=== PATIENT | female | born 1940 | race Caucasian/White ===

== ENCOUNTER → 2016-12-02 | Outpatient (CLI) | payer OTHER ==
[~2016-12-02] MED LIST: ASPI81TA21 PO; ATOR10TA82 PO; NXM/40 PO
[2016-12-02 09:51] LABS: ALT/SGPT 22 U/L (12-78); BLOOD UREA NITROGEN 20 mg/dl (7-18); BUN/CREATININE RATIO 25.3 (10-20); CARBON DIOXIDE 26 mmol/L (21-32); CHLORIDE 110 mmol/L (98-107); CHOLESTEROL 264 mg/dl (0-200); CREATININE 0.78 mg/dl (0.60-1.20); GLUCOSE 92 mg/dl (70-99); SODIUM 142 mmol/L (136-145); TRIGLYCERIDES 250 mg/dl (0-150); VERY LOW DENSITY LIPOPROT CALC 50 mg/dl
[2016-12-02 09:54] LABS: ALB/GLOB RATIO 1.1 (0.9-2); ALKALINE PHOSPHATASE 72 U/L (45-117); AST/SGOT 15 U/L (15-37); CHOLESTEROL/HDL RATIO 4.6; HDL CHOLESTEROL 57 mg/dl; LDL CHOLESTEROL CALCULATED 157 mg/dl
[2016-12-02 10:14] LABS: CALCIUM 9.5 mg/dl (8.5-10.1)
== END | disposition home or self-care (01) ==
LOC: C.LAB1850 07:16
PROVIDERS: ATTEND Internal Medicine
DX: E78.00 Pure hypercholesterolemia, unspecified (principal); R03.0 Elevated blood-pressure reading, without diagnosis of hypertension

== ENCOUNTER → 2017-06-12 | Outpatient (CLI) | payer OTHER ==
[2017-06-12 10:15] LABS: BASO % 0.2 %; BASO ABS # 0.01 K/uL (0-0.2); COMPLETE YES; EOS % 2.8 %; HEMATOCRIT 40.7 % (37-47); LYMPH % 45.8 %; LYMPH ABS # 2.64 K/uL (1.2-3.4); MEAN CELL VOLUME 98.3 fL (80-100); MEAN CORPUSCULAR HEMOGLOBIN 33.3 pg (25-34); MEAN CORPUSCULAR HGB CONC 33.9 g/dl (32-36); MEAN PLATELET VOLUME 11.1 fL (7.4-10.4); MONO % 7.3 %; NEUT % 43.9 %; PLATELET COUNT 192 K/uL (130-400); RED BLOOD COUNT 4.14 M/uL (4.2-5.4); WHITE BLOOD COUNT 5.77 K/uL (4.8-10.8)
[2017-06-12 10:45] LABS: ALKALINE PHOSPHATASE 66 U/L (45-117); ALT/SGPT 22 U/L (12-78); AST/SGOT 17 U/L (15-37); BLOOD UREA NITROGEN 18 mg/dl (7-18); BUN/CREATININE RATIO 22.3 (10-20); CALCIUM 8.9 mg/dl (8.5-10.1); CARBON DIOXIDE 24 mmol/L (21-32); CHLORIDE 107 mmol/L (98-107); CHOLESTEROL 259 mg/dl (0-200); CHOLESTEROL/HDL RATIO 4.4; CREATININE 0.79 mg/dl (0.60-1.20); GLUCOSE 98 mg/dl (70-99); HDL CHOLESTEROL 59 mg/dl; POTASSIUM 3.9 mmol/L (3.5-5.1); SODIUM 141 mmol/L (136-145)
[2017-06-12 10:59] LABS: ALB/GLOB RATIO 1.1 (0.9-2); LDL CHOLESTEROL CALCULATED 149 mg/dl; TRIGLYCERIDES 254 mg/dl (0-150); VERY LOW DENSITY LIPOPROT CALC 51 mg/dl
== END | disposition home or self-care (01) ==
LOC: C.LAB1850 07:53
PROVIDERS: ATTEND Internal Medicine
DX: R03.0 Elevated blood-pressure reading, without diagnosis of hypertension (principal); E78.00 Pure hypercholesterolemia, unspecified

== ENCOUNTER 2017-10-04 09:17 | Emergency (ER) | payer OTHER ==
[~2017-10-04] VITALS: Ht 157.5 cm; Wt 89.0 kg
[2017-10-04 09:29] VITALS: Ht 157.5 cm; Wt 89.0 kg
--- NOTE | 2017-10-04 09:53 | DIAGNOSTIC IMAGING REPORT ---
L HUMERUS MIN 2 VIEWS ROUTINE CLINICAL HISTORY: Left humeral pain status post trauma COMPARISON: None DISCUSSION: No acute fractures are visualized. Degenerative changes are present within the shoulder. Degenerative changes are present within the elbow. IMPRESSION: Arthritic change. No acute fractures or dislocations identified Electronically signed by: Renzo Blunt M.D. 10/04/2017 9:52 AM Dictated Date/Time: 10/04/2017 9:51 AM
[2017-10-04] MEDS ORDERED: LOVA10TA3 PO (10:08)
--- NOTE | 2017-10-04 10:46 | EMERGENCY ROOM VISIT NOTE ---
ED Visit Note First contact with patient: 09:34 CHIEF COMPLAINT: Left shoulder injury 2 days ago HISTORY OF PRESENT ILLNESS: Patient is a [id number] 77-year-old white female who presents emergency department accompanied by family for evaluation of left upper arm pain after a fall 2 days ago. Patient speaks primarily Indonesian, does understand some Ethiopian and her son is acting as a sybase developer for her. Patient was walking on a sidewalk 2 days ago, and fell, landing directly on the left shoulder with immediate onset of pain in the left upper arm. She denies hearing any cracking or popping at the time of the injury. She notes that the pain is between her shoulder and her left upper arm. There is limitation of motion of the shoulder because of the pain. She has not taken any medication for pain, but has been applied a topical Aspercreme. She denies any elbow or wrist pain. REVIEW OF SYSTEMS: Review of systems as per HPI. All other systems reviewed were negative. At least 6 systems reviewed. PMH: Electronic medical records are reviewed and summarized as above/below. See Problem List. SOCIAL HISTORY: Patient lives at home with her family. Non-smoker.. PHYSICAL EXAM: Vital Signs: Reviewed nurse's notes. CONSTITUTIONAL: Patient is a pleasant, well-appearing 77-year-old white female who is awake and alert and seated on the gurney in no acute distress. MUSCULOSKELETAL: Examination of the left upper extremity does not note any obvious deformity, no ecchymosis, abrasions or outward signs of trauma. Clavicle and acromioclavicular joint are nontender to palpation. She has some discomfort over the proximal to mid upper humerus, no fracture crepitus appreciated. Elbow is without joint effusion and wrist is nontender. Elbow and wrist range of motion are full. The patient can be passively internally and externally rotated at the shoulder, but has pain. She has discomfort with any attempts at forward flexion or abduction. The left upper extremity is neurovascularly intact. EMERGENCY DEPARTMENT COURSE: Left humerus x-rays were obtained and noted arthritic changes, but no evidence for acute fracture. No dislocation. X-ray findings were discussed with the patient's family. She was agreeable to an arm sling, however gentle range of motion exercises were discussed with her to minimize development of a frozen shoulder. She was encouraged to use Tylenol for discomfort, and follow-up with her PCP or for orthopedics for further care if her symptoms are not improving. Differential diagnoses entertained included clavicle fracture, acromioclavicular separation, shoulder dislocation/ subluxation, proximal humerus fracture, among others. Medication reconciliation: I attest that I have personally reviewed the patient' s current medication list. Blood pressure screening: Patient was found to have a slightly elevated blood pressure due to circumstances. I do not believe that the patient requires hypertension monitoring. L HUMERUS MIN 2 VIEWS ROUTINE CLINICAL HISTORY: Left humeral pain status post trauma COMPARISON: None DISCUSSION: No acute fractures are visualized. Degenerative changes are present within the shoulder. Degenerative changes are present within the elbow. IMPRESSION: Arthritic change. No acute fractures or dislocations identified Left shoulder injury 2 days ago Problem List Medical Problems: (1) Dyslipidemia Status: Chronic (2) GERD (gastroesophageal reflux disease) Status: Chronic Current/Historical Medications Scheduled Aspirin Enteric Coated (Ecotrin Or Generic), 81 MG PO DAILY Lovastatin (Mevacor), 10 MG PO HS Allergies Coded Allergies: Penicillins (Verified Allergy, Mild, 10/04/17) TACHYCARDIA Vital Signs Date Time Temp Pulse Resp B/P (MAP) Pulse Ox O2 Delivery O2 Flow Rate FiO2 10/04/17 11:20 37.2 66 18 155/99 94 10/04/17 11:10 66 18 155/99 94 Room Air 10/04/17 09:29 37.2 66 18 161/105 94 Room Air Departure Information Impression Primary Impression: Shoulder contusion Referrals RV. King MD (PCP) Patient Instructions My [facility] Additional Instructions Acetaminophen(Tylenol) may be used for fever or pain. Use 1000mg every six hours as needed. Avoid using more than 3000mg in a 24 hour period. This medication can be taken if you need to drive, work, or perform activities which may be dangerous when taking narcotic pain medication. Ice compresses for 20 minutes at a time four times daily for 2-3 days. Use the sling as instructed. Remove your arm from the sling 4-6 times a day and move all the joints around to keep them loose. Rest and elevate your injury. Continue current medications. Return to the ER immediately for any numbness, tingling, severe pain, extreme swelling in the extremity or as needed. Follow-up with your primary care physician or with orthopedic surgery if your symptoms are not improving in the next 5-7 days. Problem Qualifiers Primary Impression: Shoulder contusion Encounter type: initial encounter Laterality: left Qualified Codes: S40.012A - Contusion of left shoulder, initial encounter
[2017-10-04 11:20] VITALS: BP 155/99; PULSE 66; TEMP 37.2; O2SAT 94
== END 2017-10-04 11:21 | disposition home or self-care (01) ==
LOC: C.EDB 09:18 → C.EDA 11:21
DX: S40.012A Contusion of left shoulder, initial encounter (principal); W19.XXXA Unspecified fall, initial encounter; Y92.480 Sidewalk as the place of occurrence of the external cause; E78.5 Hyperlipidemia, unspecified; K21.9 Gastro-esophageal reflux disease without esophagitis; Z79.82 Long term (current) use of aspirin; Z79.899 Other long term (current) drug therapy; Z88.0 Allergy status to penicillin

== ENCOUNTER → 2017-12-11 | Outpatient (CLI) | payer OTHER ==
[~2017-12-11] MED LIST changes: +ASPI-319 PO; -ASPI81TA21 PO; -ATOR10TA82 PO; +LOVA10TA3 PO; -NXM/40 PO
[2017-12-11 09:50] LABS: HEMOGLOBIN A1C 5.5 % (4.5-5.6)
[2017-12-11 10:12] LABS: ALBUMIN 3.7 gm/dl (3.4-5.0); AST/SGOT 26 U/L (15-37); BLOOD UREA NITROGEN 15 mg/dl (7-18); CALCIUM 8.8 mg/dl (8.5-10.1); CARBON DIOXIDE 26 mmol/L (21-32); CREATININE 0.85 mg/dl (0.60-1.20); GLUCOSE 109 mg/dl (70-99); POTASSIUM 4.1 mmol/L (3.5-5.1); SODIUM 142 mmol/L (136-145)
[2017-12-11 10:22] LABS: ALKALINE PHOSPHATASE 71 U/L (45-117); ALT/SGPT 26 U/L (12-78); CHOLESTEROL 262 mg/dl (0-200); LDL CHOLESTEROL CALCULATED 171 mg/dl; TOTAL PROTEIN 7.4 gm/dl (6.4-8.2)
== END | disposition home or self-care (01) ==
LOC: C.LAB1850 07:08
PROVIDERS: ATTEND Internal Medicine
DX: E78.00 Pure hypercholesterolemia, unspecified (principal); R73.03 Prediabetes

== ENCOUNTER 2019-06-08 11:57 | Inpatient (IN) ==
[2019-06-08] MEDS ORDERED: ONDANSETRON INJ 2 MG/ML 2 ML VIAL IV STA (12:12)
[2019-06-08] MEDS ORDERED: SODIUM CHLORIDE 0.9% 1000ML 1,000 ML IV SCH (12:15)
[2019-06-08 12:32] LABS: Basophils # (auto) 0.03 K/uL (0-0.2); Basophils % (auto) 0.3 %; Hematocrit (blood only) 43.6 % (37-47); Hemoglobin 14.6 g/dL (12.0-16.0); Immature Granulocytes # (auto) 0.02 K/uL (0.00-0.02); Immature Granulocytes % (auto) 0.2 %; Lymphocytes # (auto) 3.35 K/uL (1.2-3.4); Lymphocytes % (auto) 34.3 %; Mean Corpuscular Hemoglobin 33.3 pg (25-34); Mean Corpuscular Hgb Conc 33.5 g/dL (32-36); Mean Corpuscular Volume 99.3 fL (80-100); Mean Platelet Volume 10.6 fL (7.4-10.4); Monocytes # (auto) 0.78 K/uL (0.11-0.59); Neutrophils % (auto) 56.2 %; Platelet Count 193 K/uL (130-400); RDW Coefficient of Variation 12.6 % (11.5-14.5); Red Blood Count 4.39 M/uL (4.2-5.4); White Blood Count 9.78 K/uL (4.8-10.8)
[2019-06-08 12:44] LABS: Partial Thromboplastin Ratio 0.9; Partial Thromboplastin Time 24.8 Seconds (21.0-31.0)
[2019-06-08] MEDS: MoRPHine SULFATE 4 MG/ML 1 ML CARP\\VIAL IV PRN ×2 (12:44→13:19)
[2019-06-08 12:47] LABS: Alanine Aminotransferase 21 U/L (12-78); Aspartate Aminotransferase 16 U/L (15-37); Blood Urea Nitrogen 29 mg/dl (7-18); Calcium 9.5 mg/dl (8.5-10.1); Carbon Dioxide 25 mmol/L (21-32); Chloride 108 mmol/L (98-107); Creatinine Clr Calc Pharmacy 43.7 ml/min; Est GFR (African American) 53.9; Est GFR (Non-African American) 46.5; Glucose 86 mg/dl (70-99); Lipase 176 U/L (73-393); Potassium 4.4 mmol/L (3.5-5.1); Sodium 139 mmol/L (136-145)
[2019-06-08 12:50] LABS: Appearance Urine Clear (Clear); Bacteria Urine Automated Negative (Negative); Bilirubin Urine Negative (Negative); Blood Urine Negative (Negative); Color Urine Yellow; Epithelial Cell Urine Auto 20-30 /lpf (0-5); Glucose Urine UA Negative (Negative); Ketones Urine Negative (Negative); Leukocyte Esterase Urine Trace (Negative); Nitrite Urine Negative (Negative); Protein Urine Negative (Negative); RBC Urine Automated 0-4 /hpf (0-4); Specific Gravity Urine 1.022 (1.000-1.030); Urobilinogen Urine Negative (Negative)
[2019-06-08 12:52] LABS: Albumin Globulin Ratio 1.1 (0.9-2); Alkaline Phosphatase 76 U/L (45-117); Bilirubin,Total 0.5 mg/dl (0.2-1); Globulin 3.6 gm/dl (2.5-4.0); Total Protein 7.6 gm/dl (6.4-8.2); Troponin I < 0.015 ng/ml (0-0.045)
--- NOTE | 2019-06-08 13:24 | CT Scan Report ---
CT SCAN OF THE ABDOMEN AND PELVIS WITHOUT CONTRAST CLINICAL HISTORY: Left flank pain COMPARISON STUDY: March 13, 2013 TECHNIQUE: CT scan of the abdomen and pelvis was performed from the lung bases to the proximal femurs . Images are reviewed in the axial, sagittal, and coronal planes. IV contrast was not administered fo r this examination. A dose lowering technique was utilized adhering to the principles of ALARA. CT DOSE: 1014.87 mGy.cm FINDINGS: The examination is compromised due to patient motion artifact. Lower chest: There is respiratory motion artifact. There are lower lobe atelectatic changes. There is cardiac enlargement. Liver: The unenhanced liver is normal in size, contour, and attenuation. There is no intrahepatic shannan iary ductal dilatation. Gallbladder: Unremarkable. Spleen: Normal in size and attenuation. Pancreas: Unremarkable. Adrenal glands: Unremarkable. Kidneys: There are multiple bilateral parapelvic renal cysts. There are bilateral prominent extrarena l pelvises. No renal calculi are visualized. No ureteral or bladder calculi are evident. There is equ ivocal infiltration of the left renal sinus fat. Evaluation is difficult due to motion artifact this level. Clinical and correlation in regards to a urinary tract infection is recommended. Bowel: There are no transition zones to indicate bowel obstruction. By history the appendix is surgic ally absent. There is no acute diverticulitis. Peritoneum: There is no intraperitoneal free air or abdominal ascites. Vasculature: The abdominal aorta is normal in course and caliber. Adenopathy: None. Pelvic viscera: The bladder, and pelvic viscera are unremarkable. Skeletal structures: No destructive osseous lesions are seen. IMPRESSION: 1. Examination limited due to patient motion artifact. 2. No evidence of bowel obstruction. No evidence of free air 3. Surgically absent appendix. No evidence of acute diverticulitis 4. No renal, ureteral, or bladder calculi identified 5. Prominent extrarenal pelvises. Possible mild infiltration of the left renal peripelvic fat. Clinic al correlation in regards to urinary tract infection is recommended Electronically signed by: Renzo Blunt M.D. 06/08/2019 1:23 PM
[2019-06-08] MEDS ORDERED: cefTRIAXone SODIUM 1,000 MG/50 ML BAG IV STA (14:06)
[2019-06-08] MEDS ORDERED: OPTIRAY 320 125ml IV PRN (16:04)
--- NOTE | 2019-06-08 16:20 | CT Scan Report ---
CT ANGIOGRAM OF THE CHEST CLINICAL HISTORY: Atypical chest pain. Possible pulmonary embolism. COMPARISON STUDY: No previous studies for comparison. TECHNIQUE: Following the IV administration of 119 mL of Optiray-320, CT angiogram of the thorax was p erformed from the thoracic inlet to the lung bases utilizing the pulmonary embolus protocol. Images a re reviewed in the axial, sagittal, and coronal planes. IV contrast was administered without complica tion. MIP imaging was performed. A dose lowering technique was utilized adhering to the principles o f ALARA. CT DOSE: 659.87 mGy.cm FINDINGS: No pathologically enlarged axillary mediastinal or hilar lymph nodes were visualized. There was no evidence of thoracic aortic dilatation. No central emboli are visualized. Evaluation of lower lobe pulmonary artery branches is limited due t o respiratory motion artifact No pleural effusions are visualized. Parenchymal evaluation is limited due to respiratory motion artifact. There are dependent atelectatic changes. There are no areas of parenchymal consolidation to indicate a pneumonia. There are no signi ficant pleural effusions. There is a solid 3 mm right upper lobe pulmonary nodule, and solid 3 mm rig ht lower lobe pulmonary nodule. In a low risk patient, no further follow-up is indicated. There are p ostsurgical changes within the right upper lobe. IMPRESSION: 1. Study compromised due to respiratory motion artifact. 2. No evidence of acute pulmonary embolism. There is limited evaluation of the lower lobe subsegment al branches. If there is a persistent strong clinical concern over the presence of pulmonary embolism , then correlation with leg ultrasonography should be obtained 3. No evidence of pneumonia 4. Subcentimeter pulmonary nodules. In a low risk patient, no further follow-up is indicated. Electronically signed by: Renzo Blunt M.D. 06/08/2019 4:19 PM
--- NOTE | 2019-06-08 16:42 | Emergency Department Note ---
Entered by Lydia Valladares acting as a scribe for Sergey Park DO History of Present Illness General Chief complaint: Flank Pain Stated complaint: LEFT SIDE FLANK PAIN Source: patient and family History of Present Illness Onset (ago): hour(s) 4 Location: left (flank) Radiation: abdomen Pain Consistency: + other (sudden) Maximum Pain Intensity: 10 Quality: + other (flank pain) Associated symptoms: + other (Left flank pain, dark colored urine); no chest pain and no nausea/vomiting Treatments prior to arrival: none The patient is a 78 year old female presenting to the Emergency Department complaining of persistent flank pain starting 4 hours ago. The patients son reports that the patient has severe left sided flank pain. He states that the patients pain radiates to her abdomen. He explains that the patients urine has been dark. He notes that the patient has never experienced these symptoms before. He adds that the patient has taken no medications for her symptoms. The patients son denies that the patient has nausea, vomiting, chest pain, history of kidney stones, use of alcohol and history of smoking. Home Medications Home Medications Medication Instructions Recorded Confirmed Type ibuprofen [Advil] 200 mg PO Q6H PRN 06/08/19 06/08/19 History lovastatin 20 mg PO QAM 06/08/19 06/08/19 History Allergies Allergy/AdvReac Type Severity Reaction Status Date / Time Penicillins Allergy Mild Verified 10/04/17 10:06 Past Med/Surg History Medical History High cholesterol Surgical History History of colonoscopy Social History Preferred Language: Yemeni Feels Safe at Home: Yes Smoking Status: Never smoker Review of Systems See HPI for pertinent positives & negatives. and A total of 10 systems reviewed and were otherwise negative Physical Exam Vital Signs Vital Signs - 24 hr 06/08/19 12:01 06/08/19 12:39 06/08/19 12:42 Temperature 37 C Temperature Source Oral Sepsis Recent Fever Within 48 Hours No Sepsis Action Taken by Nursing No Action Required Oxygen Flow Rate - Titration Pulse Oximetry Post Tiitration Pulse Rate 83 Pulse Rate [Left Finger] 70 Pulse Rhythm Regular Pulse Strength Normal Respiratory Rate 20 20 Respiratory Effort / Characteristics Non-Labored Spontaneous Non-Labored Respiratory Depth Normal Normal Respiratory Pattern Regular Regular Blood Pressure 152/83 H Blood Pressure [Right Arm] 158/75 H Blood Pressure Mean 106 Blood Pressure Mean [Right Arm] 102 Blood Pressure Position Sitting Pulse Oximetry 97 93 95 Oxygen Delivery Method Room Air Room Air Room Air 06/08/19 14:08 06/08/19 14:16 06/08/19 16:08 Temperature Temperature Source Sepsis Recent Fever Within 48 Hours Sepsis Action Taken by Nursing Oxygen Flow Rate - Titration 2 Pulse Oximetry Post Tiitration 94 Pulse Rate Pulse Rate [Left Finger] 64 71 Pulse Rhythm Pulse Strength Respiratory Rate 20 20 Respiratory Effort / Characteristics Respiratory Depth Respiratory Pattern Blood Pressure Blood Pressure [Right Arm] 131/60 167/92 H Blood Pressure Mean Blood Pressure Mean [Right Arm] 83 117 Blood Pressure Position Pulse Oximetry 91 87 L 91 Oxygen Delivery Method Room Air Room Air Room Air 06/08/19 16:24 Temperature Temperature Source Sepsis Recent Fever Within 48 Hours Sepsis Action Taken by Nursing Oxygen Flow Rate - Titration 2 Pulse Oximetry Post Tiitration 94 Pulse Rate Pulse Rate [Left Finger] Pulse Rhythm Pulse Strength Respiratory Rate Respiratory Effort / Characteristics Respiratory Depth Respiratory Pattern Blood Pressure Blood Pressure [Right Arm] Blood Pressure Mean Blood Pressure Mean [Right Arm] Blood Pressure Position Pulse Oximetry 87 L Oxygen Delivery Method Room Air GENERAL: Patient is awake, alert, and in no acute distress. Patient is very anxious appearing and uncomfortable. EYES: The conjunctivae are clear. The pupils are round and reactive. EARS, NOSE, MOUTH AND THROAT: The nose is without any evidence of any deformity. Mucous membranes are moist.Tongue is midline NECK: The neck is nontender and supple. RESPIRATORY: Normal respiratory effort is noted. There is no evidence of whee zing rhonchi or rales to auscultation. CARDIOVASCULAR: Regular rate and rhythm noted. There no murmurs rubs or gallops normal S1 normal S2 GASTROINTESTINAL: The abdomen is soft. Bowel sounds are present in all quadrants. Abdomen is nontender. BACK: Left CVA tenderness to percussion. No midline tenderness or or step-off noted range of motion in flexion extension as well as rotation no signs of mus jett spasm noted. MUSCULOSKELETAL/EXTREMITIES: There is no evidence of gross deformity. Full range of motion is noted in the hips and shoulders. SKIN: There is no obvious evidence of any rash. There are no petechiae, pallor or cyanosis noted. NEUROLOGIC: Patient is awake alert and oriented x3. Course 1209: The patient was evaluated in room B2, and a complete history and physical examination were performed. 1449: I reevaluated the patient at this time. 1637: I discussed the patient's case with Dr. Person - [facility] hospitalist. He will evaluate the patient for further management. Administered Medications Ioversol (Optiray 320 125ml) 119 ml IV ONCE PRN PRN Reason: Interaction Checking Stop: 06/12/19 16:03 Last Admin: 06/08/19 16:04 Dose: 119 ml Documented by: [id number] Morphine Sulfate (Morphine Sulfate) 4 mg IV Q15M PRN PRN Reason: Pain Stop: 06/22/19 12:11 Last Admin: 06/08/19 13:19 Dose: 4 mg Documented by: [id number] Admin: 06/08/19 12:44 Dose: 4 mg Documented by: [id number] Discontinued Medications Sodium Chloride (Nss 1000ml) 1,000 mls @ 999 mls/hr IV .Q1H1M DYLON Stop: 06/08/19 13:15 Last Infusion: 06/08/19 14:09 Dose: 0 mls/hr Documented by: [id number] Admin: 06/08/19 12:44 Dose: 999 mls/hr Documented by: [id number] Ceftriaxone Sodium (Rocephin) 1,000 mg in 50 mls @ 100 mls/hr IV NOW STA Stop: 06/08/19 14:35 Last Infusion: 06/08/19 14:47 Dose: 0 mls/hr Documented by: [id number] Admin: 06/08/19 14:14 Dose: 100 mls/hr Documented by: [id number] Ondansetron HCl (Zofran) 4 mg IV NOW STA Stop: 06/08/19 12:13 Last Admin: 06/08/19 12:44 Dose: 4 mg Documented by: [id number] Medical Decision Making Differential Diagnosis Differential diagnosis: Etiologies such as shingles, pyelonephritis/UTI, renal colic, appendicitis, diverticulitis, mesenteric ischemia, torsion, aortic pathology, infections, inf lammatory bowel disease, bowel obstruction, PUD, biliary pathology, as well as others were entertained. Medical Records Attestation: I reviewed the patient's medical records. Home Medications Current Medication List: was personally reviewed by me Laboratory Data Attestation: I reviewed the patient's lab results. Result diagrams: 06/08/19 12:20 06/08/19 12:20 Lab Results 06/08/19 06/08/19 06/08/19 Range/Units 12:20 12:20 12:20 WBC 9.78 (4.8-10.8) K/uL RBC 4.39 (4.2-5.4) M/uL Hgb 14.6 (12.0-16.0) g/dL Hct 43.6 (37-47) % MCV 99.3 (80-100) fL MCH 33.3 (25-34) pg MCHC 33.5 (32-36) g/dL RDW Std Deviation 46.0 (36.4-46.3) fL RDW Coeff of Maria De Jesus 12.6 (11.5-14.5) % Plt Count 193 (130-400) K/uL MPV 10.6 H (7.4-10.4) fL Immature Gran % (Auto) 0.2 % Neut % (Auto) 56.2 % Lymph % (Auto) 34.3 % [place] % (Auto) 8.0 % Eos % (Auto) 1.0 % Baso % (Auto) 0.3 % Immature Gran # (Auto) 0.02 (0.00-0.02) K/uL Neut # (Auto) 5.50 (1.4-6.5) K/uL Lymph # (Auto) 3.35 (1.2-3.4) K/uL [place] # (Auto) 0.78 H (0.11-0.59) K/uL Eos # (Auto) 0.10 (0-0.5) K/uL Baso # (Auto) 0.03 (0-0.2) K/uL PT 10.0 (9.0-12.0) Seconds INR 1.0 (0.9-1.1) APTT 24.8 (21.0-31.0) Seconds PTT Ratio 0.9 Sodium 139 (136-145) mmol/L Potassium 4.4 (3.5-5.1) mmol/L Chloride 108 H (98-107) mmol/L Carbon Dioxide 25 (21-32) mmol/L Anion Gap 6.0 (3-11) BUN 29 H (7-18) mg/dl Creatinine 1.13 (0.6-1.2) mg/dl Est Cr Clr Drug Dosing 43.7 ml/min Est GFR ( Amer) 53.9 Est GFR (Non-Af Amer) 46.5 BUN/Creatinine Ratio 26.0 H (10-20) Glucose 86 (70-99) mg/dl Calcium 9.5 (8.5-10.1) mg/dl Total Bilirubin 0.5 (0.2-1) mg/dl AST 16 (15-37) U/L ALT 21 (12-78) U/L Alkaline Phosphatase 76 (45-117) U/L Troponin I < 0.015 (0-0.045) ng/ml Total Protein 7.6 (6.4-8.2) gm/dl Albumin 4.0 (3.4-5.0) gm/dl Globulin 3.6 (2.5-4.0) gm/dl Albumin/Globulin Ratio 1.1 (0.9-2) Lipase 176 (73-393) U/L Urine Color Urine Appearance (Clear) Urine pH (4.5-7.5) Ur Specific [place] (1.000-1.030) Urine Protein (Negative) Urine Glucose (UA) (Negative) Urine Ketones (Negative) Urine Blood (Negative) Urine Nitrite (Negative) Urine Bilirubin (Negative) Urine Urobilinogen (Negative) Ur Leukocyte Esterase (Negative) Urine WBC (Auto) (0-5) /hpf Urine RBC (Auto) (0-4) /hpf U Hyaline Cast (Auto) (0-5) /lpf U Epithel Cells (Auto) (0-5) /lpf Urine Bacteria (Auto) (Negative) 06/08/19 Range/Units 12:35 WBC (4.8-10.8) K/uL RBC (4.2-5.4) M/uL Hgb (12.0-16.0) g/dL Hct (37-47) % MCV (80-100) fL MCH (25-34) pg MCHC (32-36) g/dL RDW Std Deviation (36.4-46.3) fL RDW Coeff of Maria De Jesus (11.5-14.5) % Plt Count (130-400) K/uL MPV (7.4-10.4) fL Immature Gran % (Auto) % Neut % (Auto) % Lymph % (Auto) % [place] % (Auto) % Eos % (Auto) % Baso % (Auto) % Immature Gran # (Auto) (0.00-0.02) K/uL Neut # (Auto) (1.4-6.5) K/uL Lymph # (Auto) (1.2-3.4) K/uL [place] # (Auto) (0.11-0.59) K/uL Eos # (Auto) (0-0.5) K/uL Baso # (Auto) (0-0.2) K/uL PT (9.0-12.0) Seconds INR (0.9-1.1) APTT (21.0-31.0) Seconds PTT Ratio Sodium (136-145) mmol/L Potassium (3.5-5.1) mmol/L Chloride (98-107) mmol/L Carbon Dioxide (21-32) mmol/L Anion Gap (3-11) BUN (7-18) mg/dl Creatinine (0.6-1.2) mg/dl Est Cr Clr Drug Dosing ml/min Est GFR ( Amer) Est GFR (Non-Af Amer) BUN/Creatinine Ratio (10-20) Glucose (70-99) mg/dl Calcium (8.5-10.1) mg/dl Total Bilirubin (0.2-1) mg/dl AST (15-37) U/L ALT (12-78) U/L Alkaline Phosphatase (45-117) U/L Troponin I (0-0.045) ng/ml Total Protein (6.4-8.2) gm/dl Albumin (3.4-5.0) gm/dl Globulin (2.5-4.0) gm/dl Albumin/Globulin Ratio (0.9-2) Lipase (73-393) U/L Urine Color Yellow Urine Appearance Clear (Clear) Urine pH 5.0 (4.5-7.5) Ur Specific [place] 1.022 (1.000-1.030) Urine Protein Negative (Negative) Urine Glucose (UA) Negative (Negative) Urine Ketones Negative (Negative) Urine Blood Negative (Negative) Urine Nitrite Negative (Negative) Urine Bilirubin Negative (Negative) Urine Urobilinogen Negative (Negative) Ur Leukocyte Esterase Trace H (Negative) Urine WBC (Auto) 1-5 (0-5) /hpf Urine RBC (Auto) 0-4 (0-4) /hpf U Hyaline Cast (Auto) 1-5 (0-5) /lpf U Epithel Cells (Auto) 20-30 H (0-5) /lpf Urine Bacteria (Auto) Negative (Negative) Imaging Data Radiologist's Impression: Radiology results as stated below per my review and the radiologist's interpretation: CT SCAN OF THE ABDOMEN AND PELVIS WITHOUT CONTRAST CLINICAL HISTORY: Left flank pain COMPARISON STUDY: March 13, 2013 TECHNIQUE: CT scan of the abdomen and pelvis was performed from the lung bases to the proximal femurs. Images are reviewed in the axial, sagittal, and coronal planes. IV contrast was not administered for this examination. A dose lowering technique was utilized adhering to the principles of ALARA. CT DOSE: 1014.87 mGy.cm FINDINGS: The examination is compromised due to patient motion artifact. Lower chest: There is respiratory motion artifact. There are lower lobe atelectatic changes. There is cardiac enlargement. Liver: The unenhanced liver is normal in size, contour, and attenuation. There is no intrahepatic biliary ductal dilatation. Gallbladder: Unremarkable. Spleen: Normal in size and attenuation. Pancreas: Unremarkable. Adrenal glands: Unremarkable. Kidneys: There are multiple bilateral parapelvic renal cysts. There are bilate ral prominent extrarenal pelvises. No renal calculi are visualized. No ureteral or bladder calculi are evident. There is equivocal infiltration of the left renal sinus fat. Evaluation is difficult due to motion artifact this level. Clinical and correlation in regards to a urinary tract infection is recommended. Bowel: There are no transition zones to indicate bowel obstruction. By history the appendix is surgically absent. There is no acute diverticulitis. Peritoneum: There is no intraperitoneal free air or abdominal ascites. Vasculature: The abdominal aorta is normal in course and caliber. Adenopathy: None. Pelvic viscera: The bladder, and pelvic viscera are unremarkable. Skeletal structures: No destructive osseous lesions are seen. IMPRESSION: 1. Examination limited due to patient motion artifact. 2. No evidence of bowel obstruction. No evidence of free air 3. Surgically absent appendix. No evidence of acute diverticulitis 4. No renal, ureteral, or bladder calculi identified 5. Prominent extrarenal pelvises. Possible mild infiltration of the left renal peripelvic fat. Clinical correlation in regards to urinary tract infection is recommended Electronically signed by: Renzo Blunt M.D. 06/08/2019 1:[address] ANGIOGRAM OF THE CHEST CLINICAL HISTORY: Atypical chest pain. Possible pulmonary embolism. COMPARISON STUDY: No previous studies for comparison. TECHNIQUE: Following the IV administration of 119 mL of Optiray-320, CT angiogram of the thorax was performed from the thoracic inlet to the lung bases utilizing the pulmonary embolus protocol. Images are reviewed in the axial, sagittal, and coronal planes. IV contrast was administered without complication. MIP imaging was performed. A dose lowering technique was utilized adhering to the principles of ALARA. CT DOSE: 659.87 mGy.cm FINDINGS: No pathologically enlarged axillary mediastinal or hilar lymph nodes were visualized. There was no evidence of thoracic aortic dilatation. No central emboli are visualized. Evaluation of lower lobe pulmonary artery branches is limited due to respiratory motion artifact No pleural effusions are visualized. Parenchymal evaluation is limited due to respiratory motion artifact. There are dependent atelectatic changes. There are no areas of parenchymal consolidation to indicate a pneumonia. There are no significant pleural effusions. There is a solid 3 mm right upper lobe pulmonary nodule, and solid 3 mm right lower lobe pulmonary nodule. In a low risk patient, no further follow-up is indicated. There are postsurgical changes within the right upper lobe. IMPRESSION: 1. Study compromised due to respiratory motion artifact. 2. No evidence of acute pulmonary embolism. There is limited evaluation of the lower lobe subsegmental branches. If there is a persistent strong clinical concern over the presence of pulmonary embolism, then correlation with leg ultrasonography should be obtained 3. No evidence of pneumonia 4. Subcentimeter pulmonary nodules. In a low risk patient, no further follow-up is indicated. Electronically signed by: Renzo Blunt M.D. 06/08/2019 4:19 PM ECG Data Attestation: I personally reviewed and interpreted this ECG as follows: Indication: + abdominal pain and + other (flank pain) Rate (beats per minute): 74 Rhythm: + normal sinus ECG ST segments: no ST depression and no ST elevation ECG Findings: no PACs and no PVCs Comparison ECG Date: from (03/13/13) Change: no significant change Blood Pressure Blood Pressure Findings: Elevated blood pressure Blood Pressure Disposition: further management by hospitalist MDM Narrative The patient is a 78-year-old female who presented to the emergency department for an evaluation of left flank pain. The patient appears to have left flank pain which goes into the lower chest. She has no specific chest pain and initially did not complain of any shortness of breath. The patient's presentation appeared to be consistent with a kidney stone. She was treated with IV fluids and IV pain medication. The patient's CAT scan did not show a definite kidney stone however she did have some abnormalities in the collecting system raising the possibility of infection. She was treated with IV antibiotics. She was reevaluated multiple times. She continued to have pain and started to have decreased oxygen saturation. I am unsure if this was from the morphine that she was given so morphine was held and she was reevaluated multiple times. She continued to have low oxygen saturation. For this reason CT the chest was obtained but no definite sign of pulmonary embolism was noted. I discussed patient's laboratory and radiographic studies with her and her son. Because of her ongoing symptoms as well as her hypoxia I discussed her case with the on-call [facility] hospitalist. They have agreed to evaluate the patient in the emergency department for further management disposition. Impression & Plan Left flank pain, UTI (urinary tract infection), Hypoxia Discharge Plan Visit Data Chief Complaint: Flank Pain Stated Complaint: LEFT SIDE FLANK PAIN ED Provider: Sergey Park Discharge Problem: Left flank pain, UTI (urinary tract infection), Hypoxia Patient Disposition: Being Evaluated by Hospitalist Forms Stand Alone Forms: My [facility] [employer] Prescriptions Prescriptions: No Action ibuprofen [Advil] 200 mg Tablet 200 mg PO Q6H PRN (Reason: Pain) RF: 0 lovastatin 20 mg tablet 20 mg PO QAM RF: 0 Referrals Referrals: Dodie Mares MD [Primary Care Provider] - Discharge Problem: UTI (urinary tract infection) Qualifiers: Urinary tract infection type: site unspecified Hematuria presence: without hematuria Qualified Code(s): N39.0 - Urinary tract infection, site not specified The scribe's documentation has been prepared under my direction and personally reviewed by me in its entirety. I confirm that the note above accurately reflects all work, treatment, procedures, and medical decision making performed by me.
[2019-06-08] MEDS ORDERED: KETOROLAC TROMETHAMINE 15 MG/ML VIAL IV ONE (17:17)
--- NOTE | 2019-06-08 17:23 | History & Physical Report ---
Date of Service June 08, 2019 Assessment & Plan (1) Left flank pain: Uncertain etiology CTAP neg for stones, infiltration of L renal peripelvic fat noted UA with trace leuk est, neg nitrites, cx pending Started on ceftriaxone in the ED, will continue until cx is resulted LFTs WNL Cr WNL Toradol, heating pad urology c/s pending (2) Hypoxia: Uncertain etiology, possibly related to pain medication Trop neg x1 CTA unable to rule out PE fully in smaller segments LE US pending, exam neg EKG NSR (3) Abnormal urine: As noted above (4) High cholesterol: Holding statin (5) DVT prophylaxis: SCDs Code status will need revisited with pt and family once managed security sales consultant pad is available History of Present Illness Primary Care Provider: Dodie Mares MD 78 y/o F c/o L flank pain. 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 Son is present to translate. Pt had sudden onset of L sided flank pain around 8-9a today when she was getting out of bed. It continued to worsen. She tried to lie back down, but this did not help. She has never had pain like this prior. She felt fine yesterday. Pt denies fever, SOB, chest pain, abd pain, n/v/c/d, LE pain or swelling, urinary sx. Pt was given pain medication in the ED and her O2 sats dropped. O2 was applied. Prior to this she was not SOB. 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 Allergies Allergy/AdvReac Type Severity Reaction Status Date / Time Penicillins Allergy Mild Verified 10/04/17 10:06 Home Medications Home Medications Medication Instructions Recorded Confirmed Type ibuprofen [Advil] 200 mg PO Q6H PRN 06/08/19 06/08/19 History lovastatin 20 mg PO QAM 06/08/19 06/08/19 History Past Med/Surg History Medical History High cholesterol Surgical History History of colonoscopy Social History Preferred Language: Macedonian Feels Safe at Home: Yes Smoking Status: Never smoker Hx Alcohol Use: No Hx Substance Use: No Review of Systems Review of Systems: Pertinent positives and negatives reviewed in HPI--all others negative Physical Exam Constitutional: WD/WN, vitals as above Eyes: normal visual [place] by confrontation and + anicteric sclerae Neck: normal visual inspection and trachea midline Respiratory: normal respiratory effort, lungs clear to auscultation Cardiovascular: Rate/Rhythm: regular rate and regular rhythm Gastrointestinal (Abdomen): Inspection/Auscultation: abdomen not distended Percussion/Palpation: abdomen soft; abdomen nontender Musculoskeletal: Head/Neck/Chest: normocephalic and head atraumatic negative for edema, peripheral pulses intact + L CVA tenderness to palpation, did not percuss Skin: no rashes, warm and dry Neurologic: awake; not confused Speech / Cognition: normal speech Psychiatric: A+Ox3, euthymic affect Results & Data Vital Signs (Past 12 Hours) Vital Signs Temp Pulse Pulse Resp BP BP Pulse Ox 06/08/19 16:24 87 L 06/08/19 16:08 71 20 167/92 H 91 06/08/19 14:16 87 L 06/08/19 14:08 64 20 131/60 91 06/08/19 12:42 70 20 158/75 H 95 06/08/19 12:39 93 06/08/19 12:01 37 C 83 20 152/83 H 97 Diagnostic Findings CTAP: 1. Examination limited due to patient motion artifact. 2. No evidence of bowel obstruction. No evidence of free air 3. Surgically absent appendix. No evidence of acute diverticulitis 4. No renal, ureteral, or bladder calculi identified 5. Prominent extrarenal pelvises. Possible mild infiltration of the left renal peripelvic fat. Clinical correlation in regards to urinary tract infection is recommended CTA: 1. Study compromised due to respiratory motion artifact. 2. No evidence of acute pulmonary embolism. There is limited evaluation of the lower lobe subsegmental branches. If there is a persistent strong clinical concern over the presence of pulmonary embolism, then correlation with leg ultrasonography should be obtained 3. No evidence of pneumonia 4. Subcentimeter pulmonary nodules. In a low risk patient, no further follow-up is indicated. ECG Rhythm: normal sinus Code Status & VTE Plan Code Status Full code for now, however pt did not understand the question. Son decided that she would be full code and this could be discussed via the ipad managed security sales consultant once able to use VTE Prophylaxis Plan VTE Prophylaxis will be ordered: Yes PG Care Time/CCT Total # of Minutes Spent Total Time Spent with Patient: Total time spent is greater than 50% in coordination of care (as documented) at patient's floor/unit and/or counseling patient:
[2019-06-08] MEDS ORDERED: ACETAMINOPHEN 325 MG TAB PO PRN (18:57)
[2019-06-08] MEDS ORDERED: ONDANSETRON INJ 2 MG/ML 2 ML VIAL IV PRN (18:57)
[2019-06-08] MEDS ORDERED: IBUPROFEN 200 MG TAB PO PRN (18:57)
[2019-06-08] MEDS ORDERED: MAGNESIUM HYDROXIDE SUSP 30 ML UDC PO PRN (18:57)
[2019-06-08] MEDS ORDERED: PNEUMOCOCCAL POLYSACCHARIDES 25 MCG/0.5 ML VIAL/SYR IM ONE (22:00)
[2019-06-08] MEDS ORDERED: PNEUMOCOCCAL ADMINISTRATION CHARGE ONE (22:00)
--- NOTE | 2019-06-08 22:58 | Ultrasound Report ---
US venous doppler LE BI CLINICAL HISTORY: Atypical chest pain. Possible pulmonary embolus. Suboptimal CT angiography of the c hest with recommendation for venous Doppler ultrasound. COMPARISON STUDY: No previous studies for comparison. FINDINGS: Real-time and color flow Doppler imaging were performed. Flow was seen within the femoral, popliteal and calf veins with no intraluminal thrombus demonstrated. The saphenous vein is patent. IMPRESSION: No evidence of lower extremity DVT. Electronically signed by: Renzo Blunt M.D. 06/08/2019 10:56 PM
[2019-06-09 07:32] LABS: BUN Creatinine Ratio 28.3 (10-20); Calcium 8.8 mg/dl (8.5-10.1); Creatinine Clr Calc Pharmacy 50.8 ml/min; Est GFR (African American) 64.8; Est GFR (Non-African American) 55.9
--- NOTE | 2019-06-09 09:26 | Urology Consultation ---
Date of Consultation June 09, 2019 Assessment & Plan (1) Left flank pain: Currently being treated for UTI - cont abx until culture results overall, the imaging findings do not really present any structural issues that would warrant further interrogation or intervention from urology seems to be asymptomatic this AM please call us if further issues History of Present Illness Attending Physician: Raheel Ramirez Admitted yesterday with left flank pain denies any current pain Urology consulted secondary to CT findings? Appears to have an extrarenal pelvis on the left (this is a normal variant) and possibly a peripelvic cyst vs some sinus fat inflammation UA essentially clear culture pending no leukocytosis no urinary symptoms no fevers Allergies Allergy/AdvReac Type Severity Reaction Status Date / Time Penicillins Allergy Mild Verified 10/04/17 10:06 Home Medications Home Medications Medication Instructions Recorded Confirmed Type ibuprofen [Advil] 200 mg PO Q6H PRN 06/08/19 06/08/19 History lovastatin 20 mg PO QAM 06/08/19 06/08/19 History Patient History Medical History High cholesterol Surgical History History of colonoscopy Social History Preferred Language: Eritrean Communication Ability: [place] Dent Remover Required: Yes Beliefs That Will Affect Care: Evangelical Evangelical Beliefs: [place] HINDU Current Living Situation: Spouse Feels Safe at Home: Yes Smoking Status: Never smoker Hx Alcohol Use: No Hx Substance Use: No Review of Systems Review of Systems: All systems reviewed & are unremarkable except as noted in HPI & below challenging to fully assess secondary to language barrier Physical Exam Constitutional: well developed and well nourished Neck: neck nontender Respiratory: normal respiratory effort; no respiratory distress and does not use accessory muscles Cardiovascular: Rate/Rhythm: regular rate Vessels: radial pulses present Extremities: no edema Gastrointestinal (Abdomen): Inspection/Auscultation: abdomen normal to inspection Percussion/Palpation: abdomen soft; abdomen nontender and no guarding Musculoskeletal: Head/Neck/Chest: normocephalic and head atraumatic Extremities: extremities normal to inspection Skin: no rashes and no lesions Trauma: no evidence of skin trauma Neurologic: awake; not obtunded Speech / Cognition: normal speech Motor/Sensory: no tremor Psychiatric: Orientation: alert and oriented x 3 Lymphatic: no lymphadenopathy Results & Data Vital Signs (Past 12 Hours) Vital Signs Temp Pulse Pulse Resp BP Pulse Ox 06/09/19 07:19 36.7 C 61 18 123/67 94 06/09/19 03:02 36.8 C 65 18 117/74 92 06/08/19 23:00 36.4 C L 65 18 136/76 93 06/08/19 22:20 68 PG Care Time/CCT Total # of Minutes Spent Total Time Spent with Patient: Total time spent is greater than 50% in coordination of care (as documented) at patient's floor/unit and/or counseling patient:
--- NOTE | 2019-06-09 10:46 | Hospitalist Progress Note ---
Date of Service June 09, 2019 Assessment & Plan (1) Left flank pain: Uncertain etiology CTAP neg for stones, infiltration of L renal peripelvic fat noted UA with trace leuk est, neg nitrites, cx pending Started on ceftriaxone in the ED, will continue until cx is resulted LFTs WNL Cr WNL Toradol, heating pad urology consulted, no intervention required at this time.once cultures are finalized, patient can then be discharged. (2) Hypoxia: Uncertain etiology, possibly related to pain medication Trop neg x1 CTA unable to rule out PE fully in smaller segments LE US negative. EKG NSR (3) Abnormal urine: As noted above (4) High cholesterol: Holding statin (5) DVT prophylaxis: SCDs fullcode Subjective 78 yo female reports no new symptoms. Patient is currently denying any left flank pain. Patient denies any fever, chills, nausea, vomiting. Review of Systems Review of Systems: All systems reviewed & are unremarkable except as noted in HPI & below Physical Exam Physical Exam: Constitutional: WD/WN, vitals as above Eyes: normal visual [place] by confrontation and + anicteric sclerae Neck: normal visual inspection and trachea midline Respiratory: normal respiratory effort, lungs clear to auscultation Cardiovascular: Rate/Rhythm: regular rate and regular rhythm Gastrointestinal (Abdomen): Inspection/Auscultation: abdomen not distended Percussion/Palpation: abdomen soft; abdomen nontender Musculoskeletal: Head/Neck/Chest: normocephalic and head atraumatic negative for edema, peripheral pulses intact + L CVA tenderness to palpation, did not percuss Skin: no rashes, warm and dry Neurologic: awake; not confused Speech / Cognition: normal speech Psychiatric: A+Ox3, euthymic affect Results & Data Vital Signs (Past 12 Hours) Vital Signs Temp Pulse Pulse Resp BP Pulse Ox 06/09/19 08:00 60 06/09/19 07:19 36.7 C 61 18 123/67 94 06/09/19 03:02 36.8 C 65 18 117/74 92 06/08/19 23:00 36.4 C L 65 18 136/76 93 PG Care Time/CCT Total # of Minutes Spent Total Time Spent with Patient: Total time spent is greater than 50% in coordination of care (as documented) at patient's floor/unit and/or counseling patient:
[2019-06-09] MEDS ORDERED: cefTRIAXone SODIUM 2,000 MG in DEXTROSE 5% 50 ML IV SCH (14:00)
--- NOTE | 2019-06-10 09:50 | Discharge Summary ---
Date of Service June 10, 2019 Admission HPI Per Admitting Provider 78 y/o F c/o L flank pain. 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 Son is present to translate. Pt had sudden onset of L sided flank pain around 8-9a today when she was getting out of bed. It continued to worsen. She tried to lie back down, but this did not help. She has never had pain like this prior. She felt fine yesterday. Pt denies fever, SOB, chest pain, abd pain, n/v/c/d, LE pain or swelling, urinary sx. Pt was given pain medication in the ED and her O2 sats dropped. O2 was applied. Prior to this she was not SOB. 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 Principal Diagnosis UTI, possible pyelonephritis Discharge Exam Constitutional WD/WN, vitals as above Eyes PERRL, conjunctivae normal, anicteric sclerae ENMT external ear and nose normal, oropharynx normal Neck trachea midline, no thyromegaly Respiratory normal respiratory effort, lungs clear to auscultation Cardiovascular RRR, no murmur, no edema Gastrointestinal (Abdomen) normal bowel sounds, soft, nontender, no hepatosplenomegaly Musculoskeletal no cyanosis or clubbing, extremities motor strength 5/5 Skin no rashes, warm and dry Neurologic patellar DTR's 2+ bilat, sensation intact and PERRL, EOMI, accommodation nl, no face palsy, no dysarthria Psychiatric A+Ox3, euthymic affect Lymphatic no cervical or axillary lymphadenopathy Discharge Data Allergies Allergy/AdvReac Type Severity Reaction Status Date / Time Penicillins Allergy Mild Verified 10/04/17 10:06 Consultations 06/08/19 16:39 ED Decision to Admit Stat 06/08/19 18:57 Consult Urology Routine Ordered Studies 06/08/19 12:12 CT abd pelvis wo con Stat 06/08/19 15:33 CT angio chest PE protocol Stat 06/08/19 18:57 US venous doppler LE BI Stat Hospital Course (1) Left flank pain: Uncertain etiology, in hind sight it could be a mild pyelonephritis CTAP neg for stones, infiltration of L renal peripelvic fat noted UA with trace leuk est, neg nitrites urine culture with three organisms, all moderate counts repeat culture was recommended but at this point she was on Ceftriaxone tolerating cephalosporins well will d/c home on Cefdinir 300mg BID x 10 more days recommend rest and stay well hydrated follow up with PCP in 5-7 days (2) Pyelonephritis: see above (3) Hypoxia: Uncertain etiology, possibly related to pain medication Trop neg x1 CTA unable to rule out PE fully in smaller segments LE US negative. EKG NSR titrated to room air quickly (4) Abnormal urine: As noted above urine culture with three organisms (5) High cholesterol: resume statin on discharge (6) DVT prophylaxis: SCDs fullcode Total Time Total Time Spent Total Time Spent (In Minutes): 31 minutes Total Time Includes: Examination of the Patient, Discharge Planning, Medication Reconciliation and Other (discussion with patient's son in the room) Discharge Plan Discharge Items Patient Disposition: Home - Self-Care Reason For Visit: FLANK PAIN, O2 DESATS Discharge Diagnosis: Urinary tract infection, possible pyelonephritis (kidney infection) Flank pain, resolved Condition on Discharge: Good Goals: complete course of antibiotics, Cefdinir, for urinary tract infection Activity: Resume your previous activity Non-emergency contact: Primary Care Provider Call non-emergency contact if: you have any medication questions, your symptoms worsen and you have a fever Follow-up/Referrals: Dodie Mares MD [Primary Care Provider] - Diet: Regular Addtl Attending Provider Instructions: Medications: - CEFDINIR: 300mg twice a day for 10 days, next dose is this evening Urinary tract infection: you presented with flank pain, some evidence of infection in kidney (mild inflammation), there was NO kidney stone urine culture with three organisms, all small counts will discharge you home on Cefdinir 300mg twice a day for 10 more days due to possible kidney involvement over the next few days I recommend that you get rest and make sure you stay well hydrated I recommend that you call Dr. Newton's office to request hospital follow up appt for 5-7 days from now Pending Studies at Discharge: No Stand-Alone Forms: My PSafe, Smoking Cessation Medications and DC Order Prescriptions: New cefdinir 300 mg capsule 300 mg PO BID 10 Days Qty: 20 RF: 0 Continued ibuprofen [Advil] 200 mg Tablet 200 mg PO Q6H PRN (Reason: Pain) RF: 0 lovastatin 20 mg tablet 20 mg PO QAM RF: 0 Discharge Orders: Discharge Order (Routine); Ordered 06/10/19 Ordered By: Jamin Anderson Admission Data Admit Date/Time: 06/08/19 17:16 Attending Provider: Jamin Anderson Admit Provider: Kamala Person Primary Care Provider: Dodie Mares V. Other Providers: Kamala Person ; Chris Silva
== END 2019-06-10 14:40 | disposition home or self-care (01) | DRG 690 ==
LOC: ED 11:57 → SUATTDRO 17:16 → 2W 17:16

== ENCOUNTER 2024-03-03 19:42 | Observation (INO) ==
[2024-03-03 20:34] LABS: Basophils # (auto) 0.04 K/uL (0.00-0.20); Basophils % (auto) 0.4 %; Eosinophils # (auto) 0.19 K/uL (0.00-0.50); Hematocrit (blood only) 42.1 % (37.0-47.0); Hemoglobin 14.2 g/dl (12.0-16.0); Immature Granulocytes # (auto) 0.02 K/uL (0.01-0.20); Immature Granulocytes % (auto) 0.2 %; Lymphocytes % (auto) 34.4 %; Mean Corpuscular Hemoglobin 33.2 pg (25.0-34.0); Mean Corpuscular Hgb Conc 33.7 g/dL (32.0-36.0); Mean Corpuscular Volume 98.4 fL (80.0-100.0); Mean Platelet Volume 11.1 fL (9.4-12.4); Monocytes # (auto) 0.71 K/uL (0.11-0.59); Monocytes % (auto) 7.6 %; Neutrophils # (auto) 5.15 K/uL (1.40-6.50); Neutrophils % (auto) 55.4 %; Platelet Count 199 K/uL (130-400); RDW Coefficient of Variation 12.8 % (11.5-14.5); RDW Standard Deviation 45.8 fL (36.4-46.3); Red Blood Count 4.28 M/uL (4.20-5.40); White Blood Count 9.31 K/ul (4.8-10.8)
[2024-03-03 20:43] LABS: Partial Thromboplastin Time 27 Seconds (21-31); Prothrombin Time 10.8 Seconds (9.0-12.0)
[2024-03-03 20:57] LABS: Albumin Globulin Ratio 1.5 (0.9-2); Albumin Level 4.4 gm/dl (3.4-5.0); BUN Creatinine Ratio 23.6 (10-20); Bilirubin,Total 0.6 mg/dl (0.2-1.0); Calcium 9.6 mg/dl (8.6-10.3); Creatinine Clr Calc Pharmacy 41.7 ml/min; Est GFR (African American) 56.2 ml/min; Est GFR (Non-African American) 48.5 ml/min; Total Protein 7.4 gm/dl (6.0-8.3); Troponin I High Sensitivity 9.5 pg/ml (0-14)
[2024-03-03] MEDS: SODIUM CHLORIDE 0.9% 500 ML IV ONE (22:10)
[2024-03-03] MEDS: OPTIRAY 320 125ml IV ONE (22:34)
--- NOTE | 2024-03-04 00:34 | CT Scan Report ---
Exam(s): CT HEAD Without Contrast EXAM: CT Head Without Intravenous Contrast CLINICAL HISTORY: Reason for exam: dizziness. TECHNIQUE: Axial computed tomography images of the head/brain without intravenous contrast. CTDI is 35.65 mGy and DLP is 546.36 mGy-cm. Automated exposure control was utilized for the study. A dose lowering technique was utilized adhering to the principles of ALARA. COMPARISON: January 12, 2024 FINDINGS: Brain: Mild diffuse cerebral atrophy and periventricular white matter low density consistent with chronic small vessel disease and/or senescent changes, unchanged. No acute large vessel infarct or intracranial hemorrhage is seen. Ventricles: Mildly dilated. No mass or hemorrhage. Bones/joints: Unremarkable. No acute fracture. Soft tissues: Unremarkable. Sinuses: Unremarkable as visualized. No acute sinusitis. Mastoid air cells: Unremarkable as visualized. No mastoid effusion. IMPRESSION: Mild diffuse cerebral atrophy and periventricular white matter low density consistent with chronic small vessel disease and/or senescent changes, unchanged. No acute large vessel infarct or intracranial hemorrhage is seen. Electronically signed by: Santana Rayo MD 03/04/24 00:33 AM
--- NOTE | 2024-03-04 00:38 | CT Scan Report ---
Exam(s): CTA CHEST IV Amt: 116 ml optiray 320 EXAM: CT Angiography Chest With Intravenous Contrast CLINICAL HISTORY: Reason for exam: PE. TECHNIQUE: Axial computed tomographic angiography images of the chest with intravenous contrast. CTDI is 49.51 mGy and DLP is 813.96 mGy-cm. Automated exposure control was utilized for the study. A dose lowering technique was utilized adhering to the principles of ALARA. MIP reconstructed images were created and reviewed. COMPARISON: No relevant prior studies available. FINDINGS: Pulmonary arteries: The pulmonary arterial tree is well opacified with contrast. No pulmonary embolism is identified. Aorta: The aorta is mildly calcified but nondilated. There is no aneurysm or dissection. Lungs: Lungs are well-inflated. There are scattered linear scarring and/or subsegmental atelectasis in both lung bases. No acute appearing infiltrate, pneumothorax, or pleural effusion is seen. No mass. Pleural space: See above. Heart: The heart is borderline enlarged. Severe coronary calcification is present involving the left main, LAD, circumflex, and right coronary arteries. No significant pericardial effusion. Bones/joints: Mild multilevel degenerative change are seen throughout the spine. No acute fracture or destructive bone lesion is seen. There are several old healed right rib fractures. No dislocation. Soft tissues: Unremarkable. Lymph nodes: Unremarkable. No enlarged lymph nodes. IMPRESSION: 1. Lungs are well-inflated. There are scattered linear scarring and/or subsegmental atelectasis in both lung bases. No acute appearing infiltrate, pneumothorax, or pleural effusion is seen. 2. The pulmonary arterial tree is well opacified with contrast. No pulmonary embolism is identified. 3. The aorta is mildly calcified but nondilated. There is no aneurysm or dissection. 4. The heart is borderline enlarged. Severe coronary calcification is present involving the left main, LAD, circumflex, and right coronary arteries. Electronically signed by: Santana Rayo MD 03/04/24 00:37 AM
--- NOTE | 2024-03-04 01:12 | History & Physical Report ---
Date of Service March 04, 2024 Assessment & Plan (1) Chest pain: Plan: 83 F with PMH CAD, LV mural thrombus, HTN, HLD, osteopenia, who presented to ER with persistent L chest pain and dizziness now admitted for monitoring, diagnostic evaluation of aforementioned chest pain for ACS rule out. Chest pain/dizziness/elevated troponin -11/07 left-sided chest pain on initial presentation. Now pain-free no analgesia given. No dizziness. Bradycardic to the high 40s-50s (appears to be her baseline). Otherwise, VSS. -Mildly elevated hs-troponin 14.2 (initial troponin normal-9.5). Nonspecific (subtle) T wave changes on EKG. -[place] with [facility] ([facility]). Appears to be doing well, per last visit note. Most recent echo 11/02/2023: EF = 65-70%, normal LV, normal LV systolic function, mod. LVH. -HEART score = 6 (EKG, age, 3+ risk factors, mildly elevated troponin). Admission recommended. * Admit to [facility] telemetry * Repeat hs-troponin pending trend * Continue home aspirin 81 mg * Continue home Crestor, Toprol, Eliquis * Review a.m. CBC, BMP, Mg * TTE, lipid profile, TSH, HgbA1c pending. CAD -Follows with [facility] ([facility]). -Current regimen: Aspirin 81 mg daily, Toprol 100 mg daily, rosuvastatin 10 mg daily * Continue home regimen HTN -Current regimen HCTZ 12.5 mg daily. * Continue home HCTZ HLD -Current regimen rosuvastatin 10 mg daily. * Continue home Crestor * Lipid profile pending LV Mural Thrombus -Follows with [facility] ([facility]). Thrombus visible, unchanged on the last echocardiogram. -Current regimen: Eliquis 5 mg twice daily, Toprol 100 mg daily. * Continue home Eliquis, Toprol Osteopenia * Continue home vitamin D Vitamin B12 Deficiency * Continue home cyanocobalamin 2500 mcg SL daily Code: Full code Dispo: Med-Surg telemetry FEN/GI: Heart healthy DVT Prophylaxis: Home Eliquis 5 mg twice daily PT/OT: No Consults: None Case Management: No (2) Dizziness: (3) Elevated troponin: (4) CAD (coronary artery disease): (5) Hypertension: (6) Hypercholesterolemia: (7) LV (left ventricular) mural thrombus: (8) Osteopenia: (9) Vitamin B12 deficiency: History of Present Illness Primary Care Provider: Dodie Mares MD Michelle is a 83-year-old woman with a past medical history of coronary artery disease, hypertension, hypercholesterolemia, osteoarthritis, osteopenia, and left ventricular mural thrombus who presented to the emergency room with a complaint of chest pain and dizziness since approximately 5 PM. She reports the pain, which she localizes to her left, started innocuously but gradually worsened over the next hour. She contacted her daughter, who advised her to drink some water and sit outside. Daughter soon arrived to take her mother to her own home. However, her pain continued to worsen at her daughter's, and so daughter decided to bring her in. ROS + radiation to left shoulder blades. Otherwise, she denies shortness of breath, dyspnea on exertion, nausea, abdominal pain, headache, or fatigue. Chest pain did not occur postprandially she was not hungry so she'd eaten nothing all day. In the ED, vitals were notable for bradycardia in the 50s, which appears to be her baseline. Lab workup was notable for a mild elevation in troponin on 2-hour recheck (14.2, up from 9.5). Otherwise, electrolytes, WBC, platelets, LFTs were all mostly normal/within normal range. EKG noted some nonspecific T wave changes, but was NSR. CTA chest was negative for pulmonary embolism, pneumothorax, or pleural effusion, though did note severe coronary calcification involving left main, LAD, circumflex, and RCA. Head CT was negative for acute changes. She received an NS bolus x 500 mL hospitalist service was then consulted for admission. On admission, patient reports feeling much better, and would like to go home. Otherwise she has no acute complaints. Allergies Allergy/AdvReac Type Severity Reaction Status Date / Time Penicillins Allergy Severe SHORT OF Verified 03/04/24 02:57 BREATH atorvastatin AdvReac Unknown DAUGHTER Verified 03/04/24 02:57 DID NOT KNOW REACTION pravastatin AdvReac Unknown DAUGHTER Verified 03/04/24 02:57 DID NOT KNOW REACTION simvastatin AdvReac Unknown DAUGHTER Verified 03/04/24 02:57 DID NOT KNOW REACTION Home Medications Medication Instructions Recorded Confirmed Type cyanocobalamin (vitamin B-12) 2,500 mcg sublingual DAILY 11/01/19 03/04/24 History 2,500 mcg sublingual tablet aspirin 81 mg tablet,delayed 81 mg PO DAILY 11/17/20 03/04/24 History release (Adult Low Dose Aspirin) cholecalciferol (vitamin D3) 50 50 mcg PO DAILY #90 caps 03/23/21 03/04/24 Rx mcg (2,000 unit) capsule apixaban 5 mg tablet (Eliquis) 5 mg PO Q12H #180 tabs 09/07/23 03/04/24 Rx hydrochlorothiazide 12.5 mg tablet 12.5 mg PO DAILY #90 tabs 09/07/23 03/04/24 Rx metoprolol succinate 100 mg 100 mg PO DAILY #90 tabs 09/07/23 03/04/24 Rx tablet,extended release 24 hr rosuvastatin 10 mg tablet 10 mg PO DAILY #90 tabs 09/07/23 03/04/24 Rx Past Med/Surg History Problem List (Updated 03/04/24 @ 02:27 by Yanet Greene MD) SOB (shortness of breath) (Acute) Acute electrocardiogram changes (Acute) Elevated troponin (Acute) Dizziness (Acute) H/O: CVA (cerebrovascular accident) Urinary incontinence TSH elevation Nodule of upper lobe of right lung Palpitations Vitamin D deficiency disease Cognitive and behavioral changes CAD (coronary artery disease) LV (left ventricular) mural thrombus EKG abnormalities Gait disturbance Polyarthritis of multiple sites Health care maintenance Constipation (Acute) Esophageal reflux (Acute) Fatty liver (Acute) Hearing loss (Acute) Hypercholesterolemia (Acute) Low back pain (Acute) Osteopenia (Acute) Hemorrhoids (Acute) Prediabetes (Acute) Vitamin B12 deficiency (Acute) Hypertension (Acute) Medical History SOBOE (shortness of breath on exertion) Chest pain Arthritis of shoulder region, right Polyarthropathy, inflammatory Pre-hypertension Hypertension Pyelonephritis UTI (urinary tract infection) High cholesterol Shoulder contusion Surgical History S/P thoracotomy History of colonoscopy Family History Mother Hypercholesteremia Denies family history of Ovarian cancer Prostate cancer Myocardial infarction Breast cancer Colorectal cancer Social History Smoking Status: Never smoker Second Hand Exposure: Yes; Do You Dip or Chew Tobacco: No; Hx Alcohol Use: No Hx Substance Use: No Preferred Language: New Zealander Communication Ability: Effective Account Processor Required: Yes Beliefs That Will Affect Care: None marital status: / Current Living Situation: Family current occupational status: retired Feels Safe at Home: Yes Safety Concerns: Feels Safe At This Time Childhood Exposure to Second-Hand Smoke: No Dental Care, Regularly: No Physical Activity Frequency: 3-4 Times per Week Seatbelt Use: always Sunscreen Use: No Assistive Devices: None Review of Systems Review of Systems: All systems reviewed & are unremarkable except as noted in HPI & below Physical Exam Physical Exam: General: No acute distress HEENT: PERRLA. Normal conjunctiva, anicteric sclera. Oropharynx normal. Respiratory: Normal respiratory effort, CTABL. Cardiovascular: Bradycardic. No murmurs, gallops, or rubs. No pedal edema. GI: Soft abdomen with normal bowel sounds heard on auscultation. Nontender x4 quadrants Neuro: Alert and oriented x3. Results & Data Results & Data Vital Signs (Past 12 Hours) Vital Signs Temp Pulse Pulse Resp BP BP Pulse Ox 03/04/24 01:01 49 L 18 140/69 97 03/03/24 23:00 135/77 03/03/24 23:00 54 L 21 96 03/03/24 22:51 57 L 19 96 03/03/24 22:21 55 L 22 94 03/03/24 22:12 54 L 19 94 03/03/24 22:10 56 L 23 126/71 94 03/03/24 22:10 03/03/24 21:51 57 L 22 94 03/03/24 21:00 55 L 26 H 94 03/03/24 21:00 123/70 03/03/24 21:00 123/70 03/03/24 21:00 123/70 03/03/24 20:51 56 L 22 94 03/03/24 20:42 56 L 24 94 03/03/24 20:37 56 L 03/03/24 19:51 03/03/24 19:51 03/03/24 19:46 36.3 C L 61 16 134/73 93 O2 Del Method 03/04/24 01:01 Room Air 03/03/24 23:00 03/03/24 23:00 03/03/24 22:51 03/03/24 22:21 03/03/24 22:12 03/03/24 22:10 Room Air 03/03/24 22:10 Room Air 03/03/24 21:51 03/03/24 21:00 03/03/24 21:00 03/03/24 21:00 03/03/24 21:00 03/03/24 20:51 03/03/24 20:42 03/03/24 20:37 03/03/24 19:51 Room Air 03/03/24 19:51 Room Air 03/03/24 19:46 Room Air Supervising Physician Co-Signing Physician Notes Patient seen and examined, chart reviewed, case discussed with Dr. Greene and I agree with the assessment and plan as above Patient with history of HTN, HLP presenting with acute onset of chest pain with radiation into the shoulder Exam unremarkable Chest pain free at present New Ze[place]ander speaking Labs and images reviewed - troponin has increased from 9.5 --> 14.2 Assessment/Plan Chest pain, rule out acute PR. Patient's risk factors include age, HTN, HLP. Troponin has increased on serial repeat. Mild changes to EKG - no STEMI Presently chest pain free -Telemetry monitoring -Trend troponin -Check 2D echo -Initiate ASA for now -Remainder as above Resident Activity Tracking Resident Involvement: Resident Care Provided Care Provided: Adult Hospital Medicine (1) Chest pain Chest pain type: unspecified Qualified Code(s): R07.9 - Chest pain, unspecified (4) CAD (coronary artery disease) Associated angina: without angina Coronary Disease-Associated Artery/Lesion type: [place] artery [place] vs. transplanted heart: [place] heart Qualified Code(s): I25.10 - Atherosclerotic heart disease of [place] coronary artery without angina pectoris (5) Hypertension Hypertension type: unspecified Qualified Code(s): I10 - Essential (primary) hypertension (8) Osteopenia Osteopenia location: unspecified Qualified Code(s): M85.80 - Other specified disorders of bone density and structure, unspecified site
--- NOTE | 2024-03-04 01:40 | Emergency Department Note ---
History of Present Illness General Chief complaint: Tachycardia Stated complaint: DIZZY, TACHYCARDIA Time Seen by Provider: 03/03/24 21:17 Source: patient, family, RN notes reviewed and old records reviewed (10/09/23- outpatient cardiology note) Mode of arrival: ambulatory Limitations: language barrier (Her daughter acted as welding machine operator as per her request) History of Present Illness This patient is an 83-year-old female who had an episode where she felt dizzy and her heart was going too fast she felt. This happened about 4 hours ago there is no chest pain or syncope. No fever or cough no focal numbness or weakness she now has a mild headache she did feel somewhat short of breath with that. She also had a similar episode 2 or 3 weeks ago. She does have a history of an LV thrombus and palpitations she is followed by cardiology. She is on a blood thinner with apixaban Home Medications Medication Instructions Recorded Confirmed Type cyanocobalamin (vitamin B-12) 2,500 mcg sublingual DAILY 11/01/19 01/18/24 History 2,500 mcg sublingual tablet aspirin 81 mg tablet,delayed 81 mg PO DAILY 11/17/20 01/18/24 History release (Adult Low Dose Aspirin) cholecalciferol (vitamin D3) 50 50 mcg PO DAILY #90 caps 03/23/21 01/18/24 Rx mcg (2,000 unit) capsule apixaban 5 mg tablet (Eliquis) 5 mg PO Q12H #180 tabs 09/07/23 01/18/24 Rx hydrochlorothiazide 12.5 mg tablet 12.5 mg PO DAILY #90 tabs 09/07/23 01/18/24 Rx metoprolol succinate 100 mg 100 mg PO DAILY #90 tabs 09/07/23 01/18/24 Rx tablet,extended release 24 hr rosuvastatin 10 mg tablet 10 mg PO DAILY #90 tabs 09/07/23 01/18/24 Rx Allergies Allergy/AdvReac Type Severity Reaction Status Date / Time Penicillins Allergy Severe SHORT OF Verified 01/18/24 13:12 BREATH atorvastatin AdvReac Unknown DAUGHTER Verified 01/12/24 17:27 DID NOT KNOW REACTION pravastatin AdvReac Unknown DAUGHTER Verified 01/12/24 17:27 DID NOT KNOW REACTION simvastatin AdvReac Unknown DAUGHTER Verified 01/12/24 17:27 DID NOT KNOW REACTION Past Med/Surg History Problem List (Updated 03/04/24 @ 01:47 by Josue Lawrence MD) SOB (shortness of breath) (Acute) Acute electrocardiogram changes (Acute) Elevated troponin (Acute) Dizziness (Acute) H/O: CVA (cerebrovascular accident) Urinary incontinence TSH elevation Nodule of upper lobe of right lung Palpitations Vitamin D deficiency disease Cognitive and behavioral changes CAD (coronary artery disease) LV (left ventricular) mural thrombus EKG abnormalities Gait disturbance Polyarthritis of multiple sites Health care maintenance Constipation (Acute) Esophageal reflux (Acute) Fatty liver (Acute) Hearing loss (Acute) Hypercholesterolemia (Acute) Low back pain (Acute) Osteopenia (Acute) Hemorrhoids (Acute) Prediabetes (Acute) Vitamin B12 deficiency (Acute) Hypertension (Acute) Medical History SOBOE (shortness of breath on exertion) Chest pain Arthritis of shoulder region, right Polyarthropathy, inflammatory Pre-hypertension Hypertension Pyelonephritis UTI (urinary tract infection) High cholesterol Shoulder contusion Surgical History S/P thoracotomy History of colonoscopy Family History Mother Hypercholesteremia Denies family history of Ovarian cancer Prostate cancer Myocardial infarction Breast cancer Colorectal cancer Social History Smoking Status: Never smoker Second Hand Exposure: Yes; Do You Dip or Chew Tobacco: No; Hx Alcohol Use: No Hx Substance Use: No Preferred Language: Italian Communication Ability: THAI Turkey Pinner Required: Yes Beliefs That Will Affect Care: Orthodox Orthodox Beliefs: THAI YAZDANISM marital status: / Current Living Situation: Family current occupational status: retired Feels Safe at Home: Yes Childhood Exposure to Second-Hand Smoke: No Dental Care, Regularly: No Physical Activity Frequency: 3-4 Times per Week Seatbelt Use: always Sunscreen Use: No Assistive Devices: None Review of Systems A total of 10 systems reviewed and were otherwise negative Physical Exam Vital Signs Vital Signs - 24 hr 03/03/24 19:46 03/03/24 19:51 03/03/24 19:51 Temperature 36.3 C L Temperature Source Temporal Artery Scan Pulse Rate 61 Pulse Rate [Apical] Pulse Rate from SpO2 Sensor Respiratory Rate 16 Respiratory Effort / Characteristics Respiratory Depth Blood Pressure 134/73 Blood Pressure [Right Arm] Blood Pressure Mean 93 Blood Pressure Mean [Right Arm] Pulse Oximetry 93 Oxygen Delivery Method Room Air Room Air Room Air Sepsis Recent Fever Within 48 Hours No Sepsis New/Unexplained Change in Mental Status No Sepsis Action Taken by Nursing No Action Required 03/03/24 20:37 03/03/24 20:42 03/03/24 20:51 Temperature Temperature Source Pulse Rate 56 L 56 L 56 L Pulse Rate [Apical] Pulse Rate from SpO2 Sensor 56 L 56 L Respiratory Rate 24 22 Respiratory Effort / Characteristics Respiratory Depth Blood Pressure Blood Pressure [Right Arm] Blood Pressure Mean Blood Pressure Mean [Right Arm] Pulse Oximetry 94 94 Oxygen Delivery Method Sepsis Recent Fever Within 48 Hours Sepsis New/Unexplained Change in Mental Status Sepsis Action Taken by Nursing 03/03/24 21:00 03/03/24 21:00 03/03/24 21:00 Temperature Temperature Source Pulse Rate Pulse Rate [Apical] Pulse Rate from SpO2 Sensor Respiratory Rate Respiratory Effort / Characteristics Respiratory Depth Blood Pressure 123/70 123/70 123/70 Blood Pressure [Right Arm] Blood Pressure Mean 99 99 99 Blood Pressure Mean [Right Arm] Pulse Oximetry Oxygen Delivery Method Sepsis Recent Fever Within 48 Hours Sepsis New/Unexplained Change in Mental Status Sepsis Action Taken by Nursing 03/03/24 21:00 03/03/24 21:51 03/03/24 22:10 Temperature Temperature Source Pulse Rate 55 L 57 L Pulse Rate [Apical] Pulse Rate from SpO2 Sensor 54 L 57 L Respiratory Rate 26 H 22 Respiratory Effort / Characteristics Respiratory Depth Blood Pressure Blood Pressure [Right Arm] Blood Pressure Mean Blood Pressure Mean [Right Arm] Pulse Oximetry 94 94 Oxygen Delivery Method Room Air Sepsis Recent Fever Within 48 Hours Sepsis New/Unexplained Change in Mental Status Sepsis Action Taken by Nursing 03/03/24 22:10 03/03/24 22:12 03/03/24 22:21 Temperature Temperature Source Pulse Rate 54 L 55 L Pulse Rate [Apical] 56 L Pulse Rate from SpO2 Sensor 54 L 56 L Respiratory Rate 23 19 22 Respiratory Effort / Characteristics Respiratory Depth Blood Pressure Blood Pressure [Right Arm] 126/71 Blood Pressure Mean Blood Pressure Mean [Right Arm] 89 Pulse Oximetry 94 94 94 Oxygen Delivery Method Room Air Sepsis Recent Fever Within 48 Hours Sepsis New/Unexplained Change in Mental Status Sepsis Action Taken by Nursing 03/03/24 22:51 03/03/24 23:00 03/03/24 23:00 Temperature Temperature Source Pulse Rate 57 L 54 L Pulse Rate [Apical] Pulse Rate from SpO2 Sensor 54 L 54 L Respiratory Rate 19 21 Respiratory Effort / Characteristics Respiratory Depth Blood Pressure 135/77 Blood Pressure [Right Arm] Blood Pressure Mean 109 Blood Pressure Mean [Right Arm] Pulse Oximetry 96 96 Oxygen Delivery Method Sepsis Recent Fever Within 48 Hours Sepsis New/Unexplained Change in Mental Status Sepsis Action Taken by Nursing 03/04/24 01:01 Temperature Temperature Source Pulse Rate Pulse Rate [Apical] 49 L Pulse Rate from SpO2 Sensor Respiratory Rate 18 Respiratory Effort / Characteristics Non-Labored Spontaneous Respiratory Depth Normal Blood Pressure Blood Pressure [Right Arm] 140/69 Blood Pressure Mean Blood Pressure Mean [Right Arm] 92 Pulse Oximetry 97 Oxygen Delivery Method Room Air Sepsis Recent Fever Within 48 Hours Sepsis New/Unexplained Change in Mental Status Sepsis Action Taken by Nursing General: Well developed well nourished [id number] older female who appears in no acute distress, breathing comfortably on room air. Normal speech HEENT: Normal cephalic atraumatic. Pupils are equal round and reactive to light. Extraocular movements are intact. Oropharynx is pink with moist mucous membranes. No swelling of the mouth lips or tongue. Neck: Supple with a midline trachea. No meningeal signs or stiffness, no JVD or bruits. No Stridor. Chest: Clear to auscultation bilaterally. No wheezes or rhonchi. No increased work of breathing. Heart: Regular rate and rhythm without murmurs or gallops. Abdomen: Soft nontender, nondistended without rebound guarding or rigidity. Extremities: No cyanosis clubbing or edema. No calf tenderness or assymetry Spine/Back. Non tender to palpation. No CVA tenderness Skin: Good turgor without rashes. Neurologic exam: Cranial nerves two through 12 are intact. Motor and sensation are intact and symmetrical throughout. No tremor. Finger-nose intact. Course Administered Medications Discontinued Medications Sodium Chloride (Nss) 500 mls @ 999 mls/hr IV .Q31M ONE Stop: 03/03/24 22:13 Last Infusion: 03/03/24 23:05 Dose: Infused Documented By: Admin: 03/03/24 22:10 Dose: 999 mls/hr Documented By: PATY Ioversol (Optiray 320 125ml) 116 ml IV ONCE ONE Stop: 03/03/24 22:35 Last Admin: 03/03/24 22:34 Dose: 116 ml Documented By: CORINNA Medical Decision Making Differential Diagnosis Arrhythmia, acute coronary syndrome, PE, electrolyte or metabolic abnormality, anemia, infection, neurologic disease Medical Records Attestation: I reviewed the patient's medical records. Home Medications Current Medication List: was personally reviewed by me Laboratory Data Attestation: I reviewed the patient's lab results. 03/03/24 20:00 03/03/24 20:00 Lab Results 03/03/24 03/03/24 Range/Units 20:00 22:58 WBC 9.31 (4.8-10.8) K/ul RBC 4.28 (4.20-5.40) M/uL Hgb 14.2 (12.0-16.0) g/dl Hct 42.1 (37.0-47.0) % MCV 98.4 (80.0-100.0) fL MCH 33.2 (25.0-34.0) pg MCHC 33.7 (32.0-36.0) g/dL RDW Std Deviation 45.8 (36.4-46.3) fL RDW Coeff of Maria De Jesus 12.8 (11.5-14.5) % Plt Count 199 (130-400) K/uL MPV 11.1 (9.4-12.4) fL Immature Gran % (Auto) 0.2 % Neut % (Auto) 55.4 % Lymph % (Auto) 34.4 % Hawkins % (Auto) 7.6 % Eos % (Auto) 2.0 % Baso % (Auto) 0.4 % Neut # (Auto) 5.15 (1.40-6.50) K/uL Lymph # (Auto) 3.20 (1.20-3.40) K/uL Hawkins # (Auto) 0.71 H (0.11-0.59) K/uL Eos # (Auto) 0.19 (0.00-0.50) K/uL Baso # (Auto) 0.04 (0.00-0.20) K/uL Immature Gran # (Auto) 0.02 (0.01-0.20) K/uL PT 10.8 (9.0-12.0) Seconds INR 1.0 (0.9-1.1) APTT 27 (21-31) Seconds PTT Ratio 1.0 Sodium 137 (136-145) mmol/L Potassium 4.0 (3.5-5.1) mmol/L Chloride 104 (98-107) mmol/L Carbon Dioxide 23 (21-32) mmol/L Anion Gap 10 (3-11) BUN 25 H (6-23) mg/dl Creatinine 1.06 (0.6-1.2) mg/dl Est Cr Clr Drug Dosing 41.7 ml/min Est GFR ( Amer) 56.2 ml/min Est GFR (Non-Af Amer) 48.5 ml/min BUN/Creatinine Ratio 23.6 H (10-20) Glucose 104 H (70-99(Fasting)) mg/dl Calcium 9.6 (8.6-10.3) mg/dl Total Bilirubin 0.6 (0.2-1.0) mg/dl AST 16 (13-39) U/L ALT 12 (7-52) U/L Alkaline Phosphatase 54 (34-104) U/L Troponin I High Sens 9.5 14.2 H D (0-14) pg/ml Total Protein 7.4 (6.0-8.3) gm/dl Albumin 4.4 (3.4-5.0) gm/dl Globulin 3.0 (2.5-4.0) gm/dl Albumin/Globulin Ratio 1.5 (0.9-2) Imaging Data Attestation: I personally reviewed and interpreted this imaging study as follows: My Impression: Head CTI do not see any hemorrhage or mass effect Radiologist's Impression: Chest CTA 03/03/24 21:42 Exam(s): CTA CHEST IV Amt: 116 ml optiray 320 EXAM: CT Angiography Chest With Intravenous Contrast CLINICAL HISTORY: Reason for exam: PE. TECHNIQUE: Axial computed tomographic angiography images of the chest with intravenous contrast. CTDI is 49.51 mGy and DLP is 813.96 mGy-cm. Automated exposure control was utilized for the study. A dose lowering technique was utilized adhering to the principles of ALARA. MIP reconstructed images were created and reviewed. COMPARISON: No relevant prior studies available. FINDINGS: Pulmonary arteries: The pulmonary arterial tree is well opacified with contrast. No pulmonary embolism is identified. Aorta: The aorta is mildly calcified but nondilated. There is no aneurysm or dissection. Lungs: Lungs are well-inflated. There are scattered linear scarring and/or subsegmental atelectasis in both lung bases. No acute appearing infiltrate, pneumothorax, or pleural effusion is seen. No mass. Pleural space: See above. Heart: The heart is borderline enlarged. Severe coronary calcification is present involving the left main, LAD, circumflex, and right coronary arteries. No significant pericardial effusion. Bones/joints: Mild multilevel degenerative change are seen throughout the spine. No acute fracture or destructive bone lesion is seen. There are several old healed right rib fractures. No dislocation. Soft tissues: Unremarkable. Lymph nodes: Unremarkable. No enlarged lymph nodes. IMPRESSION: 1. Lungs are well-inflated. There are scattered linear scarring and/or subsegmental atelectasis in both lung bases. No acute appearing infiltrate, pneumothorax, or pleural effusion is seen. 2. The pulmonary arterial tree is well opacified with contrast. No pulmonary embolism is identified. 3. The aorta is mildly calcified but nondilated. There is no aneurysm or dissection. 4. The heart is borderline enlarged. Severe coronary calcification is present involving the left main, LAD, circumflex, and right coronary arteries. Electronically signed by: Santana Rayo MD 03/04/24 00:[address] 03/03/24 21:42 Exam(s): CT HEAD Without Contrast EXAM: CT Head Without Intravenous Contrast CLINICAL HISTORY: Reason for exam: dizziness. TECHNIQUE: Axial computed tomography images of the head/brain without intravenous contrast. CTDI is 35.65 mGy and DLP is 546.36 mGy-cm. Automated exposure control was utilized for the study. A dose lowering technique was utilized adhering to the principles of ALARA. COMPARISON: January 12, 2024 FINDINGS: Brain: Mild diffuse cerebral atrophy and periventricular white matter low density consistent with chronic small vessel disease and/or senescent changes, unchanged. No acute large vessel infarct or intracranial hemorrhage is seen. Ventricles: Mildly dilated. No mass or hemorrhage. Bones/joints: Unremarkable. No acute fracture. Soft tissues: Unremarkable. Sinuses: Unremarkable as visualized. No acute sinusitis. Mastoid air cells: Unremarkable as visualized. No mastoid effusion. IMPRESSION: Mild diffuse cerebral atrophy and periventricular white matter low density consistent with chronic small vessel disease and/or senescent changes, unchanged. No acute large vessel infarct or intracranial hemorrhage is seen. Electronically signed by: Santana Rayo MD 03/04/24 00:33 AM ECG Data Attestation: I personally reviewed and interpreted this ECG as follows: Indication: + palpitations and + SOB/dyspnea Rate (beats per minute): 61 Rhythm: + normal sinus ECG Intervals/blocks: + Incomplete right bundle branch block ECG [place]: + Left axis deviation ECG ST segments: + Normal ST segments ECG Findings: + Other (Nonspecific T wave abnormalities/biphasic T waves laterally); no PACs or no PVCs Comparison ECG Date: from (01/12/24) Change: no significant change Additional Comments: EKG #2: Sinus bradycardia with a rate of 50. First-degree AV block. The T wave inversions seem more pronounced laterally and also now inferiorly MDM Narrative This patient comes in described above she had episode where he felt like she had a fast heart rate and felt dizzy and short of breath. She has stable vital signs right now and is nontachycardic. She is asymptomatic at present a significant workup was obtained. Looking back through her chart she had a recent CT angiography of the head and neck for dizziness. I did a CAT scan of her head given the fact that she is on anticoagulation it was negative. EKG shows no definite change compared to old on the first 1 however on her second EKG it looks different than the first there is more pronounced T wave inversions her troponin is mildly trending upward as well based on these I do think she needs to be admitted/observed for CAT scan shows no evidence of PE. The patient did not want to stay and says she felt fine and wanted to go home but I talked to the patient and her daughter at length and convinced her that she needs a significant cardiac workup before she can go home. She acknowledges this and did ultimately agree to be admitted. I have consulted the [facility] hospitalist to see the patient in the ER for these measures Continuous cardiac monitoring: Orders placed in EMR for continuous cardiac monitoring: Pulm evaluation patient noted to be in sinus bradycardia rate of 60 Impression & Plan Dizziness, Elevated troponin, Acute electrocardiogram changes, SOB (shortness of breath) Discharge Plan Visit Data Chief Complaint: Tachycardia Stated Complaint: DIZZY, TACHYCARDIA ED Provider: Josue Lawrence Discharge Problem: Dizziness, Elevated troponin, Acute electrocardiogram changes, SOB (shortness of breath) Forms Stand Alone Forms: My [facility] Prescriptions Prescriptions: No Action cholecalciferol (vitamin D3) 50 mcg (2,000 unit) capsule 50 mcg PO DAILY Qty: 90 3RF Rx Instructions: with heaviest meal of the day Eliquis 5 mg tablet 5 mg PO Q12H Qty: 180 3RF hydrochlorothiazide 12.5 mg tablet 12.5 mg PO DAILY Qty: 90 3RF metoprolol succinate 100 mg tablet extended release 24 hr 100 mg PO DAILY Qty: 90 3RF rosuvastatin 10 mg tablet 10 mg PO DAILY Qty: 90 3RF aspirin [Adult Low Dose Aspirin] 81 mg tablet,delayed release (DR/EC) 81 mg PO DAILY cyanocobalamin (vitamin B-12) 2,500 mcg tablet, sublingual 2,500 mcg SL DAILY Referrals Referrals: Dodie Mares MD [Primary Care Provider] -
[2024-03-04] MEDS ORDERED: MELATONIN 3 MG TAB PO PRN (01:42)
--- NOTE | 2024-03-04 05:22 | Billing Data ---
Date of Service March 04, 2024 Coding Level of Care Code 82847 INT INP/OBS CARE
--- NOTE | 2024-03-04 07:29 | Electrocardiogram Report ---
Test Reason : Blood Pressure : / mmHG Vent. Rate : 061 BPM Atrial Rate : 061 BPM P-R Int : 196 ms QRS Dur : 096 ms QT Int : 438 ms P-R-T Axes : 043 -20 042 degrees QTc Int : 440 ms Normal sinus rhythm Incomplete right bundle branch block Moderate voltage criteria for LVH, may be normal variant Nonspecific T wave abnormality Abnormal ECG When compared with ECG of 12-JAN-2024 11:57, Nonspecific T wave abnormality now evident in Anterior leads Confirmed by Dragan Love ([id number]) on 03/04/2024 7:29:16 AM Referred By: REFERRED SELF Confirmed By:Toni Love
--- NOTE | 2024-03-04 07:30 | Electrocardiogram Report ---
Test Reason : Blood Pressure : / mmHG Vent. Rate : 050 BPM Atrial Rate : 050 BPM P-R Int : 234 ms QRS Dur : 108 ms QT Int : 532 ms P-R-T Axes : 056 -11 -52 degrees QTc Int : 485 ms Sinus bradycardia with 1st degree A-V block Moderate voltage criteria for LVH, may be normal variant T wave abnormality, consider inferior ischemia T wave abnormality, consider anterolateral ischemia Prolonged QT Abnormal ECG When compared with ECG of 03-MAR-2024 19:53, (unconfirmed) RI interval has increased T wave inversion now evident in Inferior leads Inverted T waves have replaced nonspecific T wave abnormality in Lateral leads Confirmed by Dragan Love ([id number]) on 03/04/2024 7:30:17 AM Referred By: REFERRED SELF Confirmed By:Toni Love
--- NOTE | 2024-03-04 08:03 | XRay Report ---
SINGLE VIEW CHEST CLINICAL HISTORY: Atypical chest pain FINDINGS: 2 AP, portable, upright chest radiographs are compared to study dated 01/12/2024 and correla [place] with chest CT dated 10/26/2023. Suture material projects over the right apex. The heart is enlarge d noting atherosclerotic calcification of the thoracic aorta. The pulmonary vasculature is noncongest ed. Chronic interstitial thickening is similar to previous. There is bibasilar scarring/atelectasis. No airspace consolidation or large pleural effusion is identified. No pneumothorax is seen. The skele julianne structures are osteopenic. The there is chronic deformity of the right-sided ribs. IMPRESSION: Cardiomegaly with no active disease in the chest. ACT 112: Negative or not required by law. Electronically signed by: Kirit Pablo M.D. 03/04/2024 8:02 AM
[2024-03-04] MEDS: METOPROLOL SUCC 50MG EXT REL TAB PO SCH (08:38)
[2024-03-04] MEDS: ROSUVASTATIN CALCIUM 10 MG TAB PO SCH (09:19)
[2024-03-04] MEDS: CHOLECALCIFEROL 25 MCG (1000 UNITS) TAB PO SCH (09:20)
[2024-03-04] MEDS: CYANOCOBALAMIN (B-12) 2,500 MCG TABLET SL SCH (09:20)
[2024-03-04] MEDS: APIXABAN 5 MG TABLET PO SCH (09:20)
[2024-03-04] MEDS: ASPIRIN 81 MG ECTAB PO SCH (09:20)
[2024-03-04] MEDS: hydroCHLOROthiazide 25 MG TAB PO SCH (09:20)
--- NOTE | 2024-03-04 10:01 | XCELERA ---
[id number]
[2024-03-04 10:13] LABS: Calcium 9.5 mg/dl (8.6-10.3); Potassium 4.3 mmol/L (3.5-5.1)
[2024-03-04 10:17] LABS: Estimated Average Glucose 134 mg/dl; Hemoglobin A1C 6.3 % (4.5-5.6)
[2024-03-04 10:20] LABS: BUN Creatinine Ratio 19.6 (10-20); Chol HDL Ratio 4.1 (0-5); Creatinine Clr Calc Pharmacy 45.6 ml/min; Est GFR (African American) 62.6 ml/min
[2024-03-04 10:24] LABS: Troponin I High Sensitivity 11.8 pg/ml (0-14)
[2024-03-04 10:33] LABS: Thyroid Stimulating Hormone 3.34 uIu/ml (0.300-4.500)
--- NOTE | 2024-03-04 11:13 | Hospitalist Progress Note ---
Date of Service March 04, 2024 Assessment & Plan (1) Chest pain: Plan: 83 F with PMH CAD, LV mural thrombus, HTN, HLD, osteopenia, who presented to ER with persistent L chest pain and dizziness now admitted for monitoring, diagnostic evaluation of aforementioned chest pain for ACS rule out. Chest pain/dizziness/elevated troponin -11/07 left-sided chest pain on initial presentation. Now pain-free no analgesia given. No dizziness. Bradycardic to the high 40s-50s (appears to be her baseline). Otherwise, VSS. -Mildly elevated hs-troponin 14.2 (initial troponin normal-9.5). Nonspecific (subtle) T wave changes on EKG. -[place] [facility] ([facility] Appears to be doing well, per last visit note. Most recent echo 11/02/2023: EF = 65-70%, normal LV, normal LV systolic function, mod. LVH. -HEART score = 6 (EKG, age, 3+ risk factors, mildly elevated troponin). Admission recommended. * Admit to [facility] telemetry * Repeat hs-troponin pending trend * Continue home aspirin 81 mg * Continue home Crestor, Toprol, Eliquis * Review a.m. CBC, BMP, Mg * TTE, lipid profile, TSH, HgbA1c pending. CAD -Follows with [facility]iology ([facility]). -Current regimen: Aspirin 81 mg daily, Toprol 100 mg daily, rosuvastatin 10 mg daily * Continue home regimen HTN -Current regimen HCTZ 12.5 mg daily. * Continue home HCTZ HLD -Current regimen rosuvastatin 10 mg daily. * Continue home Crestor * Lipid profile pending LV Mural Thrombus -Follows with [facility] ([facility]). Thrombus visible, unchanged on the last echocardiogram. -Current regimen: Eliquis 5 mg twice daily, Toprol 100 mg daily. * Continue home Eliquis, Toprol Osteopenia * Continue home vitamin D Vitamin B12 Deficiency * Continue home cyanocobalamin 2500 mcg SL daily Code: Full code Dispo: Med-Surg telemetry FEN/GI: Heart healthy DVT Prophylaxis: Home Eliquis 5 mg twice daily PT/OT: No Consults: None Case Management: No (2) Dizziness: (3) Elevated troponin: (4) CAD (coronary artery disease): (5) Hypertension: (6) Hypercholesterolemia: (7) LV (left ventricular) mural thrombus: (8) Osteopenia: (9) Vitamin B12 deficiency: Admission and Anticipated Discharge Date Admission Date: March 04, 2024 Results & Data Results & Data Vital Signs (Past 12 Hours) Vital Signs Temp Pulse Pulse Resp BP BP Pulse Ox 03/04/24 09:17 49 L 24 92 03/04/24 08:15 91 03/04/24 08:00 111/54 L 03/04/24 07:57 90 03/04/24 07:24 93 03/04/24 07:00 118/63 03/04/24 06:00 55 L 16 110/60 95 03/04/24 04:28 50 L 03/04/24 03:15 03/04/24 03:00 48 L 25 H 140/68 96 03/04/24 02:43 36.4 C L 54 L 16 137/65 98 03/04/24 02:42 57 L 18 95 03/04/24 02:33 50 L 21 97 03/04/24 01:54 46 L 23 96 03/04/24 01:42 49 L 15 97 03/04/24 01:30 49 L 22 96 03/04/24 01:21 46 L 21 95 03/04/24 01:12 47 L 25 H 96 03/04/24 01:04 140/69 03/04/24 01:04 140/69 03/04/24 01:01 49 L 18 140/69 97 Pulse Ox O2 Del Method O2 Del Method 03/04/24 09:17 03/04/24 08:15 03/04/24 08:00 03/04/24 07:57 03/04/24 07:24 03/04/24 07:00 03/04/24 06:00 Room Air 03/04/24 04:28 03/04/24 03:15 98 Room Air 03/04/24 03:00 Room Air 03/04/24 02:43 Room Air 03/04/24 02:42 03/04/24 02:33 03/04/24 01:54 03/04/24 01:42 03/04/24 01:30 03/04/24 01:21 03/04/24 01:12 03/04/24 01:04 03/04/24 01:04 03/04/24 01:01 Room Air (1) Chest pain Chest pain type: unspecified Qualified Code(s): R07.9 - Chest pain, unspecified (4) CAD (coronary artery disease) Coronary Disease-Associated Artery/Lesion type: [place] artery [place] vs. transplanted heart: [place] heart Associated angina: without angina Qualified Code(s): I25.10 - Atherosclerotic heart disease of [place] coronary artery without angina pectoris (5) Hypertension Hypertension type: unspecified Qualified Code(s): I10 - Essential (primary) hypertension (8) Osteopenia Osteopenia location: unspecified Qualified Code(s): M85.80 - Other specified disorders of bone density and structure, unspecified site
[2024-03-04 15:36] VITALS: RESP 20; TEMP 98.1; O2SAT 95
--- NOTE | 2024-03-04 16:09 | Discharge Summary ---
Date of Service March 04, 2024 Admission HPI Per Admitting Provider Michelle is a 83-year-old woman with a past medical history of coronary artery disease, hypertension, hypercholesterolemia, osteoarthritis, osteopenia, and left ventricular mural thrombus who presented to the emergency room with a complaint of chest pain and dizziness since approximately 5 PM. She reports the pain, which she localizes to her left, started innocuously but gradually worsened over the next hour. She contacted her daughter, who advised her to drink some water and sit outside. Daughter soon arrived to take her mother to her own home. However, her pain continued to worsen at her daughter's, and so vesta laboy decided to bring her in. ROS + radiation to left shoulder blades. Otherwise, she denies shortness of breath, dyspnea on exertion, nausea, abdominal pain, headache, or fatigue. Chest pain did not occur postprandially she was not hungry so she'd eaten nothing all day. In the ED, vitals were notable for bradycardia in the 50s, which appears to be her baseline. Lab workup was notable for a mild elevation in troponin on 2-hour recheck (14.2, up from 9.5). Otherwise, electrolytes, WBC, platelets, LFTs were all mostly normal/within normal range. EKG noted some nonspecific T wave goodman ges, but was NSR. CTA chest was negative for pulmonary embolism, pneumothorax, or pleural effusion, though did note severe coronary calcification involving left main, LAD, circumflex, and RCA. Head CT was negative for acute changes. She received an NS bolus x 500 mL hospitalist service was then consulted for admission. On admission, patient reports feeling much better, and would like to go home. Otherwise she has no acute complaints. Principal Diagnosis Chest Pain Discharge Exam Constitutional: well-appearing, no acute distress HEENT: NCAT, no conjunctival injection CV: regular rhythm, no murmur appreciated, extremities well-perfused, no LE edema Resp: CTABL, no wheezes/rales/rhonchi appreciated, no increased work of breathing MSK: no gross deformities appreciated Skin: warm, dry, no rash appreciated Neuro: alert, oriented, no focal neurologic deficit appreciated Discharge Data Allergies Allergy/AdvReac Type Severity Reaction Status Date / Time Penicillins Allergy Severe SHORT OF Verified 03/04/24 02:57 BREATH atorvastatin AdvReac Unknown DAUGHTER Verified 08/05/24 02:57 DID NOT KNOW REACTION pravastatin AdvReac Unknown DAUGHTER Verified 03/04/24 02:57 DID NOT KNOW REACTION simvastatin AdvReac Unknown DAUGHTER Verified 03/04/24 02:57 DID NOT KNOW REACTION Consultations 03/04/24 00:46 ED Decision to Admit Stat 03/04/24 11:19 Consult Cardiology Routine Ordered Studies 03/03/24 21:42 CT angio chest PE protocol Stat CT head/brain wo con Stat Hospital Course (1) Chest pain: 83 F with PMH CAD, LV mural thrombus, HTN, HLD, osteopenia, who presented to ER with persistent L chest pain and dizziness now admitted for monitoring, diagnostic evaluation of aforementioned chest pain for ACS rule out. Chest pain/dizziness/elevated troponin -11/07 left-sided chest pain on initial presentation. Now pain-free no analgesia given. No dizziness. Bradycardic to the high 40s-50s (appears to be her baseline). Otherwise, VSS. -Mildly elevated hs-troponin peaked at 14.2 Nonspecific (subtle) T wave changes on EKG. -[place] [facility] [place] [place] Cardiology was consulted and felt chest pain without cardiac etiology - Most recent echo 11/02/2023: EF = 65-70%, normal LV, normal LV systolic function, mod. LVH.- repeat 03/04 largely unchanged * Continue home aspirin 81 mg * Continue home Crestor, Toprol, Eliquis * Pain is reproducible, left breast. Consider breast US/mammogram as an OP CAD -Follows with [facility] ([facility] [place]). -Current regimen: Aspirin 81 mg daily, Toprol 100 mg daily, rosuvastatin 10 mg daily * Continue home regimen HTN -Current regimen HCTZ 12.5 mg daily. * Continue home HCTZ HLD -Current regimen rosuvastatin 10 mg daily. * Continue home Crestor * Lipid profile pending LV Mural Thrombus -Follows with [facility] ([facility] [place]). Thrombus visible, unchan ged on the last echocardiogram. -Current regimen: Eliquis 5 mg twice daily, Toprol 100 mg daily. * Continue home Eliquis, Toprol Osteopenia * Continue home vitamin D Vitamin B12 Deficiency * Continue home cyanocobalamin 2500 mcg SL daily (2) Dizziness: (3) Elevated troponin: (4) CAD (coronary artery disease): (5) Hypertension: (6) Hypercholesterolemia: (7) LV (left ventricular) mural thrombus: (8) Osteopenia: (9) Vitamin B12 deficiency: Total Time Total Time Spent Total Time Spent (In Minutes): 65 min Total Time Includes: Examination of the Patient, Discharge Planning, Communication With Other Providers and Other Discharge Plan Discharge Items Patient Disposition: Home - Self-Care Reason For Visit: CHEST PAIN Discharge Diagnosis: Chest Pain Activity: Per Instructions section Non-emergency contact: Primary Care Provider and Android Developer Call non-emergency contact if: you have any medication questions, your pain is worsening and your pain is unusual for you Follow-up/Referrals: Dodie Mares MD [Primary Care Provider] - 03/20/24 10:00 am (Will see SHALINI Martínez in Dr Mares's office) Diet: Regular Addtl Attending Provider Instructions: You were admitted with concern for chest pain. All of your testing points to a none cardiac cause for your pain and cardiology saw you and felt that your pain was not cardiogenic. 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 You should consider getting a mammogram/breast ultrasound for your left sided pain. If you symptoms return or worsen you should come back to the ED for re-evaluation. We did not make any changes to your medications. Pending Studies at Discharge: No Stand-Alone Forms: My [facility], Smoking Cessation Medications and DC Order Prescriptions: Continued cholecalciferol (vitamin D3) 50 mcg (2,000 unit) capsule 50 mcg PO DAILY Qty: 90 3RF Rx Instructions: with heaviest meal of the day Eliquis 5 mg tablet 5 mg PO Q12H Qty: 180 3RF Rx Instructions: Filled 12/21/23 for 90 day supply hydrochlorothiazide 12.5 mg tablet 12.5 mg PO DAILY Qty: 90 3RF metoprolol succinate 100 mg tablet extended release 24 hr 100 mg PO DAILY Qty: 90 3RF rosuvastatin 10 mg tablet 10 mg PO DAILY Qty: 90 3RF aspirin [Adult Low Dose Aspirin] 81 mg tablet,delayed release (DR/EC) 81 mg PO DAILY cyanocobalamin (vitamin B-12) 2,500 mcg tablet, sublingual 2,500 mcg SL DAILY Discharge Orders: Discharge Order (Routine); Ordered 03/04/24 Ordered By: Kate Burnette Admission Data Admit Date/Time: 03/04/24 01:07 Attending Provider: Shima Izaguirre Admit Provider: Yanet Greene Primary Care Provider: Dodie Mares V. Other Providers: Yanira Rayo; Dragan Love Other Interventions: Discharge Summary Assessment (RN) Last Done: 03/04/24 16:19 Supervising Physician Co-Signing Physician Notes I personally examined the patient and verified navarro points of history and exam, discussed case, and agree with decision making and plan documented by Dr. Burnette. [place] interpretation by [facility] with Mira in ED today. Also discussed case with patient's daughter Nia when she arrived. Patient is an 83-year-old woman presenting with chest pain and dizziness. Patient evaluated by cardiology inpatient for concerns of chest pain and ECG abnormalities, cardiac workup unremarkable, echo shows stability compared to last study, and patient will follow-up outpatient with [facility] cardiology for next steps. Patient had a CTA that was negative for PE which showed severe coronary calcifications. On exam today, patient appears comfortable, lungs clear b/l to auscultation, regular rate and rhythm, no acute distress. Patient had reproducible left-sided breast and axillary pain, no appreciable masses, however point tenderness on lateral aspect of left breast and medial aspect (at about 3:00 and 9:00). Recommended breast ultrasound follow-up for left breast tenderness. Patient understanding will discuss this with her PCP at follow-up. Resident Activity Tracking Resident Involvement: Resident Care Provided Care Provided: Adult Hospital Medicine
[2024-03-04 16:21] VITALS: BP 110/60; PULSE 55
--- NOTE | 2024-03-04 16:30 | Cardiology Consultation ---
Date of Consultation March 04, 2024 Assessment & Plan (1) CAD (coronary artery disease): (2) LV (left ventricular) mural thrombus: (3) Palpitations: (4) EKG abnormalities: Plan 1. Palpitations: Despite a report of palpitations and a tingling of her heart, no abnormality was seen on telemetry during symptoms. 2. Coronary disease: Presumed. Dense coronary calcifications on CT exam. However prior perfusion imaging did not demonstrate evidence of ischemia or infarct. Continue aggressive secondary prevention with apixaban, aspirin and rosuvastatin 3. Left ventricular thrombus: Longstanding in nature. Unclear etiology. She will continue systemic anticoagulation 4. Abnormal EKG: She while she does have T-wave inversions on occasion, these have been seen previously. The finding itself is fairly nonspecific. Do not think this requires additional evaluation. 5. Chest pressure: She does describe a sense of chest pressure at times. This can be exertional in nature. However, does not appear to be limiting. This could be an anginal equivalent. However, she is very sedentary. I do not think this is interfering with her lifestyle. With progressive symptoms additional medical therapy could be entertained. History of Present Illness Reason for Consultation: Palpitations, chest pain, dizziness Requesting Physician: Evon Attending Physician: Shima Izaguirre DO History of Present Illness The patient is an 83-year-old woman with a history of presumed coronary disease and left ventricular thrombus who presented to the hospital for symptoms of dizziness and palpitations. The patient only speaks Chilean. Today's visit was facilitated through a proprietary interpretation service. Her daughter was also present for the interview and provided some supplemental history. According to the patient and the daughter she is very sedentary. The patient generally spends most of her time in bed. This seems to be by choice. She likes to read and relax. Generally once a day the daughter who visit the patient and they will go on a brief walk. Patient states that on her walk she will occasionally have some chest pressure and need to rest briefly. She did not report limiting dyspnea. She reports an element of unsteadiness which improves with support from her daughter. Generally speaking she does not have dizziness or lightheadedness. Yesterday she did have symptoms of dizziness that she did not describe as presyncopal. This was also associated with a sensation that her heart was tickling. She did not describe this as chest pain. She was brought to the emergency room the symptoms appeared to resolve. She states she has been up around the emergency room today without symptoms of dizziness. She did have some continued sense of palpitation or juggling in her heart subsequent to admission. Allergies Allergy/AdvReac Type Severity Reaction Status Date / Time Penicillins Allergy Severe SHORT OF Verified 03/04/24 02:57 BREATH atorvastatin AdvReac Unknown DAUGHTER Verified 03/04/24 02:57 DID NOT KNOW REACTION pravastatin AdvReac Unknown DAUGHTER Verified 03/04/24 02:57 DID NOT KNOW REACTION simvastatin AdvReac Unknown DAUGHTER Verified 03/04/24 02:57 DID NOT KNOW REACTION Home Medications Medication Instructions Recorded Confirmed Type cyanocobalamin (vitamin B-12) 2,500 mcg sublingual DAILY 11/01/19 03/04/24 History 2,500 mcg sublingual tablet aspirin 81 mg tablet,delayed 81 mg PO DAILY 11/17/20 03/04/24 History release (Adult Low Dose Aspirin) cholecalciferol (vitamin D3) 50 50 mcg PO DAILY #90 caps 03/23/21 03/04/24 Rx mcg (2,000 unit) capsule apixaban 5 mg tablet (Eliquis) 5 mg PO Q12H #180 tabs 09/07/23 03/04/24 Rx hydrochlorothiazide 12.5 mg tablet 12.5 mg PO DAILY #90 tabs 09/07/23 03/04/24 Rx metoprolol succinate 100 mg 100 mg PO DAILY #90 tabs 09/07/23 03/04/24 Rx tablet,extended release 24 hr rosuvastatin 10 mg tablet 10 mg PO DAILY #90 tabs 09/07/23 03/04/24 Rx Patient History Medical History SOBOE (shortness of breath on exertion) Chest pain Arthritis of shoulder region, right Polyarthropathy, inflammatory Pre-hypertension Hypertension Pyelonephritis UTI (urinary tract infection) High cholesterol Shoulder contusion Surgical History S/P thoracotomy History of colonoscopy Family History Mother Hypercholesteremia Denies family history of Ovarian cancer Prostate cancer Myocardial infarction Breast cancer Colorectal cancer Social History Smoking Status: Never smoker Second Hand Exposure: Yes; Do You Dip or Chew Tobacco: No; Hx Alcohol Use: No Hx Substance Use: No Preferred Language: [place]an Communication Ability: Effective Communication Tools: IPad and Physical Gestures Blog Writer Required: Yes Beliefs That Will Affect Care: None marital status: / Current Living Situation: Family current occupational status: retired Feels Safe at Home: Yes Childhood Exposure to Second-Hand Smoke: No Dental Care, Regularly: No Physical Activity Frequency: 3-4 Times per Week Seatbelt Use: always Sunscreen Use: No Assistive Devices: None Review of Systems Review of Systems: Per HPI. Some symptoms of chest pressure which can occur randomly. Generally speaking he is very brief. Occasional symptoms of palpitation which are also brief. No abdominal pain. Physical Exam Physical Exam: She is alert and oriented x3. Mood affect appear normal. She answered all questions appropriately. HEENT: Sclerae are anicteric. Pupils are equal and reactive to light and accommodation. Extraocular movements were intact. Neuro: Cranial nerves intact Lungs: Lungs are clear to auscultation bilaterally. There are no rales wheezes or rhonchi. She has normal respiratory effort without use of accessory muscles. There is normal pulmonary excursion. Cardiac: The rhythm was regular. S1 and S2 were normal. There are no murmurs on examination. The PMI was not markedly displaced on palpation. Abdomen: The abdomen was soft and nontender. Extremities: Patient has bilateral radial pulses that are equal in intensity. There is no evidence cyanosis or clubbing. There was no evidence of significant peripheral edema bilaterally. Skin: There are no rashes noted on examination today. Results & Data Vital Signs (Past 12 Hours) Vital Signs Temp Pulse Pulse Pulse Resp BP BP 03/04/24 15:35 36.7 C 61 20 128/69 03/04/24 13:00 57 L 26 H 95/65 L 03/04/24 12:15 56 L 24 03/04/24 11:02 49 L 22 03/04/24 10:02 47 L 22 03/04/24 09:17 49 L 24 03/04/24 08:15 03/04/24 08:00 03/04/24 08:00 111/54 L 03/04/24 07:57 08/05/24 07:24 03/04/24 07:00 118/63 03/04/24 06:00 55 L 16 03/04/24 04:28 50 L BP Pulse Ox O2 Del Method 03/04/24 15:35 95 Room Air 03/04/24 13:00 97 03/04/24 12:15 03/04/24 11:02 94 03/04/24 10:02 03/04/24 09:17 92 03/04/24 08:15 91 03/04/24 08:00 Room Air 03/04/24 08:00 03/04/24 07:57 90 03/04/24 07:24 93 03/04/24 07:00 03/04/24 06:00 110/60 95 Room Air 03/04/24 04:28 Laboratory Results Abnormal Lab Results 03/03/24 03/03/24 03/04/24 20:00 22:58 09:29 WBC 9.31 RBC 4.28 Hgb 14.2 Hct 42.1 MCV 98.4 MCH 33.2 MCHC 33.7 RDW Std Deviation 45.8 RDW Coeff of Maria De Jesus 12.8 Plt Count 199 MPV 11.1 Immature Gran % (Auto) 0.2 Neut % (Auto) 55.4 Lymph % (Auto) 34.4 [place] % (Auto) 7.6 Eos % (Auto) 2.0 Baso % (Auto) 0.4 Neut # (Auto) 5.15 Lymph # (Auto) 3.20 [place] # (Auto) 0.71 H Eos # (Auto) 0.19 Baso # (Auto) 0.04 Immature Gran # (Auto) 0.02 PT 10.8 INR 1.0 APTT 27 PTT Ratio 1.0 Sodium 137 138 Potassium 4.0 4.3 Chloride 104 107 Carbon Dioxide 23 24 Anion Gap 10 7 BUN 25 H 19 Creatinine 1.06 0.97 Est Cr Clr Drug Dosing 41.7 45.6 Est GFR ( Amer) 56.2 62.6 Est GFR (Non-Af Amer) 48.5 54.0 BUN/Creatinine Ratio 23.6 H 19.6 Glucose 104 H 123 H Estimat Average Glucose 134 Hemoglobin A1c 6.3 H Calcium 9.6 9.5 Total Bilirubin 0.6 AST 16 ALT 12 Alkaline Phosphatase 54 Troponin I High Sens 9.5 14.2 H D 11.8 Total Protein 7.4 Albumin 4.4 Globulin 3.0 Albumin/Globulin Ratio 1.5 Triglycerides 206 H Cholesterol 199 LDL Cholesterol, Calc 110 VLDL Cholesterol, Calc 41 H HDL Cholesterol 48 Cholesterol/HDL Ratio 4.1 TSH 3.340 Diagnostic Findings Chest CTA demonstrated dense cardiac calcification, but no other acute abnormality. No PE. Chest x-ray demonstrated cardiomegaly without acute cardiopulmonary findings. Head CT did not demonstrate any acute findings Echocardiogram dated 03/04/2024: Normal LV systolic function with moderate LVH. Moderate size apical thrombus. Aortic valve sclerosis without stenosis. Unchanged from prior exam ECG Additional Comments: EKG demonstrated normal sinus rhythm with diffuse T-wave inversions in the anterior precordial leads PG Care Time/CCT Total # of Minutes Spent Total Time Spent with Patient: Total time spent is greater than 50% in coordination of care (as documented) at patient's floor/unit and/or counseling patient: Coding Level of Care Code 05909 INT INP/OBS CARE 375MIN Diagnoses Coronary artery disease involving [place] coronary artery of [place] heart without angina pectoris I25.10 Coronary Disease-Associated Artery/Lesion type: [place] artery [place] vs. transplanted heart: [place] heart Associated angina: without angina LV (left ventricular) mural thrombus I51.3 Palpitations R00.2 EKG abnormalities R94.31 (1) CAD (coronary artery disease) Coronary Disease-Associated Artery/Lesion type: [place] artery [place] vs. transplanted heart: [place] heart Associated angina: without angina Qualified Code(s): I25.10 - Atherosclerotic heart disease of [place] coronary artery without angina pectoris
== END 2024-03-04 16:37 | disposition home or self-care (01) | DRG 303 ==
LOC: ED 19:42 → EDINP 03-04 01:07 → INTOOBSV 03-04 01:07 → SUATTDRO 03-04 01:07 → 2N 03-04 02:19

== ENCOUNTER 2025-07-10 11:18 | Inpatient (IN) ==
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
[2025-07-10] MEDS: OPTIRAY 320 100ml IV ONE (11:58)
[2025-07-10] MEDS: ACETAMINOPHEN 1,000 MG/100 ML VIAL IV STA (12:03)
[2025-07-10 12:09] LABS: Hematocrit (blood only) 39.7 % (37.0-47.0); Hemoglobin 13.8 g/dL (12.0-16.0); Immature Granulocytes # (auto) 0.01 K/uL (0.01-0.20); Immature Granulocytes % (auto) 0.2 %; Mean Corpuscular Hemoglobin 33.2 pg (25.0-34.0); Mean Corpuscular Volume 95.4 fL (80.0-100.0); Platelet Count 171 K/uL (130-400); RDW Standard Deviation 44.4 fL (36.4-46.3); Red Blood Count 4.16 M/uL (4.20-5.40); White Blood Count 6.60 K/ul (4.8-10.8)
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
--- NOTE | 2025-07-10 12:22 | Emergency Department Note ---
Impression & Plan Fall, Low back pain, COVID-19, Generalized weakness, Ambulatory dysfunction, Acute UTI (urinary tract infection), Elevated troponin ED Provider Note HISTORY OF PRESENT ILLNESS: Patient is a 85-year-old female presenting as a prehospital trauma activation. Per EMS report, the patient had an unwitnessed ground-level fall. On arrival to the emergency department, a formal [place] csm consultant was utilized as the patient does not speak [place]. Via the [place] csm consultant a different history was obtained. Patient reports that she slipped out of bed. She is complaining of low back pain. She is not sure if she hit her head. She states that she thinks she is on a blood thinner but cannot remember the name. Patient denies any chest pain or shortness of breath. Eyes any numbness or tingling or weakness in her extremities. daughter also reported to bedside and provided further history. Reports the patient was not feeling well over the last 1 to 2 days and developed a cough yesterday. No reported fevers. No recent sick contact exposures. ROS: as above PHYSICAL EXAM: Primary Survey Airway: Intact Breathing: Normal, breath sounds equal bilaterally Circulation: Skin warm, distal pulses 2+, capillary refill less than 2 seconds Disability Pupils: Equal and reactive to light, 3 mm, brisk GCS: 15, E = 4, V=5, M= 6 Motor Function: Moves all extremities. Sensory: No deficits Secondary Survey GEN: Well developed and well-nourished HENT: Head: No external signs of trauma. Mouth/Throat: Midface stable. No malocclusion. Eyes: EOMI. Pupils are 3 mm, round and reactive bilaterally. Nose: No nasal septal hematoma. No gross deformity. Neck: No midline C-spine tenderness. No step-offs. Cardiovascular: RRR. Pulses present in all 4 extremities. Pulmonary/Chest: BS equal bilaterally. No tenderness or ecchymosis. Abdomen: No tenderness or ecchymosis. Musculoskeletal: Pelvis: No instability. Patient is able to straight leg raise bilaterally. Back: No midline tenderness. No step-offs or deformities. Extremities: No gross deformities. No TTP. Skin: No laceration. No abrasion. Neuro: No focal neurological deficits. GCS as above. Psych: Normal mood and affect. MDM: - Vitals signs showed tachypnea - History obtained via patient via [place] csm consultant. History as above. - ABCs intact on arrival. IV access obtained. CT imaging ordered. - Chronic conditions affecting care: HTN; HLD; CAD - Differential diagnoses include, but are not limited to: Intracranial hemorrhage; compression fracture; UTI; viral syndrome; pneumonia pneumothorax; - Order placed for continuous cardiac monitoring. At this time, monitor showed rate of 57 bpm with normal sinus rhythm, per my interpretation. - External medical records reviewed. Primary care visit note dated 04/27/2025 was reviewed. Patient was seen for a regular scheduled follow-up appointment for her chronic medical problems. Basic blood work and a chest x-ray were ordered at that visit. - EKG image interpreted by myself showed normal sinus rhythm. Rate 65 bpm. QT 426. No acute ischemic changes. - Laboratory workup interpreted by myself showed normal WBC; normal PT/INR; normal lactic acid; stable electrolytes; slightly elevated troponin (17.2); normal AST/ALT; normal lipase - CXR image reviewed interpreted by myself is negative for pneumothorax, per my interpretation. - Xray of the pelvis negative for fracture or dislocation. - Patient given 1g IV tylenol in ER for back pain - CT head wo contrast negative for acute intracranial pathology. - CT cervical spine wo contrast negative for acute traumatic injury. - CT chest with IV contrast negative acute traumatic injury. Noted to have extensive coronary artery calcifications. - CT abdomen/pelvis with IV contrast negative for acute traumatic injury. Noted to have bladder wall thickening concerning for potential cystitis. - COVID positive - UA showed evidence of infection. Patient given 2 g IV Rocephin. - Patient attempted to ambulate to the bedside commode with nursing staff, but required significant assistance because she was so unsteady on her feet. Concerned about the patient's safety going home alone at this point. Discussed results with the patient and her daughter at bedside via the [place] csm consultant. Daughter agrees that the patient is not safe to go home as she does live home alone. They were both in agreement to admission to the hospital for PT/OT assessment. Will discuss admission with the hospitalist service for ambulatory dysfunction. Her weakness and ambulatory dysfunction may be secondary to her COVID infection. - Discussion was had with residential case manager about patient's case and need for admission - Hospitalist consulted for admission - Patient admitted to [facility] hospitalist service for further evaluation and management. ASSESSMENT AND PLAN: Diagnosis: Fall; low back pain; COVID-19 infection; generalized weakness; ambulatory dysfunction; acute UTI; elevated troponin Plan: Admit Past Med/Surg History Problem List (Updated 07/10/25 @ 13:44 by Vanita Jewell MD) Elevated troponin (Acute) Acute UTI (urinary tract infection) (Acute) Ambulatory dysfunction (Acute) Generalized weakness (Acute) COVID-19 (Acute) Low back pain (Acute) Fall (Acute) Cough H/O: CVA (cerebrovascular accident) Urinary incontinence Nodule of upper lobe of right lung Palpitations Vitamin D deficiency disease Cognitive and behavioral changes CAD (coronary artery disease) LV (left ventricular) mural thrombus EKG abnormalities Gait disturbance Polyarthritis of multiple sites Health care maintenance Constipation (Acute) Esophageal reflux (Acute) Fatty liver (Acute) Hearing loss (Acute) Hypercholesterolemia (Acute) Low back pain (Acute) Osteopenia (Acute) Hemorrhoids (Acute) Prediabetes (Acute) Vitamin B12 deficiency (Acute) Hypertension (Acute) Medical History (Updated 07/10/25 @ 13:44 by Vanita Jewell MD) Pain of left breast Acute electrocardiogram changes TSH elevation SOB (shortness of breath) Elevated troponin Dizziness SOBOE (shortness of breath on exertion) Arthritis of shoulder region, right Polyarthropathy, inflammatory Pre-hypertension Hypertension Pyelonephritis UTI (urinary tract infection) High cholesterol Shoulder contusion Surgical History S/P thoracotomy History of colonoscopy Family History Mother Hypercholesteremia Denies family history of Ovarian cancer Prostate cancer Myocardial infarction Breast cancer Colorectal cancer Social History Smoking Status: Never smoker Second Hand Exposure: Yes; Do You Dip or Chew Tobacco: No; Hx Alcohol Use: No Hx Substance Use: No Preferred Language: [place] Communication Ability: Effective Communication Tools: IPad [place] Edger Required: Yes Beliefs That Will Affect Care: Cheondoism Cheondoism Beliefs: [place] Spiritism Yarsani marital status: / Current Living Situation: Family current occupational status: retired Feels Safe at Home: Yes Childhood Exposure to Second-Hand Smoke: No Dental Care, Regularly: No Physical Activity Frequency: 3-4 Times per Week Seatbelt Use: always Sunscreen Use: No Assistive Devices: None Allergies Allergies Allergy/AdvReac Type Severity Reaction Status Date / Time Penicillins Allergy Severe SHORT OF Verified 01/21/25 09:02 BREATH atorvastatin AdvReac Unknown DAUGHTER Verified 01/21/25 09:02 DID NOT KNOW REACTION pravastatin AdvReac Unknown DAUGHTER Verified 01/21/25 09:02 DID NOT KNOW REACTION simvastatin AdvReac Unknown DAUGHTER Verified 01/21/25 09:02 DID NOT KNOW REACTION Home Meds Home Medications Medication Instructions Recorded Confirmed cyanocobalamin (vitamin B-12) 2,500 mcg sublingual DAILY 11/01/19 04/28/25 2,500 mcg sublingual tablet aspirin 81 mg tablet,delayed 81 mg PO DAILY 11/17/20 04/28/25 release (Adult Low Dose Aspirin) Previous Rx's Medication Instructions Recorded cholecalciferol (vitamin D3) 50 50 mcg PO DAILY #90 caps 03/23/21 mcg (2,000 unit) capsule apixaban 5 mg tablet (Eliquis) 5 mg PO Q12H #180 tabs 01/21/25 hydrochlorothiazide 25 mg tablet 25 mg PO DAILY #90 tabs 01/21/25 metoprolol succinate 100 mg 150 mg (1.5 x 100 mg) PO DAILY 01/21/25 tablet,extended release 24 hr #135 tabs rosuvastatin 10 mg tablet 10 mg PO DAILY #90 tabs 01/21/25 diaper,brief,adult,disposable #60 ea 02/13/25 miscellaneous medical supply 4 ea miscellaneous .COMPLEX #4 ea 02/13/25 Results & Data (ED) Vital Signs Vital Signs - 24 hr 07/10/25 11:33 07/10/25 11:33 07/10/25 11:33 Temperature 37.3 C 37.3 C 37.3 C Temperature Source Oral Oral Pulse Rate 66 66 Pulse Rate [Apical] 66 Pulse Rhythm [Apical] Pulse Strength [Apical] Respiratory Rate 22 22 22 Respiratory Effort / Characteristics Respiratory Depth Respiratory Pattern Blood Pressure 126/73 126/73 Blood Pressure [Left Arm] 126/73 Blood Pressure Mean 90 Blood Pressure Mean [Left Arm] 90 Blood Pressure Position [Left Arm] Pulse Oximetry 96 96 96 Oxygen Delivery Method Room Air Room Air Room Air Oxygen Flow Rate 0 Sepsis Recent Fever Within 48 Hours No Sepsis New/Unexplained Change in Mental Status N/A Sepsis Action Taken by Nursing No Action Required 07/10/25 11:33 07/10/25 11:33 07/10/25 12:04 Temperature 37.3 C Temperature Source Oral Pulse Rate 60 Pulse Rate [Apical] 66 Pulse Rhythm [Apical] Pulse Strength [Apical] Respiratory Rate 22 26 H Respiratory Effort / Characteristics Respiratory Depth Respiratory Pattern Blood Pressure Blood Pressure [Left Arm] 126/73 Blood Pressure Mean Blood Pressure Mean [Left Arm] 90 Blood Pressure Position [Left Arm] Pulse Oximetry 96 96 92 Oxygen Delivery Method Room Air Room Air Room Air Oxygen Flow Rate Sepsis Recent Fever Within 48 Hours Sepsis New/Unexplained Change in Mental Status Sepsis Action Taken by Nursing 07/10/25 12:36 07/10/25 13:00 Temperature Temperature Source Pulse Rate Pulse Rate [Apical] 60 57 L Pulse Rhythm [Apical] Regular Regular Pulse Strength [Apical] Normal Normal Respiratory Rate 26 H 19 Respiratory Effort / Characteristics Non-Labored Spontaneous Non-Labored Spontaneous Respiratory Depth Normal Normal Respiratory Pattern Regular Regular Blood Pressure Blood Pressure [Left Arm] 115/59 L 114/65 Blood Pressure Mean Blood Pressure Mean [Left Arm] 77 81 Blood Pressure Position [Left Arm] Lying Lying Pulse Oximetry 90 92 Oxygen Delivery Method Room Air Room Air Oxygen Flow Rate Sepsis Recent Fever Within 48 Hours Sepsis New/Unexplained Change in Mental Status Sepsis Action Taken by Nursing Laboratory Data 07/10/25 11:40 07/10/25 11:40 Lab Results 07/10/25 07/10/25 07/10/25 Range/Units 11:30 11:39 11:40 WBC 6.60 (4.8-10.8) K/ul RBC 4.16 L (4.20-5.40) M/uL Hgb 13.8 (12.0-16.0) g/dL POC Hgb 13.3 (12.0-16.0) g/dl Hct 39.7 (37.0-47.0) % POC Hct 39 (37-47) % MCV 95.4 (80.0-100.0) fL MCH 33.2 (25.0-34.0) pg MCHC 34.8 (32.0-36.0) g/dL RDW Std Deviation 44.4 (36.4-46.3) fL RDW Coeff of Maria De Jesus 12.7 (11.5-14.5) % Plt Count 171 (130-400) K/uL MPV 10.7 (9.4-12.4) fL Immature Gran % (Auto) 0.2 % Neut % (Auto) 59.6 % Lymph % (Auto) 26.2 % Starr % (Auto) 13.2 % Eos % (Auto) 0.3 % Baso % (Auto) 0.5 % Neut # (Auto) 3.94 (1.40-6.50) K/uL Lymph # (Auto) 1.73 (1.20-3.40) K/uL Starr # (Auto) 0.87 H (0.11-0.59) K/uL Eos # (Auto) 0.02 (0.00-0.50) K/uL Baso # (Auto) 0.03 (0.00-0.20) K/uL Immature Gran # (Auto) 0.01 (0.01-0.20) K/uL PT 11.5 (9.0-12.0) Seconds INR 1.1 (0.9-1.1) APTT 29 (21-31) Seconds PTT Ratio 1.1 POC Sodium 137 (135-144) mmol/L Sodium 137 (136-145) mmol/L POC Potassium 3.9 (3.3-5.0) mmol/L Potassium 4.0 (3.5-5.1) mmol/L POC Chloride 97 L (101-112) mmol/L Chloride 98 (98-107) mmol/L Carbon Dioxide 31 (21-32) mmol/L POC Total CO2 27 (24-31) mmol/L Anion Gap 8 (3-11) POC Anion Gap 17.0 (16-25) mmol/L POC BUN 25 H (7-18) mg/dl BUN 23 (6-23) mg/dl Creatinine 1.19 (0.6-1.2) mg/dl POC Creatinine 1.4 H (0.6-1.3) mg/dl Est Cr Clr Drug Dosing 37.1 ml/min eGFR 44.81 BUN/Creatinine Ratio 19.3 (10-20) Glucose 132 H (70-99(Fasting)) mg/dl POC Glucose (other) 131 H (70-99) mg/dl Lactate (0.4-2.0) mmol/L Calcium 9.3 (8.6-10.3) mg/dl POC Ioniz Calcium Jaime 1.13 (1.12-1.32) mmol/l Total Bilirubin 0.7 (0.2-1.0) mg/dl AST 22 (13-39) U/L ALT 12 (7-52) U/L Alkaline Phosphatase 53 (34-104) U/L Troponin I High Sens 17.2 H (0-14) pg/ml Total Protein 7.4 (6.0-8.3) gm/dl Albumin 4.1 (3.4-5.0) gm/dl Globulin 3.3 (2.5-4.0) gm/dl Albumin/Globulin Ratio 1.2 (0.9-2) Lipase 26 (11-82) U/L Urine Color Urine Appearance (Clear) Urine pH (4.5-7.5) Ur Specific [place] (1.000-1.030) Urine Protein (Negative) Urine Glucose (UA) (Negative) Urine Ketones (Negative) Urine Blood (Negative) Urine Nitrite (Negative) Urine Bilirubin (Negative) Urine Urobilinogen (Negative) Ur Leukocyte Esterase (Negative) Urine WBC (Auto) (0-5) /hpf Urine RBC (Auto) (0-2) /hpf U Hyaline Cast (Auto) (0-2) /lpf U Epithel Cells (Auto) (0-2) /hpf Urine Bacteria (Auto) (None Seen) Urine Comment SARS-CoV-2 (PCR) POSITIVE A (Negative) Influenza Type A (PCR) Negative (Neg) Influenza Type B (PCR) Negative (Neg) RSV (RT-PCR) Negative (Neg) 07/10/25 07/10/25 Range/Units 12:30 13:07 WBC (4.8-10.8) K/ul RBC (4.20-5.40) M/uL Hgb (12.0-16.0) g/dL POC Hgb (12.0-16.0) g/dl Hct (37.0-47.0) % POC Hct (37-47) % MCV (80.0-100.0) fL MCH (25.0-34.0) pg MCHC (32.0-36.0) g/dL RDW Std Deviation (36.4-46.3) fL RDW Coeff of Maria De Jesus (11.5-14.5) % Plt Count (130-400) K/uL MPV (9.4-12.4) fL Immature Gran % (Auto) % Neut % (Auto) % Lymph % (Auto) % Starr % (Auto) % Eos % (Auto) % Baso % (Auto) % Neut # (Auto) (1.40-6.50) K/uL Lymph # (Auto) (1.20-3.40) K/uL Starr # (Auto) (0.11-0.59) K/uL Eos # (Auto) (0.00-0.50) K/uL Baso # (Auto) (0.00-0.20) K/uL Immature Gran # (Auto) (0.01-0.20) K/uL PT (9.0-12.0) Seconds INR (0.9-1.1) APTT (21-31) Seconds PTT Ratio POC Sodium (135-144) mmol/L Sodium (136-145) mmol/L POC Potassium (3.3-5.0) mmol/L Potassium (3.5-5.1) mmol/L POC Chloride (101-112) mmol/L Chloride (98-107) mmol/L Carbon Dioxide (21-32) mmol/L POC Total CO2 (24-31) mmol/L Anion Gap (3-11) POC Anion Gap (16-25) mmol/L POC BUN (7-18) mg/dl BUN (6-23) mg/dl Creatinine (0.6-1.2) mg/dl POC Creatinine (0.6-1.3) mg/dl Est Cr Clr Drug Dosing ml/min eGFR BUN/Creatinine Ratio (10-20) Glucose (70-99(Fasting)) mg/dl POC Glucose (other) (70-99) mg/dl Lactate 1.7 (0.4-2.0) mmol/L Calcium (8.6-10.3) mg/dl POC Ioniz Calcium Jaime (1.12-1.32) mmol/l Total Bilirubin (0.2-1.0) mg/dl AST (13-39) U/L ALT (7-52) U/L Alkaline Phosphatase (34-104) U/L Troponin I High Sens (0-14) pg/ml Total Protein (6.0-8.3) gm/dl Albumin (3.4-5.0) gm/dl Globulin (2.5-4.0) gm/dl Albumin/Globulin Ratio (0.9-2) Lipase (11-82) U/L Urine Color Yellow Urine Appearance Cloudy A (Clear) Urine pH 5.5 (4.5-7.5) Ur Specific [place] > 1.045 H (1.000-1.030) Urine Protein Trace H (Negative) Urine Glucose (UA) Negative (Negative) Urine Ketones Negative (Negative) Urine Blood 1+ H (Negative) Urine Nitrite Positive A (Negative) Urine Bilirubin Negative (Negative) Urine Urobilinogen Negative (Negative) Ur Leukocyte Esterase 2+ H (Negative) Urine WBC (Auto) >50 H (0-5) /hpf Urine RBC (Auto) 11-20 H (0-2) /hpf U Hyaline Cast (Auto) 6-10 H (0-2) /lpf U Epithel Cells (Auto) 0-2 (0-2) /hpf Urine Bacteria (Auto) 4+ H (None Seen) Urine Comment SARS-CoV-2 (PCR) (Negative) Influenza Type A (PCR) (Neg) Influenza Type B (PCR) (Neg) RSV (RT-PCR) (Neg) Administered Medications Discontinued Medications Acetaminophen (Ofirmev) 1,000 mg in 100 mls @ 400 mls/hr IV NOW STA Stop: 07/10/25 11:43 Last Infusion: 07/10/25 12:29 Dose: Infused Documented By: Admin: 07/10/25 12:03 Dose: 400 mls/hr Documented By: TEZ Ioversol (Optiray 320 100ml) 93 ml IV ONCE ONE Stop: 07/10/25 11:59 Last Admin: 07/10/25 11:58 Dose: 93 ml Documented By: LEXII Imaging Data Radiologist's Impression: Abdomen/Pelvis CT 07/10/25 11:30 CT SCAN OF THE ABDOMEN AND PELVIS WITH IV CONTRAST CLINICAL HISTORY: Fall. COMPARISON STUDY: Pelvis CT April 24, 2024. CT of the abdomen and pelvis June 08, 2019. TECHNIQUE: Following the IV administration of 93 cc of Optiray 320, CT scan of the abdomen and pelvis is performed from the lung bases to the proximal femora. Images are reviewed in the axial, sagittal, and coronal planes. IV contrast was administered without complication. A dose lowering technique was utilized adhering to the principles of ALARA. FINDINGS: Please note that the chest CT will be reported separately. There is no hemoperitoneum or pneumoperitoneum. No evidence for traumatic injury to the liver, spleen, adrenal glands, kidneys or pancreas. A 2.1 cm right renal cyst is present. There are bilateral renal parapelvic cysts. No bowel wall thickening. There is a moderate amount of stool within the rectum. No evidence for a bowel obstruction. No free fluid is present. Bladder wall thickening is noted. This may be chronic. There are no acute fractures within the lumbar spine, pelvis or hips. There is severe right hip osteoarthritis. IMPRESSION: 1. No acute traumatic findings within the abdomen or pelvis. 2. Bladder wall thickening which could be correlated with urinalysis. ACT 112: Negative or not required by law. Electronically signed by: Orion Huynh M.D. 07/10/2025 12:[address] 07/10/25 11:30 CT SCAN OF THE CERVICAL SPINE CLINICAL HISTORY: Fall. COMPARISON STUDY: CTA of the neck January 12, 2024. TECHNIQUE: CT scan of the cervical spine is performed from the skull base to the upper thoracic spine. Images are reviewed in the axial, sagittal, and coronal planes. IV contrast was not administered for this examination. A dose lowering technique was utilized adhering to the principles of ALARA. FINDINGS: Skeletal structures: This exam is mildly compromised by artifact. There is no evidence of fracture or subluxation involving the cervical spine. Vertebral body height and alignment are maintained. The odontoid process and lateral masses are intact. The atlantoaxial articulation is preserved. The spinous processes appear intact. There is moderate multilevel disc space narrowing, endplate osteophytosis and facet arthrosis within the cervical spine. Soft tissues: The prevertebral and paraspinous soft tissues are within normal limits. Calvarium: The visualized calvarium at the skull base appears intact. Brain parenchyma: Partially visualized brain parenchyma at the skull base is within normal limits. Lung apices: Clear as visualized. IMPRESSION: No acute cervical spine fracture or subluxation. Exam mildly compromised by artifact. ACT 112: Negative or not required by law. Electronically signed by: Orion Huynh M.D. 07/10/2025 12:[address] 07/10/25 11:[address] WITH CONTRAST HISTORY: Acute chest trauma Trauma TECHNIQUE: Multiaxial CT images of the chest were performed following the IV administration of 93 cc of Optiray. A dose lowering technique was utilized adhering to the principles of ALARA. COMPARISON: Chest CT 11/20/2024, Chest CT March 03, 2024. Chest CT June 08, 2019. Chest CT October 26, 2023. FINDINGS: Unremarkable thyroid. No enlarged axillary, mediastinal or hilar lymph nodes are present. There is extensive coronary artery calcification. The size the heart is normal. There is no pericardial effusion. No pneumothorax or pleural effusion is present. Mild right hemidiaphragmatic elevation. There are stable postoperative findings within the right upper lobe. Stable postthoracotomy changes are noted within the right chest wall. A 5 mm nodule along the right major fissure on image 90 is unchanged from earlier exams. This is benign given stability. 6 mm subpleural nodular density within the right upper lobe on image 50 is also unchanged since prior exam. This is stable to decreased in size from earlier studies and represents scarring. Additional subpleural densities are unchanged and favor scarring. No consolidation to suggest pneumonia. No new pulmonary nodules. Right-sided parapelvic cysts are incidentally noted. IMPRESSION: 1. No acute posttraumatic intrathoracic abnormality. 2. No suspicious pulmonary nodules. 3. Chronic postoperative changes of the right lung with stable benign-appearing nodular foci as above. 4. Extensive coronary artery calcifications. ACT 112: Negative or not required by law. Electronically signed by: Hieu White M.D. 07/10/2025 12:21 PM Chest X-Ray 07/10/25 11:30 XR chest 1V portable CLINICAL HISTORY: Trauma. COMPARISON STUDY: Chest CT November 20, 2024. Chest radiograph April 28, 2025. FINDINGS: Lordotic positioning is noted. There are postoperative findings within the right hemithorax. No pneumothorax is identified. There is no pleural effusion. Cardiomegaly is again noted. There is no evidence for overt pulmonary edema. Apparent left-sided rib deformities are likely artifactual. IMPRESSION: No acute cardiopulmonary findings. ACT 112: Negative or not required by law. Electronically signed by: Orion Huynh M.D. 07/10/2025 11:[address] 07/10/25 11:30 CT SCAN OF THE BRAIN WITHOUT IV CONTRAST CLINICAL HISTORY: Trauma COMPARISON STUDY: CT of the brain dated 03/03/2024 TECHNIQUE: Unenhanced CT scan of the brain is performed from the vertex to the skull base. Images are reviewed in the axial, sagittal, coronal planes. A dose lowering technique was utilized adhering to the principles of ALARA. CT DOSE: 3617.86 mGy.cm FINDINGS: Brain parenchyma: A small focus of right posterior parietal encephalomalacia is unchanged and consistent with a remote insult. There is age-related involutional change noting moderate subcortical and periventricular microangiopathic disease. There is no hemorrhage, mass effect, or evidence of acute territorial ischemia by CT criteria. [place]-white matter differentiation is preserved. No extra-axial fluid collection is seen. Ventricles, sulci, cisterns: Prominent secondary to involutional change. Intracranial vasculature: There is atherosclerotic calcification of the cavernous carotid and vertebral arteries. Calvarium: Unremarkable. Sinuses and mastoids: There is [id number] mucosal thickening within the ethmoid sinuses. Mild mucosal thickening is also seen in the maxillary antra. The mastoid air cells are well pneumatized. Orbits: The bony orbits are grossly intact. There are bilateral ocular lens implants. IMPRESSION: There is no hemorrhage, mass effect, or evidence of acute territorial ischemia by CT criteria. ACT 112: Negative or not required by law. Electronically signed by: Kirit Pablo M.D. 07/10/2025 12:18 PM Pelvis X-Ray 07/10/25 11:30 XR pelvis 1-2V routine HISTORY: 85 years-old Female Trauma acute pelvic trauma COMPARISON: 04/24/2024 TECHNIQUE: AP view of the pelvis FINDINGS: [id number] left with severe right hip osteoarthritis. Numerous benign appearing corticated ossifications project over the pelvis. Prominent subcortical cystic changes of the right femoral head. Arterial calcifications. No acute fracture or dislocation identified. IMPRESSION: 1. No acute fracture or dislocation. 2. Severe osteoarthritis of the right hip ACT 112: Negative or not required by law. The above report was generated using voice recognition software. It may contain grammatical, syntax or spelling errors. Electronically signed by: Hieu White M.D. 07/10/2025 11:46 AM Discharge Plan Visit Data Chief Complaint: Trauma Stated Complaint: FALL, BACK PAIN ED Provider: Vanita Jewell Discharge Problem: Fall, Low back pain, COVID-19, Generalized weakness, Ambulatory dysfunction, Acute UTI (urinary tract infection), Elevated troponin Patient Disposition: Admitted As Inpatient Condition: Fair Forms Stand Alone Forms: My [facility] Prescriptions Prescriptions: No Action cholecalciferol (vitamin D3) 50 mcg (2,000 unit) capsule 50 mcg PO DAILY Qty: 90 3RF Rx Instructions: with heaviest meal of the day (DME) diaper,brief,adult,disposable Misc See Rx Instructions .Route Qty: 60 11RF Rx Instructions: PULL-UP BRIEFS, SIZE LARGE, USING 2 A DAY miscellaneous medical supply Misc 4 ea miscellaneous .COMPLEX Qty: 4 11RF Rx Instructions: 4 PACKS OF CLEANSING/BODY WIPES PER MONTH aspirin [Adult Low Dose Aspirin] 81 mg tablet,delayed release (DR/EC) 81 mg PO DAILY cyanocobalamin (vitamin B-12) 2,500 mcg tablet, sublingual 2,500 mcg SL DAILY Eliquis 5 mg tablet 5 mg PO Q12H Qty: 180 3RF Rx Instructions: Filled 12/21/23 for 90 day supply hydrochlorothiazide 25 mg tablet 25 mg PO DAILY Qty: 90 3RF metoprolol succinate 100 mg tablet extended release 24 hr 150 mg PO DAILY Qty: 135 3RF rosuvastatin 10 mg tablet 10 mg PO DAILY Qty: 90 3RF Referrals Referrals: Dodie Mares MD [Primary Care Provider] -
--- NOTE | 2025-07-10 12:22 | CT Scan Report ---
CHEST CT WITH CONTRAST HISTORY: Acute chest trauma Trauma TECHNIQUE: Multiaxial CT images of the chest were performed following the IV administration of 93 cc of Optiray. A dose lowering technique was utilized adhering to the principles of ALARA. COMPARISON: Chest CT 11/20/2024, Chest CT March 03, 2024. Chest CT June 08, 2019. Chest CT September 292023. FINDINGS: Unremarkable thyroid. No enlarged axillary, mediastinal or hilar lymph nodes are present. T here is extensive coronary artery calcification. The size the heart is normal. There is no pericardia l effusion. No pneumothorax or pleural effusion is present. Mild right hemidiaphragmatic elevation. There are sta ble postoperative findings within the right upper lobe. Stable postthoracotomy changes are noted with in the right chest wall. A 5 mm nodule along the right major fissure on image 90 is unchanged from ea rlier exams. This is benign given stability. 6 mm subpleural nodular density within the right upper l obe on image 50 is also unchanged since prior exam. This is stable to decreased in size from earlier studies and represents scarring. Additional subpleural densities are unchanged and favor scarring. No consolidation to suggest pneumonia. No new pulmonary nodules. Right-sided parapelvic cysts are incid entally noted. IMPRESSION: 1. No acute posttraumatic intrathoracic abnormality. 2. No suspicious pulmonary nodules. 3. Chronic postoperative changes of the right lung with stable benign-appearing nodular foci as above . 4. Extensive coronary artery calcifications. ACT 112: Negative or not required by law. Electronically signed by: Hieu White M.D. 07/10/2025 12:21 PM
[2025-07-10 12:26] LABS: Alanine Aminotransferase 12.0 U/L (7-52); Albumin Globulin Ratio 1.2 (0.9-2); Albumin Level 4.1 gm/dl (3.4-5.0); Alkaline Phosphatase 53.0 U/L (34-104); Anion Gap 8.0 (3-11); Bilirubin,Total 0.7 mg/dl (0.2-1.0); Blood Urea Nitrogen 23.0 mg/dl (6-23); Calcium 9.3 mg/dl (8.6-10.3); Carbon Dioxide 31.0 mmol/L (21-32); Chloride 98.0 mmol/L (98-107); Creatinine Clr Calc Pharmacy 37.1 ml/min; Globulin 3.3 gm/dl (2.5-4.0); Glucose 132.0 mg/dl (70-99(Fasting)); Lipase 26.0 U/L (11-82); Potassium 4.0 mmol/L (3.5-5.1); Sodium 137.0 mmol/L (136-145); Total Protein 7.4 gm/dl (6.0-8.3)
--- NOTE | 2025-07-10 12:28 | CT Scan Report ---
CT SCAN OF THE ABDOMEN AND PELVIS WITH IV CONTRAST CLINICAL HISTORY: Fall. COMPARISON STUDY: Pelvis CT April 24, 2024. CT of the abdomen and pelvis June 08, 2019. TECHNIQUE: Following the IV administration of 93 cc of Optiray 320, CT scan of the abdomen and pelvi s is performed from the lung bases to the proximal femora. Images are reviewed in the axial, sagittal , and coronal planes. IV contrast was administered without complication. A dose lowering technique wa s utilized adhering to the principles of ALARA. FINDINGS: Please note that the chest CT will be reported separately. There is no hemoperitoneum or pn eumoperitoneum. No evidence for traumatic injury to the liver, spleen, adrenal glands, kidneys or thurston creas. A 2.1 cm right renal cyst is present. There are bilateral renal parapelvic cysts. No bowel wal l thickening. There is a moderate amount of stool within the rectum. No evidence for a bowel obstruct ion. No free fluid is present. Bladder wall thickening is noted. This may be chronic. There are no ac [place] fractures within the lumbar spine, pelvis or hips. There is severe right hip osteoarthritis. IMPRESSION: 1. No acute traumatic findings within the abdomen or pelvis. 2. Bladder wall thickening which could be correlated with urinalysis. ACT 112: Negative or not required by law. Electronically signed by: Orion Huynh M.D. 07/10/2025 12:26 PM
[2025-07-10 12:38] LABS: INR 1.1 (0.9-1.1); Partial Thromboplastin Time 29 Seconds (21-31); Prothrombin Time 11.5 Seconds (9.0-12.0)
[2025-07-10 12:47] LABS: Influenza A virus by PCR Negative (Neg); Influenza B virus by PCR Negative (Neg); SARS CoV2 RNA(COVID-19) Ceph POSITIVE (Negative)
[2025-07-10 13:32] LABS: Appearance Urine Cloudy (Clear); Bacteria Urine Automated 4+ (None Seen); Epithelial Cell Urine Auto 0-2 /hpf (0-2); Glucose Urine UA Negative (Negative); WBC Urine Automated >50 /hpf (0-5)
[2025-07-10] MEDS: cefTRIAXone SODIUM 2,000 MG/50 ML BAG IV STA (14:05)
--- NOTE | 2025-07-10 15:56 | Electrocardiogram Report ---
Test Reason : Blood Pressure : */* mmHG Vent. Rate : 65 BPM Atrial Rate : 65 BPM P-R Int : 214 ms QRS Dur : 110 ms QT Int : 426 ms P-R-T Axes : 49 -11 30 degrees QTcB Int : 443 ms Sinus rhythm with 1st degree A-V block Minimal voltage criteria for LVH, may be normal variant ( Lorenzo product ) Nonspecific T wave abnormality Abnormal ECG When compared with ECG of 04-Mar-2024 00:36, T wave inversion no longer evident in Inferior leads Nonspecific T wave abnormality has replaced inverted T waves in Anterolateral leads Confirmed by Willis Ahmadi ([id number]) on 07/10/2025 3:56:05 PM Referred By: REFERRED SELF Confirmed By: Willis Ahmadi
[2025-07-10] MEDS ORDERED: BENZONATATE 100 MG CAPSULE PO PRN (16:35)
--- NOTE | 2025-07-10 16:54 | History & Physical Report ---
Date of Service July 10, 2025 Assessment & Plan (1) Acute UTI (urinary tract infection): (2) COVID-19: (3) CAD (coronary artery disease): (4) Hypertension: (5) Fall: Plan 85-year-old [place]auruan-speaking woman who developed symptoms of cough nasal congestion and malaise as well as dysuria and urinary frequency 48 hours ago. Since yesterday she has been weak and it has been difficult to get around at home. Today she slipped off her bed and fell onto the floor, EMS brought her to the emergency department where she was diagnosed with COVID 19 and urinary tract infection. No acute traumatic injuries were identified on examination or thur[place] CT # UTI Symptomatic of dysuria and urinary frequency as well as an incontinence episode. Pyuria and bacteriuria on urinalysis, bladder wall thickening on CT. - Continue ceftriaxone 1 g IV daily, follow up urine culture - Mildly dehydrated so we will hold hydrochlorothiazide and treat with an additional liter of IV NS at 125 mL/h # COVID-19 Positive test, mild symptoms. She is at increased risk for severe disease because she is unvaccinated, has obesity with BMI almost 40, elderly age, underlying systemic disease including hypertension and coronary artery disease - No hypoxia or pulmonary infiltrates - Discussed option of antiviral with her daughter and we will treat with remdesivir 3-day course. Check BMP and AST/ALT in a.m. - Tessalon as needed for cough # Fallshe sustained a fall slipping from the bed and no apparent traumatic injuries. She is anticoagulated. Trauma alert was activated erroneously because of limited prehospital history - Monitor for any signs and symptoms of traumatic injury or hemorrhage resultant of the fall, low risk as it was from less than standing height - Currently too weak to stand up and transfer herself in the ED this is related to her infections, ordered PT and OT evaluation # Possible mild acute metabolic encephalopathy related to the infections above # Ambulatory dysfunction Unable to mobilize independently, likely secondary to infections. - Arrange PT and OT consultation #CAD with hx LV thrombus/inferoapical wma, and history of stroke -these are stable, no focal neurological deficits #Minimal myocardial demand ischemia Extensive coronary calcifications on CT, minimal troponin elevation due to myocardial demand ischemia from infections. No evidence of acute coronary syndrome. Her current chest pain is almost at the level of the throat and associated with coughing most likely COVID/cough related and not suspicious for angina - Continue Xarelto, aspirin, metoprolol - Followed by Samm Lizarraga in cardiology clinic # Hypertension Continue metoprolol, hold hydrochlorothiazide due to volume depletion and mildly elevated creatinine # Hyperlipidemia Continue rosuvastatin 10 mg # CKD stage 3 Mild creatinine elevation. - Recheck BMP after IV fluids and holding hydrochlorothiazide # Severe right hip osteoarthritis Severe osteoarthritis noted. Acetaminophen as needed Tessalon as needed for cough # DVT Prophylaxis: She is anticoagulated on Xarelto She resides at home alone in an apartment on the second floor with an elevator access. She does use a walker for mobility. Her daughter and son-in-law check on her frequently She reports that she prefers to be DNR/DNI. Her daughter indicates that she signed paperwork to this effect with her physician 6 months ago as well Medical Complexity: Medical decision making was complex, high risk for clinical deterioration morbidity, or mortality for this encounter. High risk medications: Xarelto, remdesivir, IV ceftriaxone History of Present Illness Chief Complaint: fall, malaise/weakness, cough, dysuria Primary Care Provider: Dodie Mares MD 85-year-old woman slipped off her bed. Limited historian, but with [place]uan video gambling broker and daughter, determined she was in usual state of mobility until yesterday when she became weaker and had more trouble getting around. This morning, she slid off the side of her bed and fell onto the floor while alone. Too weak to get up, daughter brought her in. EMS transported her to ED. Reports coughing, nasal congestion, chills, upper central chest pain with coughing, nausea without vomiting, dysuria, urinary frequency, generalized weakness, malaise, and body soreness. No sore throat, abdominal pain, diarrhea, headache, or neck soreness. Symptoms started Monday. No sick contacts. Daughter reports past COVID-19 infection, not vaccinated. No significant injury from fall. Low back pain related to fall. Slid off bed, not a fall from standing. Did not hit head. Has some chronic hip pain related to osteoarthritis unchanged I interviewed her with a Nauruan audio gambling broker, video was not unavailable. Also her daughter who speaks Ukrainian and Nauruan was at the bedside and provided additional history Allergies Allergy/AdvReac Type Severity Reaction Status Date / Time Penicillins Allergy Severe SHORT OF Verified 01/21/25 09:02 BREATH atorvastatin AdvReac Unknown DAUGHTER Verified 01/21/25 09:02 DID NOT KNOW REACTION pravastatin AdvReac Unknown DAUGHTER Verified 01/21/25 09:02 DID NOT KNOW REACTION simvastatin AdvReac Unknown DAUGHTER Verified 01/21/25 09:02 DID NOT KNOW REACTION Home Medications Medication Instructions Recorded Confirmed Type cyanocobalamin (vitamin B-12) 2,500 mcg sublingual DAILY 11/01/19 07/10/25 History 2,500 mcg sublingual tablet aspirin 81 mg tablet,delayed 0 mg PO DAILY 11/17/20 07/10/25 History release (Adult Low Dose Aspirin) cholecalciferol (vitamin D3) 50 50 mcg PO DAILY #90 caps 03/23/21 07/10/25 Rx mcg (2,000 unit) capsule apixaban 5 mg tablet (Eliquis) 5 mg PO Q12H #180 tabs 01/21/25 07/10/25 Rx hydrochlorothiazide 25 mg tablet 25 mg PO DAILY #90 tabs 01/21/25 07/10/25 Rx metoprolol succinate 100 mg 150 mg (1.5 x 100 mg) PO DAILY 01/21/25 07/10/25 Rx tablet,extended release 24 hr #135 tabs rosuvastatin 10 mg tablet 10 mg PO DAILY #90 tabs 01/21/25 07/10/25 Rx diaper,brief,adult,disposable #60 ea 02/13/25 04/28/25 Rx Past Med/Surg History Problem List Elevated troponin (Acute) Acute UTI (urinary tract infection) (Acute) Ambulatory dysfunction (Acute) Generalized weakness (Acute) COVID-19 (Acute) Low back pain (Acute) Fall (Acute) Cough H/O: CVA (cerebrovascular accident) Urinary incontinence Nodule of upper lobe of right lung Palpitations Vitamin D deficiency disease Cognitive and behavioral changes CAD (coronary artery disease) LV (left ventricular) mural thrombus EKG abnormalities Gait disturbance Polyarthritis of multiple sites Health care maintenance Constipation (Acute) Esophageal reflux (Acute) Fatty liver (Acute) Hearing loss (Acute) Hypercholesterolemia (Acute) Low back pain (Acute) Osteopenia (Acute) Hemorrhoids (Acute) Prediabetes (Acute) Vitamin B12 deficiency (Acute) Hypertension (Acute) Medical History Pain of left breast Acute electrocardiogram changes TSH elevation SOB (shortness of breath) Elevated troponin Dizziness SOBOE (shortness of breath on exertion) Arthritis of shoulder region, right Polyarthropathy, inflammatory Pre-hypertension Hypertension Pyelonephritis UTI (urinary tract infection) High cholesterol Shoulder contusion Surgical History S/P thoracotomy History of colonoscopy Family History Mother Hypercholesteremia Denies family history of Ovarian cancer Prostate cancer Myocardial infarction Breast cancer Colorectal cancer Social History Smoking Status: Never smoker Second Hand Exposure: Yes; Do You Dip or Chew Tobacco: No; Hx Alcohol Use: No Hx Substance Use: No Preferred Language: Nauruan Communication Ability: Effective Communication Tools: IPad Criminal Justice Professor Required: Yes Beliefs That Will Affect Care: Cheondoism Cheondoism Beliefs: [facility] Alevism marital status: / Current Living Situation: Family current occupational status: retired Feels Safe at Home: Yes Childhood Exposure to Second-Hand Smoke: No Dental Care, Regularly: No Physical Activity Frequency: 3-4 Times per Week Seatbelt Use: always Sunscreen Use: No Assistive Devices: None Review of Systems Review of Systems: All systems reviewed & are unremarkable except as noted in HPI & below Positive for cough, nasal congestion, chills, upper central chest pain, nausea, dysuria, urinary frequency, generalized weakness, malaise, and body soreness. Osteoarthritis pain including hips Negative for sore throat, abdominal pain, diarrhea, vomiting, headache, or neck soreness. Physical Exam Physical Exam: General Appearance: Awake, alert, limited verbal responses, slightly forgetful. Vital signs: Reviewed past 24h vital signs in EMR, unremarkable. HEENT: Atraumatic head, moist mucous membranes. Neck is supple no pain or tenderness on [id number] range of motion or flexion/extension. C-spine T- spine and L-spine nontender to palpation with no deformity Respiratory: Clear lungs bilaterally, no wheezing or rales productive cough. Cardiovascular: Regular heart rhythm, no murmurs, rubs, or gallops. No JVD. Gastrointestinal: Soft, nontender, nondistended, suprapubic tenderness present, no flank tenderness. Back, Musculoskeletal: No tenderness over T or L spine. Extremities: Warm, well perfused, no deformity, no pitting edema. Skin: Warm, dry, no rashes. Neurological: Awake, alert, limited verbal responses, slightly forgetful. Psychiatric: Normal. Results & Data Results & Data Vital Signs (Past 12 Hours) Vital Signs Temp Pulse Pulse Resp BP BP Pulse Ox 07/10/25 16:15 59 L 07/10/25 16:09 58 L 27 H 127/64 94 07/10/25 15:02 61 23 129/63 93 07/10/25 15:02 61 23 129/63 93 07/10/25 14:00 60 18 114/56 L 92 07/10/25 13:00 57 L 19 114/65 92 07/10/25 12:36 60 26 H 115/59 L 90 07/10/25 12:04 60 26 H 92 07/10/25 11:33 37.3 C 66 22 126/73 96 07/10/25 11:33 96 07/10/25 11:33 37.3 C 66 22 126/73 96 07/10/25 11:33 37.3 C 66 22 126/73 96 07/10/25 11:33 37.3 C 66 22 126/73 96 O2 Del Method O2 Flow Rate 07/10/25 16:15 07/10/25 16:09 Room Air 07/10/25 15:02 Room Air 07/10/25 15:02 Room Air 07/10/25 14:00 Room Air 07/10/25 13:00 Room Air 07/10/25 12:36 Room Air 07/10/25 12:04 Room Air 07/10/25 11:33 Room Air 07/10/25 11:33 Room Air 07/10/25 11:33 Room Air 07/10/25 11:33 Room Air 0 07/10/25 11:33 Room Air Diagnostic Findings - Laboratory Studies: - CBC: Normal - Chemistry panel: Creatinine slightly elevated at 1.19 (baseline 0.9-1.1) - High sensitivity troponin: Slightly elevated at 17 - Coags: Normal - LFTs: Normal - Lipase: Normal - Viral screen: Positive for COVID-19 - Urinalysis: Pyuria, 4+ bacteria - Imaging: - Pelvis x-ray: No fracture, moderate left hip osteoarthritis, severe right hip osteoarthritis - Head CT: No acute changes - Chest x-ray: Cardiomegaly, postoperative changes in right lung/hemithorax, no pulmonary edema, pneumothorax, pleural effusion, or focal infiltrates. I personally reviewed the chest x-ray film and agree with this interpretation - Chest CT: No traumatic injuries, no pulmonary nodules, chronic postoperative changes in right lung with stable benign nodular foci, extensive coronary artery calcifications - C-spine CT: Negative for fracture or subluxation - Abdomen and pelvis CT: No traumatic findings, bladder wall thickening - Diagnostic Testing: - I personally reviewed and interpreted the EKG: Nonspecific ST changes, sinus rhythm with first degree AV block, possible LVH Code Status & VTE Plan VTE Prophylaxis Plan VTE Prophylaxis will be ordered: Yes PG Care Time/CCT Total # of Minutes Spent Total Time Spent with Patient: Total time spent is greater than 50% in coordination of care (as documented) at patient's floor/unit and/or counseling patient: Coding Level of Care Code 84819 INT INP/OBS CARE 3/75MIN Diagnoses Acute UTI (urinary tract infection) N39.0 COVID-19 U07.1 Coronary artery disease involving enterprise coronary artery of enterprise heart without angina pectoris I25.10 Coronary Disease-Associated Artery/Lesion type: enterprise artery [place] vs. transplanted heart: enterprise heart Associated angina: without angina Hypertension, unspecified type I10 Hypertension type: unspecified Fall W19.XXXA (3) CAD (coronary artery disease) Coronary Disease-Associated Artery/Lesion type: enterprise artery [place] vs. transplanted heart: enterprise heart Associated angina: without angina Qualified Code(s): I25.10 - Atherosclerotic heart disease of enterprise coronary artery without angina pectoris (4) Hypertension Hypertension type: unspecified Qualified Code(s): I10 - Essential (primary) hypertension
[2025-07-10] MEDS: SODIUM CHLORIDE 0.9% 1,000 ML IV SCH (17:27)
[2025-07-10] MEDS: REMDESIVIR 200 MG in SODIUM CHLORIDE 0.9% 210 ML IV STA (17:27)
[2025-07-10] MEDS ORDERED: ONDANSETRON INJ 2 MG/ML 2 ML VIAL IV PRN (21:05)
[2025-07-10] MEDS ORDERED: ACETAMINOPHEN 325 MG TAB PO PRN (21:05)
[2025-07-10] MEDS ORDERED: ALUMINUM/MAGNESIUM SUSP 30 ML UDC PO PRN (21:05)
[2025-07-10] MEDS ORDERED: MAGNESIUM HYDROXIDE SUSP 30 ML UDC PO PRN (21:05)
[2025-07-10] MEDS: APIXABAN 5 MG TABLET PO SCH (22:50)
[2025-07-10] MEDS: POLYETHYLENE (MIRALAX) 17 GM PACK PO SCH (22:50)
[2025-07-11] MEDS: CHOLECALCIFEROL 25 MCG (1000 UNITS) TAB PO SCH (08:06)
[2025-07-11] MEDS: METOPROLOL SUCC 50MG EXT REL TAB PO SCH (08:07)
[2025-07-11] MEDS: ROSUVASTATIN CALCIUM 10 MG TAB PO SCH (08:07)
[2025-07-11] MEDS: cefTRIAXone SODIUM 2,000 MG/50 ML BAG IV SCH (11:55)
[2025-07-11 13:47] LABS: Albumin Level 3.8 gm/dl (3.4-5.0); Anion Gap 10 (3-11); Bilirubin,Total 0.5 mg/dl (0.2-1.0); Calcium 8.6 mg/dl (8.6-10.3); Carbon Dioxide 23 mmol/L (21-32); Chloride 103 mmol/L (98-107); Sodium 136 mmol/L (136-145)
[2025-07-11 13:54] LABS: Alanine Aminotransferase 13 U/L (7-52); Alkaline Phosphatase 45 U/L (34-104); Blood Urea Nitrogen 22 mg/dl (6-23); Creatinine Clr Calc Pharmacy 39.4 ml/min; Glucose 150 mg/dl (70-99(Fasting)); Total Protein 6.9 gm/dl (6.0-8.3)
--- NOTE | 2025-07-11 15:43 | Hospitalist Progress Note ---
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 she has been weak and it has been difficult to get around at home. day of admission she slipped off her bed and fell onto the floor, EMS brought her to the emergency department where she was diagnosed with COVID 19 and urinary tract infection. No acute traumatic injuries were identified on examination or [place] CT # UTI Symptomatic of dysuria and urinary frequency as well as an incontinence episode. Pyuria and bacteriuria on urinalysis, bladder wall thickening on CT. - Continue ceftriaxone 1 g IV daily, follow up urine culture sensitivities, g rowing 100,000 E. coli - continue holding hydrochlorothiazide # COVID-19 Positive test, mild symptoms. She is at increased risk for severe disease because she is unvaccinated, has obesity with BMI almost 40, elderly age, underlying systemic disease including hypertension and coronary artery disease - No hypoxia or pulmonary infiltrates - remdesivir 3-day course. - Check BMP and AST/ALT in a.m. - Tessalon as needed for cough # Fallshe sustained a fall slipping from the bed and no apparent traumatic injuries. She is anticoagulated. Trauma alert was activated erroneously because of limited prehospital history she was also found on the floor having apparently fallen out of the bed evening of admission that was unwitnessed there were no apparent injuries - no injuries identified on tertiary survey this midday # Possible mild acute metabolic encephalopathy related to the infections above # Ambulatory dysfunction Unable to mobilize independently, likely secondary to infections. - PT and OT consultation - recommend ongoing skilled PT and OT in the hospital may benefit from rehab depending on clinical progress not currently safe for discharge alone without 24/7 supervision #CAD with hx LV thrombus/inferoapical wma, and history of stroke -these are stable, no focal neurological deficits #Minimal myocardial demand ischemia Extensive coronary calcifications on CT, minimal troponin elevation due to myocardial demand ischemia from infections. No evidence of acute coronary syndrome. Her current chest pain is almost at the level of the throat and associated with coughing most likely COVID/cough related and not suspicious for angina - Continue Xarelto, aspirin, metoprolol - Followed by Samm Lizarraga in cardiology clinic # Hypertension Continue metoprolol, hold hydrochlorothiazide due to volume depletion and mildly elevated creatinine # Hyperlipidemia Continue rosuvastatin 10 mg # CKD stage 3 Mild creatinine elevation. - Recheck BMP in a.m. # Severe right hip osteoarthritis Severe osteoarthritis noted. Acetaminophen as needed Tessalon as needed for cough # DVT Prophylaxis: She is anticoagulated on Xarelto She resides at home alone in an apartment on the second floor with an elevator access. She does use a walker for mobility. Her daughter and son-in-law check on her frequently She reports that she prefers to be DNR/DNI. Her daughter indicates that she signed paperwork to this effect with her physician 6 months ago as well Medical Complexity: Medical decision making was complex, high risk for clinical deterioration morbidity, or mortality for this encounter. High risk medications: Xarelto, remdesivir, IV ceftriaxone Admission and Anticipated Discharge Date Admission Date: July 10, 2025 Subjective denies pain shortness of breath improved Patient found by nursing staff on the floor after rolling out of bed yesterday afternoon. Incident was unwitnessed, no apparent injuries. Vital signs: Reviewed past 24h vital signs in EMR, notable for: Tmax 38.7C at 9 PM last night. O2 sat 97% on 2 L. Physical Exam Physical Exam: Tertiary Survey: Objective: All labs and imaging reports reviewed. Physical Exam: General: - Alert: Yes - Oriented: Yes - GCS 15: Yes HEENT: - No pain/tenderness. - No lacerations/abrasions - No numbness/tingling - PERLAA. No facial asymmetry. - Mucous membranes moist. Neck: - Midline Tenderness: No - Cleared C-Spine: Yes Thorax: - Pain/Tenderness: None - Lacerations/Abrasions: None - Swelling/Ecchymosis: None - Air/Bony Crepitus: None Cardiopulmonary: - Regular Rate and Rhythm. No mur murs, rubs or gallops. - Breath sounds CTAB. No wheezes, rales, or rhonchi. - Symmetrical Chest Rise Abdomen - Pain/Tenderness: None - Lacerations/Abrasions: None - No abdominal distension - Abdominal rigidity/guarding: No ne - Bowel Sounds: Present, normal - Pelvis stable Back/Spine - Lacerations/Abrasions: None - Swelling/Ecchymosis: None - Pain/Tenderness: None - Step-offs: None Extremities: - RUE: No deformity. No laceratio ns/abrasions. No swelling/ecchymosis. No pain/tenderness. Full active and passive range of motion. Electrical Manufacturing Engineer strength, elbow flexion/extension, shoulder flexion/extension with 5/5 strength. Sensation intact to soft touch without deficit. Radial pulse intact - RLE: No deformity. No laceratio ns/abrasions. No swelling/ecchymosis. No pain/tenderness. Full active and passive range of motion. Electrical Manufacturing Engineer strength, elbow flexion/extension intact with 5/5 strength. Sensation intact to soft touch without deficit. Radial pulse intact - LLE: No deformity. No laceratio ns/abrasions. No swelling/ecchymosis. No pain/tenderness. Full active and passive range of motion. Sensation intact to soft touch without deficit. PT pulse intact to palpation - RLE: No deformity. No laceratio ns/abrasions. No swelling/ecchymosis. No pain/tenderness. Full active and passive range of motion. Sensation intact to soft touch without deficit. PT pulse intact to palpation Mental status Adequate for Full Exam: Yes C-Spine Cleared (Radiologically AND Clinically): Yes Results & Data Results & Data Vital Signs (Past 12 Hours) Vital Signs Temp Pulse Pulse Resp BP Pulse Ox Pulse Ox 07/11/25 15:10 95 07/11/25 14:31 37.3 C 55 L 16 111/69 98 07/11/25 08:09 68 97 07/11/25 07:30 07/11/25 07:12 36.9 C 55 L 16 114/70 93 O2 Del Method O2 Flow Rate O2 Flow Rate 07/11/25 15:10 0 07/11/25 14:31 Nasal Cannula 2 07/11/25 08:09 Nasal Cannula 2 07/11/25 07:30 Room Air 07/11/25 07:12 Nasal Cannula 2 Laboratory Results CBC and BMP were ordered but not drawn for unknown reason PG Care Time/CCT Total # of Minutes Spent Total Time Spent with Patient: Total time spent is greater than 50% in coordination of care (as documented) at patient's floor/unit and/or counseling patient: Coding Level of Care Code 18563 SUB INP/OBS CARE MIN Diagnoses Acute UTI (urinary tract infection) N39.0 COVID-19 U07.1 Coronary artery disease involving [place] coronary artery of [place] heart without angina pectoris I25.10 Coronary Disease-Associated Artery/Lesion type: [place] artery [place] vs. transplanted heart: [place] heart Associated angina: without angina Hypertension, unspecified type I10 Hypertension type: unspecified Fall W19.XXXA (3) CAD (coronary artery disease) Coronary Disease-Associated Artery/Lesion type: [place] artery [place] vs. transplanted heart: [place] heart Associated angina: without angina Qualified Code(s): I25.10 - Atherosclerotic heart disease of [place] coronary artery without angina pectoris (4) Hypertension Hypertension type: unspecified Qualified Code(s): I10 - Essential (primary) hypertension
[2025-07-11] MEDS: REMDESIVIR 100 MG in SODIUM CHLORIDE 0.9% 230 ML IV SCH (16:58)
[2025-07-11 17:52] LABS: Potassium 3.8 mmol/L (3.5-5.1)
[2025-07-11] MEDS: ALBUTEROL 0.083% NEBU SOLN 3 ML VIAL NEB PRN (18:23)
[2025-07-12 07:38] LABS: Albumin Level 3.5 gm/dl (3.4-5.0); Anion Gap 8.0 (3-11); Bilirubin,Total 0.3 mg/dl (0.2-1.0); Calcium 8.4 mg/dl (8.6-10.3); Carbon Dioxide 24.0 mmol/L (21-32); Chloride 107.0 mmol/L (98-107); Potassium 4.1 mmol/L (3.5-5.1); Sodium 139.0 mmol/L (136-145)
[2025-07-12 07:44] LABS: Alanine Aminotransferase 12.0 U/L (7-52); Albumin Globulin Ratio 1.3 (0.9-2); Alkaline Phosphatase 42.0 U/L (34-104); Blood Urea Nitrogen 20.0 mg/dl (6-23); Creatinine Clr Calc Pharmacy 46.9 ml/min; Globulin 2.7 gm/dl (2.5-4.0); Glucose 101.0 mg/dl (70-99(Fasting)); Total Protein 6.2 gm/dl (6.0-8.3)
--- NOTE | 2025-07-12 17:22 | Hospitalist Progress Note ---
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 she has been weak and it has been difficult to get around at home. day of admission she slipped off her bed and fell onto the floor, EMS brought her to the emergency department where she was diagnosed with COVID 19 and urinary tract infection. No acute traumatic injuries were identified on examination or [place] CT # E. coli UTI Symptomatic of dysuria and urinary frequency as well as an incontinence episode. Pyuria and bacteriuria on urinalysis, bladder wall thickening on CT. - treated with ceftriaxone 1 g daily x 3 days, changed to Keflex 500 mg p.o. twice daily to complete a total of 5 days # COVID-19 Positive test, mild symptoms. She is at increased risk for severe disease because she is unvaccinated, has obesity with BMI almost 40, elderly age, underlying systemic disease including hypertension and coronary artery disease - treated with remdesivir 3-day course. - BMP and LFTs unremarkable today - Tessalon as needed for cough - she is wheezy with a lot of crackles today however I think it is pulmonary edema related to acute diastolic heart failure and not related to the COVID, ordered Lasix 20 mg IV x 1 and assess response # Fallshe sustained a fall slipping from the bed and no apparent traumatic injuries. She is anticoagulated. Trauma alert was activated erroneously because of limited prehospital history she was also found on the floor having apparently fallen out of the bed evening of admission that was unwitnessed there were no apparent injuries - no injuries identified on tertiary survey 07/12 # Possible mild acute metabolic encephalopathy related to the infections above # Ambulatory dysfunction Unable to mobilize independently, likely secondary to infections. - PT and OT consultation - recommend ongoing skilled PT and OT in the hospital may benefit from rehab depending on clinical progress not currently safe for discharge alone without 24/7 supervision - remains forgetful or little confused at times which may be her baseline. no longer lethargic #CAD with hx LV thrombus/inferoapical wma, and history of stroke -these are stable, no focal neurological deficits #Minimal myocardial demand ischemia Extensive coronary calcifications on CT, minimal troponin elevation due to myocardial demand ischemia from infections. No evidence of acute coronary syndrome. Her current chest pain is almost at the level of the throat and associated with coughing most likely COVID/cough related and not suspicious for angina - Continue Xarelto, aspirin, metoprolol - resume hydrochlorothiazide in a.m. - Followed by Samm Lizarraga in cardiology clinic # Hypertension Continue metoprolol, resume hydrochlorothiazide # Hyperlipidemia Continue rosuvastatin 10 mg # CKD stage 3 Mild creatinine elevation. - resolved after IV fluids # Severe right hip osteoarthritis Severe osteoarthritis noted. Acetaminophen as needed Tessalon as needed for cough # DVT Prophylaxis: She is anticoagulated on Xarelto She resides at home alone in an apartment on the second floor with an elevator access. She does use a walker for mobility. Her daughter and son-in-law check on her frequently currently PT and OT are recommending rehab stay or 24-hour assist/supervision Admission and Anticipated Discharge Date Admission Date: July 11, 2025 Subjective 85-year-old woman with COVID-19 and UTI. Today, she is more short of breath with wheezing. she is pretty urgently needing to use the restroom. Her daughter was here earlier but not presently Physical Exam Physical Exam: General Appearance: Normal. Vital signs: Reviewed past 24h vital signs in EMR, unremarkable. HEENT: Within normal limits. Respiratory: Expiratory wheezing and crackles in AMY, LLL, and right base. Cardiovascular: Regular heart rate, no murmur. Gastrointestinal: Abdomen soft, nontender, nondistended. Extremities: Lower extremities warm, well perfused, no edema. Skin: Warm and dry, no rash. Neurological: AOx4, normal speech and mentation, mullen x 4. Psychiatric: Normal. Results & Data Results & Data Vital Signs (Past 12 Hours) Vital Signs Temp Pulse Pulse Resp BP BP Pulse Ox 07/12/25 16:00 36.5 C 63 16 115/71 92 07/12/25 09:10 07/12/25 07:58 37.2 C 56 L 16 108/65 92 O2 Del Method O2 Flow Rate 07/12/25 16:00 Room Air 07/12/25 09:10 Nasal Cannula 2 07/12/25 07:58 Room Air Laboratory Results - Laboratory Studies: - CMP: normal - Creatinine: 0.94 - No elevated LFTs - Urine culture: E. coli, resistant to cefuroxime but otherwise pansensitive Diagnostic Findings I personally reviewed the chest x-ray film appears there is some degree of pulmonary edema no focal infiltrates PG Care Time/CCT Total # of Minutes Spent Total Time Spent with Patient: Total time spent is greater than 50% in coordination of care (as documented) at patient's floor/unit and/or counseling patient: Coding Level of Care Code 51822 SUB INP/OBS CARE 3/50MIN Diagnoses Acute UTI (urinary tract infection) N39.0 COVID-19 U07.1 Coronary artery disease involving [place] coronary artery of [place] heart without angina pectoris I25.10 Coronary Disease-Associated Artery/Lesion type: [place] artery [place] vs. transplanted heart: [place] heart Associated angina: without angina Hypertension, unspecified type I10 Hypertension type: unspecified Fall W19.XXXA (3) CAD (coronary artery disease) Coronary Disease-Associated Artery/Lesion type: [place] artery [place] vs. transplanted heart: [place] heart Associated angina: without angina Qualified Code(s): I25.10 - Atherosclerotic heart disease of [place] coronary artery without angina pectoris (4) Hypertension Hypertension type: unspecified Qualified Code(s): I10 - Essential (primary) hypertension
--- NOTE | 2025-07-12 18:20 | XRay Report ---
EXAM: Portable AP chest radiograph TECHNIQUE: AP portable radiograph of the chest was obtained. INDICATION: Shortness of breath Comparison: Chest radiograph [address] of July 10, 2025 is not viewable in our system. FINDINGS: LINES and TUBES: None CARDIOVASCULAR: Cardiac silhouette is stably enlarged. Atherosclerosis of the thoracic aorta. LUNGS/PLEURA: No focal consolidation identified. Peribronchial cuffing that may be seen with bronchiolitis. Mild pulmonary vascular congestion and chronic interstitial lung changes appear similar to the prior radiograph. Redemonstrated surgical chain suture over the right upper hemithorax. No significant pleural fluid. No discernible pneumothorax. IMPRESSION: No focal consolidation identified. Peribronchial cuffing that may be seen with bronchiolitis. Electronically signed by Dante Tai 07-12-2025 6:19 PM
[2025-07-12] MEDS: FUROSEMIDE INJ 20 MG/2 ML VIAL IV ONE (18:25)
[2025-07-12] MEDS: MELATONIN 3 MG TAB PO PRN (20:03)
[2025-07-13] MEDS: hydroCHLOROthiazide 25 MG TAB PO SCH (09:37)
--- NOTE | 2025-07-13 10:46 | Hospitalist Progress Note ---
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 she has been weak and it has been difficult to get around at home. day of admission she slipped off her bed and fell onto the floor, EMS brought her to the emergency department. #E. coli UTI Symptomatic of dysuria and urinary frequency as well as an incontinence episode. Pyuria and bacteriuria on urinalysis bladder wall thickening on CT. CBC w/o leukocytosis. Renal function stable. treated with ceftriaxone 1 g daily x 3 days, changed to Keflex 500 mg p.o. twice daily through 07/14/2025. #COVID-19 Positive test, mild symptoms. Repeat CXR on 07/12 revealed no focal consolidation. peribronchial cuffing that may be seen with bronchiolitis s/p remdesivir 3-day course. Tessalon as needed for cough s/p 1 dose of Lasix on 07/12 secondary to crackles on PE - lungs do sound improved on 07/14, continue to monitor. # Fall sustained a fall slipping from the bed and no apparent traumatic injuries. found on the floor having apparently fallen out of the bed evening of admission that was unwitnessed there were no apparent injuries Trauma alert was activated erroneously because of limited prehospital history. Tertiary survey on 07/12 w/o injury #Possible mild acute metabolic encephalopathy related to the infections above | Ambulatory dysfunction Unable to mobilize independently, likely secondary to infections; remains forgetful or little confused at times which may be her baseline. no longer lethargic PT and OT consultation - recommend ongoing skilled PT and OT in the hospital may benefit from rehab depending on clinical progress not currently safe for discharge alone without 24/7 supervision CM did meet w/ pt on 07/11 - indicating daughter is with patient during day & brother during evenings. #CAD with hx LV thrombus/inferoapical wma, and history of stroke these are stable, no focal neurological deficits CP on 07/13 - EKG without signs of ischemia & Trop neg. Continue to monitor s/s. #Minimal myocardial demand ischemia Extensive coronary calcifications on CT minimal troponin elevation due to myocardial demand ischemia from infections on admission. No evidence of acute coronary syndrome. Continue Xarelto, aspirin, metoprolol, HCTZ Followed by Samm Lizarraga in cardiology clinic # Hypertension- Continue metoprolol, resume hydrochlorothiazide # Hyperlipidemia- Continue rosuvastatin 10 mg # CKD stage 3 - Mild creatinine elevation. - resolved after IV fluids # Severe right hip osteoarthritis - tylenol prn DVT prophylaxis: Xarelto Code: DNR/DNI Updated family at bedside 07/13. Continue inpatient stay developing a safe discharge plan. Admission and Anticipated Discharge Date Admission Date: July 11, 2025 Supervising Physician Co-Signing Physician Notes The patient was not seen by me. The chart was reviewed. Case discussed with PREETI Cisse. Agree with assessment and plan Subjective Michelle was seen & examined with family at bedside. Licensed Clinical Psychologist keegan used. Patient reports she has been having ongoing chest pain since yesterday evening although nursing reported she denied pain on assessment this AM. States she notices it most with walking. Denies any SOB. Denies N/V. Physical Exam Physical Exam: General: NAD, VS: BP 129/69; P56; R16; T36.9C Resp: normal respiratory effort, lungs clear to auscultation CV: RRR, no murmur Extremities: no edema Neuro: A&O x3 Skin: intact, no lesions noted Results & Data Results & Data Vital Signs (Past 12 Hours) Vital Signs Temp Pulse Resp BP Pulse Ox O2 Del Method 07/13/25 07:14 36.9 C 56 L 16 129/69 92 Room Air PG Care Time/CCT Total # of Minutes Spent Total Time Spent with Patient: Total time spent is greater than 50% in coordination of care (as documented) at patient's floor/unit and/or counseling patient: Coding Level of Care Code 33662 SUB INP/OBS CARE 2/35MIN Diagnoses Acute UTI (urinary tract infection) N39.0 COVID-19 U07.1 Coronary artery disease involving [place] coronary artery of [place] heart without angina pectoris I25.10 Associated angina: without angina Coronary Disease-Associated Artery/Lesion type: [place] artery [place] vs. transplanted heart: [place] heart Hypertension, unspecified type I10 Hypertension type: unspecified Fall W19.XXXA (3) CAD (coronary artery disease) Associated angina: without angina Coronary Disease-Associated Artery/Lesion type: [place] artery [place] vs. transplanted heart: [place] heart Qualified Code(s): I25.10 - Atherosclerotic heart disease of [place] coronary artery without angina pectoris (4) Hypertension Hypertension type: unspecified Qualified Code(s): I10 - Essential (primary) hypertension"
[2025-07-14] MEDS ORDERED: Nursing to Pharmacy Communication SCH (14:45)
--- NOTE | 2025-07-14 14:58 | Discharge Summary ---
"Discharge Summary Date of Service July 14, 2025 Principal Dx & Hospital Course #1 = Principal Diagnosis (1) Acute UTI (urinary tract infection): (2) COVID-19: (3) CAD (coronary artery disease): (4) Hypertension: (5) Fall: Plan #E. 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 Found to have a UTI and COVID. UTI was treated with ceftriaxone/kelfex, completed course prior to discharge from the hospital. #COVID-19 - mild hypoxia, now stable on room air. CXR 07/12 revealed no focal consolidation. peribronchial cuffing that may be seen with bronchiolitis. s/p remdesivir 3-day course. Tessalon as needed for cough, advised to use Mucinex OTC if needed. # Fall - sustained a fall slipping from the bed and no apparent traumatic injuries. Trauma alert was activated erroneously because of limited prehospital history. Tertiary survey on 07/12 w/o injury #Possible mild acute metabolic encephalopathy related to the infections above | Ambulatory dysfunction - PT/OT rec home with 24 hour supervision or rehab, spoke with Granddaughter and family has arranged schedule to have 24 hour care and would not like rehab. Close PCP follow up #CAD with hx LV thrombus/inferoapical wma, and history of stroke - no acute issues. #Minimal myocardial demand ischemia - Extensive coronary calcifications on CT. Minimal troponin elevation due to myocardial demand ischemia from infections on admission. No evidence of acute coronary syndrome. Continue Xarelto, aspirin, metoprolol, HCTZ. Routine Cardiology followup. # Hypertension- Continue metoprolol, resume hydrochlorothiazide # Hyperlipidemia- Continue rosuvastatin 10 mg # CKD stage 3 - Mild creatinine elevation. - resolved after IV fluids # Severe right hip osteoarthritis - tylenol prn Dispo: discharge to home with family support Granddaughter updated by phone 07/14 Notes For Next Care Provider Medication Changes From Visit none Admission HPI Per Admitting Provider 85-year-old woman slipped off her bed. Limited historian, but with [place]ian video merchant miller and daughter, determined she was in usual state of mobility until yesterday when she became weaker and had more trouble getting around. This morning, she slid off the side of her bed and fell onto the floor while alone. Too weak to get up, daughter brought her in. EMS transported her to ED. Reports coughing, nasal congestion, chills, upper central chest pain with coughing, nausea without vomiting, dysuria, urinary frequency, generalized weakness, malaise, and body soreness. No sore throat, abdominal pain, diarrhea, headache, or neck soreness. Symptoms started Monday. No sick contacts. Daughter reports past COVID-19 infection, not vaccinated. No significant injury from fall. Low back pain related to fall. Slid off bed, not a fall from standing. Did not hit head. Has some chronic hip pain related to osteoarthritis unchanged I interviewed her with a [place]ian audio merchant miller, video was not unavailable. Also her daughter who speaks Greek and [place]ian was at the bedside and provided additional history Discharge Exam General: NAD, VS as above Resp: normal respiratory effort, lungs clear to auscultation anteriorly, no cough CV: RRR, no murmur, Abd: normal bowel sounds, non tender, soft Extremities: Moves all extremities, no edema Neuro: A&O x3, Discharge Plan Discharge Items Patient Disposition: Home - Self-Care Reason For Visit: UTI, COVID Discharge Diagnosis: UTI, COVID Condition on Discharge: Fair Activity: As commented below Activity Comment: gradually increase as tolerated Weightbearing: Full weightbearing Non-emergency contact: Primary Care Provider Call non-emergency contact if: you have any medication questions, your symptoms worsen and your temperature is above 101 Follow-up/Referrals: Dodie Mares MD [Primary Care Provider] - 07/16/25 3:20 pm Diet: Regular Addtl Attending Provider Instructions: Ms. Dickey, You were hospitalized after having congestion, weakness and urinary symptoms at home. You were found to have COVID and a urinary tract infection. For the urinary tract infection, you completed a course of antibiotics while you were here. Continue to stay hydrated to prevent further infections. For COVID you had mild symptoms and were treated with 3 days of remdesivir. You have remained stable on room air. If your cough/mucus is bothersome, you can take Mucinex over the counter. You were seen by physical therapy and occupational therapy because of your weakness and they recommended that you have 24 hour supervision to prevent falls. No other changes to your home medications. Activity: You can do normal everyday activities as your body allows. Take rest breaks if you feel tired. Do not overexert. Stop activity if you have pain, shortness of breath or feel dizzy. Follow-up appointments: Make an appointment with your primary care physician within one week of discharge. A copy of this summary will be sent to them. Every time you see your primary care physician, or any other doctor, bring your medication list, and a list of questions. CONTACT YOUR PRIMARY CARE PROVIDER if you experience any of the following: Shortness of breath or difficulty breathing Fevers or chills Feeling tired with normal activity or experiencing dizziness or fainting Difficulty following your treatment plan, or difficulty taking medications CALL 911 OR GO TO THE EMERGENCY DEPARTMENT if you experience any of the following: Severe abdominal pain or nausea/vomiting Severe chest pain, or chest pain that radiates (moves) to your jaw or arm Sudden, severe shortness of breath or difficulty breathing Thank you for allowing us to participate in your care. Pending Studies at Discharge: No Stand-Alone Forms: My [facility], Smoking Cessation Medications and DC Order Prescriptions: Continued cholecalciferol (vitamin D3) 50 mcg (2,000 unit) capsule 50 mcg PO DAILY Qty: 90 3RF Rx Instructions: with heaviest meal of the day (DME) diaper,brief,adult,disposable Misc See Rx Instructions .Route Qty: 60 11RF Rx Instructions: PULL-UP BRIEFS, SIZE LARGE, USING 2 A DAY aspirin [Adult Low Dose Aspirin] 81 mg tablet,delayed release (DR/EC) 0 mg PO DAILY Rx Instructions: UNABLE TO VERIFY cyanocobalamin (vitamin B-12) 2,500 mcg tablet, sublingual 2,500 mcg SL DAILY Eliquis 5 mg tablet 5 mg PO Q12H Qty: 180 3RF Rx Instructions: Filled 12/21/23 for 90 day supply hydrochlorothiazide 25 mg tablet 25 mg PO DAILY Qty: 90 3RF metoprolol succinate 100 mg tablet extended release 24 hr 150 mg PO DAILY Qty: 135 3RF rosuvastatin 10 mg tablet 10 mg PO DAILY Qty: 90 3RF Discharge Orders: Discharge Order (Routine); Ordered 07/14/25 Ordered By: Kassandra Do/Other Patient Handouts: COVID-19 Home Care Admission Data Admit Date/Time: 07/11/25 15:34 Attending Provider: Raheel Ramirez Admit Provider: Precious Rodas Primary Care Provider: Dodie Mares V. Other Providers: Precious Rodas Hospital Stay Data Consultations 07/10/25 13:40 ED Decision to Admit Stat Diagnostic Imagining Performed Abdomen/Pelvis CT 07/10/25 11:30 CT SCAN OF THE ABDOMEN AND PELVIS WITH IV CONTRAST CLINICAL HISTORY: Fall. COMPARISON STUDY: Pelvis CT April 24, 2024. CT of the abdomen and pelvis June 08, 2019. TECHNIQUE: Following the IV administration of 93 cc of Optiray 320, CT scan of the abdomen and pelvis is performed from the lung bases to the proximal femora. Images are reviewed in the axial, sagittal, and coronal planes. IV contrast was administered without complication. A dose lowering technique was utilized adhering to the principles of ALARA. FINDINGS: Please note that the chest CT will be reported separately. There is no hemoperitoneum or pneumoperitoneum. No evidence for traumatic injury to the liver, spleen, adrenal glands, kidneys or pancreas. A 2.1 cm right renal cyst is present. There are bilateral renal parapelvic cysts. No bowel wall thickening. There is a moderate amount of stool within the rectum. No evidence for a bowel obstruction. No free fluid is present. Bladder wall thickening is noted. This may be chronic. There are no acute fractures within the lumbar spine, pelvis or hips. There is severe right hip osteoarthritis. IMPRESSION: 1. No acute traumatic findings within the abdomen or pelvis. 2. Bladder wall thickening which could be correlated with urinalysis. ACT 112: Negative or not required by law. Electronically signed by: Orion Huynh M.D. 07/10/2025 12:[address] 07/10/25 11:30 CT SCAN OF THE CERVICAL SPINE CLINICAL HISTORY: Fall. COMPARISON STUDY: CTA of the neck January 12, 2024. TECHNIQUE: CT scan of the cervical spine is performed from the skull base to the upper thoracic spine. Images are reviewed in the axial, sagittal, and coronal planes. IV contrast was not administered for this examination. A dose lowering technique was utilized adhering to the principles of ALARA. FINDINGS: Skeletal structures: This exam is mildly compromised by artifact. There is no evidence of fracture or subluxation involving the cervical spine. Vertebral body height and alignment are maintained. The odontoid process and lateral masses are intact. The atlantoaxial articulation is preserved. The spinous processes appear intact. There is moderate multilevel disc space narrowing, endplate osteophytosis and facet arthrosis within the cervical spine. Soft tissues: The prevertebral and paraspinous soft tissues are within normal limits. Calvarium: The visualized calvarium at the skull base appears intact. Brain parenchyma: Partially visualized brain parenchyma at the skull base is within normal limits. Lung apices: Clear as visualized. IMPRESSION: No acute cervical spine fracture or subluxation. Exam mildly compromised by artifact. ACT 112: Negative or not required by law. Electronically signed by: Orion Huynh M.D. 07/10/2025 12:[address] 07/10/25 11:[address] WITH CONTRAST HISTORY: Acute chest trauma Trauma TECHNIQUE: Multiaxial CT images of the chest were performed following the IV administration of 93 cc of Optiray. A dose lowering technique was utilized adhering to the principles of ALARA. COMPARISON: Chest CT 11/20/2024, Chest CT March 03, 2024. Chest CT June 08, 2019. Chest CT October 26, 2023. FINDINGS: Unremarkable thyroid. No enlarged axillary, mediastinal or hilar lymph nodes are present. There is extensive coronary artery calcification. The size the heart is normal. There is no pericardial effusion. No pneumothorax or pleural effusion is present. Mild right hemidiaphragmatic elevation. There are stable postoperative findings within the right upper lobe. Stable postthoracotomy changes are noted within the right chest wall. A 5 mm nodule along the right major fissure on image 90 is unchanged from earlier exams. This is benign given stability. 6 mm subpleural nodular density within the right upper lobe on image 50 is also unchanged since prior exam. This is stable to decreased in size from earlier studies and represents scarring. Additional subpleural densities are unchanged and favor scarring. No consolidation to suggest pneumonia. No new pulmonary nodules. Right-sided parapelvic cysts are incidentally noted. IMPRESSION: 1. No acute posttraumatic intrathoracic abnormality. 2. No suspicious pulmonary nodules. 3. Chronic postoperative changes of the right lung with stable benign-appearing nodular foci as above. 4. Extensive coronary artery calcifications. ACT 112: Negative or not required by law. Electronically signed by: Hieu White M.D. 07/10/2025 12:21 PM Chest X-Ray 07/10/25 11:30 XR chest 1V portable CLINICAL HISTORY: Trauma. COMPARISON STUDY: Chest CT November 20, 2024. Chest radiograph April 28, 2025. FINDINGS: Lordotic positioning is noted. There are postoperative findings within the right hemithorax. No pneumothorax is identified. There is no pleural effusion. Cardiomegaly is again noted. There is no evidence for overt pulmonary edema. Apparent left-sided rib deformities are likely artifactual. IMPRESSION: No acute cardiopulmonary findings. ACT 112: Negative or not required by law. Electronically signed by: Orion Huynh M.D. 07/10/2025 11:[address] 07/10/25 11:30 CT SCAN OF THE BRAIN WITHOUT IV CONTRAST CLINICAL HISTORY: Trauma COMPARISON STUDY: CT of the brain dated 03/03/2024 TECHNIQUE: Unenhanced CT scan of the brain is performed from the vertex to the skull base. Images are reviewed in the axial, sagittal, coronal planes. A dose lowering technique was utilized adhering to the principles of ALARA. CT DOSE: 3617.86 mGy.cm FINDINGS: Brain parenchyma: A small focus of right posterior parietal encephalomalacia is unchanged and consistent with a remote insult. There is age-related involutional change noting moderate subcortical and periventricular microangiopathic disease. There is no hemorrhage, mass effect, or evidence of acute territorial ischemia by CT criteria. [place]-white matter differentiation is preserved. No extra-axial fluid collection is seen. Ventricles, sulci, cisterns: Prominent secondary to involutional change. Intracranial vasculature: There is atherosclerotic calcification of the cavernous carotid and vertebral arteries. Calvarium: Unremarkable. Sinuses and mastoids: There is [id number] mucosal thickening within the ethmoid sinuses. Mild mucosal thickening is also seen in the maxillary antra. The mastoid air cells are well pneumatized. Orbits: The bony orbits are grossly intact. There are bilateral ocular lens implants. IMPRESSION: There is no hemorrhage, mass effect, or evidence of acute territorial ischemia by CT criteria. ACT 112: Negative or not required by law. Electronically signed by: Kirit Pablo M.D. 07/10/2025 12:18 PM Pelvis X-Ray 07/10/25 11:30 XR pelvis 1-2V routine HISTORY: 85 years-old Female Trauma acute pelvic trauma COMPARISON: 04/24/2024 TECHNIQUE: AP view of the pelvis FINDINGS: Hfhi-ga-tuckianl left with severe right hip osteoarthritis. Numerous benign appearing corticated ossifications project over the pelvis. Prominent subcortical cystic changes of the right femoral head. Arterial calcifications. No acute fracture or dislocation identified. IMPRESSION: 1. No acute fracture or dislocation. 2. Severe osteoarthritis of the right hip ACT 112: Negative or not required by law. The above report was generated using voice recognition software. It may contain grammatical, syntax or spelling errors. Electronically signed by: Hieu White M.D. 07/10/2025 11:46 AM Chest X-Ray 07/12/25 15:51 EXAM: Portable AP chest radiograph TECHNIQUE: AP portable radiograph of the chest was obtained. INDICATION: Shortness of breath Comparison: Chest radiograph [address] of July 10, 2025 is not viewable in our system. FINDINGS: LINES and TUBES: None CARDIOVASCULAR: Cardiac silhouette is stably enlarged. Atherosclerosis of the thoracic aorta. LUNGS/PLEURA: No focal consolidation identified. Peribronchial cuffing that may be seen with bronchiolitis. Mild pulmonary vascular congestion and chronic interstitial lung changes appear similar to the prior radiograph. Redemonstrated surgical chain suture over the right upper hemithorax. No significant pleural fluid. No discernible pneumothorax. IMPRESSION: No focal consolidation identified. Peribronchial cuffing that may be seen with bronchiolitis. Electronically signed by Dante Tai 07-12-2025 6:19 PM Pending Results Patient Have Any Pending Studies at Discharge: No Discharge Instructions Given to Patient (Per Discharging Provider) Ms. Dickey, [place] were hospitalized after having congestion, weakness and urinary symptoms at home. You were found to have COVID and a urinary tract infection. For the urinary tract infection, you completed a course of antibiotics while you were here. Continue to stay hydrated to prevent further infections. For COVID you had mild symptoms and were treated with 3 days of remdesivir. You have remained stable on room air. If your cough/mucus is bothersome, you can ta ke Mucinex over the counter. You were seen by physical therapy and occupational therapy because of your weakness and they recommended that you have 24 hour supervision to prevent falls. No other changes to your home medications. Activity: You can do normal everyday activities as your body allows. Take rest breaks if you feel tired. Do not overexert. Stop activity if you have pain, shortness of breath or feel dizzy. Follow-up appointments: Make an appointment with your primary care physician within one week of discharge. A copy of this summary will be sent to them. Every time you see your primary care physician, or any other doctor, bring your medication list, and a list of questions. CONTACT YOUR PRIMARY CARE PROVIDER if you experience any of the following: Shortness of breath or difficulty breathing Fevers or chills Feeling tired with normal activity or experiencing dizziness or fainting Difficulty following your treatment plan, or difficulty taking medications CALL 911 OR GO TO THE EMERGENCY DEPARTMENT if you experience any of the following: Severe abdominal pain or nausea/vomiting Severe chest pain, or chest pain that radiates (moves) to your jaw or arm Sudden, severe shortness of breath or difficulty breathing Thank you for allowing us to participate in your care. Total Time Total Time Spent Total Time Spent (In Minutes): Time spent day of discharge 36 minutes including direct patient care, medication reconciliation, documentation, review of labs and images, and coordination of care. discussed with CM Coding Level of Care Code 44009 INP/OBS DISCH >30 MIN Diagnoses Acute UTI (urinary tract infection) N39.0 COVID-19 U07.1 Coronary artery disease involving [place] coronary artery of [place] heart without angina pectoris I25.10 Coronary Disease-Associated Artery/Lesion type: [place] artery [place] vs. transplanted heart: [place] heart Associated angina: without angina Hypertension, unspecified type I10 Hypertension type: unspecified Fall W19.XXXA"
--- NOTE | 2025-07-14 16:52 | Communication Note ---
Date of Service: July 14, 2025 Plan for home today with family support. Granddaughter, fredy called in saying now they want patient to go to rehab. Message sent to CM , but suspect gone for the day. Will have to follow up tomorrow. Discharge order cancelled.
--- NOTE | 2025-07-15 13:44 | Hospitalist Progress Note ---
"Date of Service July 15, 2025 Assessment & Plan (1) Acute UTI (urinary tract infection): (2) COVID-19: (3) CAD (coronary artery disease): (4) Hypertension: (5) Fall: Plan #E. 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 Found to have a UTI and COVID. UTI was treated with ceftriaxone/kelfex, completed course prior to discharge from the hospital. #COVID-19 - mild hypoxia, now stable on room air. CXR 07/12 revealed no focal consolidation. peribronchial cuffing that may be seen with bronchiolitis. s/p r emdesivir 3-day course. Tessalon as needed for cough, # Fall - sustained a fall slipping from the bed and no apparent traumatic injuries. Trauma alert was activated erroneously because of limited prehospital history. Tertiary survey on 07/12 w/o injury #Possible mild acute metabolic encephalopathy related to the infections above | Ambulatory dysfunction - PT/OT rec home with 24 hour supervision or rehab, initial plan was home with family 20/02 support, but discharge canceled as now desire rehab. CM following, referalls placed #CAD with hx LV thrombus/inferoapical wma, and history of stroke - no acute issues. #Minimal myocardial demand ischemia - Extensive coronary calcifications on CT. Minimal troponin elevation due to myocardial demand ischemia from infections on admission. No evidence of acute coronary syndrome. Continue Xarelto, aspirin, metoprolol, HCTZ. Routine Cardiology followup. # Hypertension- Continue metoprolol, resume hydrochlorothiazide # Hyperlipidemia- Continue rosuvastatin 10 mg # CKD stage 3 - Mild creatinine elevation. 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 denies pain or SOB does feel alittle weak with ambulating no acute concerns Review of Systems Review of Systems: All systems reviewed & are unremarkable except as noted in Subjective Physical Exam Physical Exam: General: NAD, VS as above Resp: normal respiratory effort, lungs clear to auscultation CV: RRR, no murmur, Abd: normal bowel sounds, non tender, soft Extremities: Moves all extremities, no edema Results & Data Results & Data Vital Signs (Past 12 Hours) Vital Signs Temp Pulse Resp BP Pulse Ox O2 Del Method 07/15/25 07:50 Room Air 07/15/25 07:00 97.9 F 51 L 18 120/68 92 Room Air PG Care Time/CCT Total # of Minutes Spent Total Time Spent with Patient: Total time spent is greater than 50% in coordination of care (as documented) at patient's floor/unit and/or counseling patient: Coding Level of Care Code 28911 SUB INP/OBS CARE 08/24MIN Diagnoses Acute UTI (urinary tract infection) N39.0 COVID-19 U07.1 Coronary artery disease involving [place] coronary artery of [place] heart without angina pectoris I25.10 Coronary Disease-Associated Artery/Lesion type: [place] artery [place] vs. transplanted heart: [place] heart Associated angina: without angina Hypertension, unspecified type I10 Hypertension type: unspecified Fall W19.XXXA (3) CAD (coronary artery disease) Coronary Disease-Associated Artery/Lesion type: [place] artery [place] vs. transplanted heart: [place] heart Associated angina: without angina Qualified Code(s): I25.10 - Atherosclerotic heart disease of [place] coronary artery without angina pectoris (4) Hypertension Hypertension type: unspecified Qualified Code(s): I10 - Essential (primary) hypertension"
--- NOTE | 2025-07-16 06:13 | Electrocardiogram Report ---
Test Reason : Blood Pressure : */* mmHG Vent. Rate : 58 BPM Atrial Rate : 58 BPM P-R Int : 216 ms QRS Dur : 104 ms QT Int : 442 ms P-R-T Axes : 50 -13 19 degrees QTcB Int : 433 ms Sinus bradycardia with 1st degree A-V block Minimal voltage criteria for LVH, may be normal variant ( Kb product ) Borderline ECG When compared with ECG of 10-Jul-2025 11:43, No significant change was found Confirmed by Lino Chavarria ([id number]) on 07/16/2025 6:12:49 AM Referred By: REFERRED SELF Confirmed By: iLno Chavarria
[2025-07-16] MEDS: guaiFENesin 600 MG TABCR PO SCH (11:17)
--- NOTE | 2025-07-16 16:54 | Hospitalist Progress Note ---
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 Found to have a UTI and COVID. #E. coli UTI UTI was treated with ceftriaxone/kelfex, completed course #COVID-19 - mild hypoxia, now stable on room air. CXR 07/12 revealed no focal consolidation. peribronchial cuffing that may be seen with bronchiolitis. s/p remdesivir 3-day course. Tessalon as needed for cough, reporting chest pain and left 07/16troponin was negative, EKG without concerns for ACS. Chest pain is reproducible on exam and suspect related to her coughing. Mucinex added and flutter valve ordered # Fall - sustained a fall slipping from the bed and no apparent traumatic injuries. Trauma alert was activated erroneously because of limited prehospital history. Tertiary survey on 07/12 w/o injury #Possible mild acute metabolic encephalopathy related to the infections above | Ambulatory dysfunction - PT/OT rec home with 24 hour supervision or rehab, initial plan was home with family 20/02 support, but discharge canceled as now desire rehab. CM following, referrals placed # Presumed CAD with hx LV thrombus/inferoapical wma, and history of stroke - no acute issues. -On Eliquis - Restart home aspirin #Minimal myocardial demand ischemia - Extensive coronary calcifications on CT. Minimal troponin elevation due to myocardial demand ischemia from infections on admission. No evidence of acute coronary syndrome. Continue Xarelto, aspirin, metoprolol, HCTZ. Routine Cardiology followup. # Hypertension- Continue metoprolol, resume hydrochlorothiazide # Hyperlipidemia- Continue rosuvastatin 10 mg # CKD stage 3 - Mild creatinine elevation. 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 Patient reported some chest pain after she was up and walking to the bathroom, denies associated shortness of breath. Patient and family report that she has been coughing a lot. Review of Systems Review of Systems: All systems reviewed & are unremarkable except as noted in Subjective Physical Exam Physical Exam: General: NAD, VS as above Resp: normal respiratory effort, lungs clear to auscultation CV: RRR, no murmur, Significant reproducible chest pain over left chest wall - no bruising or erythema to the area Abd: normal bowel sounds, non tender, soft Extremities: Moves all extremities, no edema Neuro: A&O x3, Results & Data Results & Data Vital Signs (Past 12 Hours) Vital Signs Temp Pulse Resp BP Pulse Ox O2 Del Method 07/16/25 15:00 97.3 F L 81 18 126/76 93 Room Air 07/16/25 07:30 Room Air 07/16/25 07:00 98.4 F 57 L 18 125/72 91 Room Air Laboratory Results troponin reviewed Diagnostic Findings EKG reviewed PG Care Time/CCT Total # of Minutes Spent Total Time Spent with Patient: Total time spent is greater than 50% in coordination of care (as documented) at patient's floor/unit and/or counseling patient: Coding Level of Care Code 32245 SUB INP/OBS CARE 2/35MIN Diagnoses Acute UTI (urinary tract infection) N39.0 COVID-19 U07.1 Coronary artery disease involving [place] coronary artery of [place] heart without angina pectoris I25.10 Associated angina: without angina Coronary Disease-Associated Artery/Lesion type: [place] artery [place] vs. transplanted heart: [place] heart Hypertension, unspecified type I10 Hypertension type: unspecified Fall W19.XXXA (3) CAD (coronary artery disease) Associated angina: without angina Coronary Disease-Associated Artery/Lesion type: [place] artery [place] vs. transplanted heart: [place] heart Qualified Code(s): I25.10 - Atherosclerotic heart disease of [place] coronary artery without angina pectoris (4) Hypertension Hypertension type: unspecified Qualified Code(s): I10 - Essential (primary) hypertension"
[2025-07-17] MEDS: ASPIRIN 81 MG ECTAB PO SCH (08:07)
[2025-07-17] MEDS: CYANOCOBALAMIN (B-12) 2,500 MCG TABLET SL SCH (08:07)
--- NOTE | 2025-07-17 12:09 | Hospitalist Progress Note ---
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 Found to have a UTI and COVID. #E. coli UTI UTI was treated with ceftriaxone/kelfex, completed course #COVID-19 - mild hypoxia, now stable on room air. CXR 07/12 revealed no focal consolidation. peribronchial cuffing that may be seen with bronchiolitis. s/p remdesivir 3-day course. Tessalon as needed for cough, Reported chest pain 07/16troponin was negative, EKG without concerns for ACS. Chest pain is reproducible on exam and suspect related to her coughing. 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 Trauma alert was activated erroneously because of limited prehospital history. Tertiary survey on 07/12 w/o injury #Possible mild acute metabolic encephalopathy related to the infections above | Ambulatory dysfunction - PT/OT rec home with 24 hour supervision or rehab, initial plan was home with family 20/02 support, but discharge canceled as now desire rehab. CM following, referrals placed # Presumed CAD with hx LV thrombus/inferoapical wma, and history of stroke - no acute issues. -On Eliquis - Restart home aspirin #Minimal myocardial demand ischemia - Extensive coronary calcifications on CT. Minimal troponin elevation due to myocardial demand ischemia from infections on admission. No evidence of acute coronary syndrome. Continue Xarelto, aspirin, metoprolol, HCTZ. Routine Cardiology followup. # Hypertension- Continue metoprolol, resume hydrochlorothiazide # Hyperlipidemia- Continue rosuvastatin 10 mg # CKD stage 3 - Mild creatinine elevation. - resolved after IV fluids - Resume HCTZ # Severe right hip osteoarthritis - tylenol prn Dispo: continued inpatient stay, awaiting safe discharge location Granddaughter updated by phone 07/14, family updated in person 07/16 Admission and Anticipated Discharge Date Admission Date: July 11, 2025 Supervising Physician Co-Signing Physician Notes PA Supervision Note: I did not personally see or examine the patient today, but I verified all navarro points of PREETI Rincon's assessment and plan with the following exceptions/additions: None Subjective Patient seen lying in bed, family present at bedside. iPad dishwasher used for translation. Patient reports feeling okay reports stuffy nose and cough. Denies any further chest pain. Appetite is okay. Discussed that we are still waiting for safe discharge plan. Review of Systems Review of Systems: All systems reviewed & are unremarkable except as noted in Subjective Physical Exam Physical Exam: General: NAD, VS as above Resp: normal respiratory effort, lungs clear to auscultation CV: RRR, no murmur, Chest pain on palpation is much improved Abd: normal bowel sounds, non tender, soft Extremities: Moves all extremities, no edema Neuro: A&O x3, Results & Data Results & Data Vital Signs (Past 12 Hours) Vital Signs Temp Pulse BP Pulse Ox O2 Del Method 07/17/25 08:00 Room Air 07/17/25 07:00 98.2 F 58 L 122/74 95 Room Air PG Care Time/CCT Total # of Minutes Spent Total Time Spent with Patient: Total time spent is greater than 50% in coordination of care (as documented) at patient's floor/unit and/or counseling patient: Coding Level of Care Code 23224 SUB INP/OBS CARE 08/24MIN Diagnoses Acute UTI (urinary tract infection) N39.0 COVID-19 U07.1 Coronary artery disease involving [place] coronary artery of [place] heart without angina pectoris I25.10 Associated angina: without angina Coronary Disease-Associated Artery/Lesion type: [place] artery [place] vs. transplanted heart: [place] heart Hypertension, unspecified type I10 Hypertension type: unspecified Fall W19.XXXA (3) CAD (coronary artery disease) Associated angina: without angina Coronary Disease-Associated Artery/Lesion type: [place] artery [place] vs. transplanted heart: [place] heart Qualified Code(s): I25.10 - Atherosclerotic heart disease of [place] coronary artery without angina pectoris (4) Hypertension Hypertension type: unspecified Qualified Code(s): I10 - Essential (primary) hypertension"
[2025-07-18 07:32] VITALS: BP 163/93; PULSE 83; TEMP 97.9
[2025-07-18 08:55] VITALS: RESP 20; O2SAT 92
--- NOTE | 2025-07-18 11:31 | Discharge Summary ---
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 Found to have a UTI and COVID. #E. coli UTI UTI was treated with ceftriaxone/kelfex, completed course #COVID-19 - mild hypoxia, now stable on room air. CXR 07/12 revealed no focal consolidation. peribronchial cuffing that may be seen with bronchiolitis. s/p remdesivir 3-day course. Tessalon as needed for cough, Reported chest pain 07/16troponin was negative, EKG without concerns for ACS. Chest pain is reproducible on exam and suspect related to her coughing. Mucinex added and flutter valve ordered. PT day 11 after confirmed dx, clinically improved, d/c precautions. 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 Trauma alert was activated erroneously because of limited prehospital history. Tertiary survey on 07/12 w/o injury #Possible mild acute metabolic encephalopathy related to the infections above | Ambulatory dysfunction - PT/OT rec home with 24 hour supervision or rehab, initial plan was home with family 20/02 support, but discharge canceled as now desire rehab. CM following, referrals placed # Presumed CAD with hx LV thrombus/inferoapical wma, and history of stroke - no acute issues. -On Eliquis - Restart home aspirin #Minimal myocardial demand ischemia - Extensive coronary calcifications on CT. Minimal troponin elevation due to myocardial demand ischemia from infections on admission. No evidence of acute coronary syndrome. Continue Xarelto, aspirin, metoprolol, HCTZ. Routine Cardiology followup. # Hypertension- Continue metoprolol, resume hydrochlorothiazide # Hyperlipidemia- Continue rosuvastatin 10 mg # CKD stage 3 - Mild creatinine elevation. - resolved after IV fluids - Resume HCTZ # Severe right hip osteoarthritis - tylenol prn [facility] able to accept patient today. She is medically stable for discharge. F/u with house physician at facility within 24-48 hrs. Admission HPI Per Admitting Provider 85-year-old woman slipped off her bed. Limited historian, but with Uzbek video cover creaser and daughter, determined she was in usual state of mobility until yesterday when she became weaker and had more trouble getting around. This morning, she slid off the side of her bed and fell onto the floor while alone. Too weak to get up, daughter brought her in. EMS transported her to ED. Reports coughing, nasal congestion, chills, upper central chest pain with coughing, nausea without vomiting, dysuria, urinary frequency, generalized weakness, malaise, and body soreness. No sore throat, abdominal pain, diarrhea, headache, or neck soreness. Symptoms started Monday. No sick contacts. Daughter reports past COVID-19 infection, not vaccinated. No significant injury from fall. Low back pain related to fall. Slid off bed, not a fall from standing. Did not hit head. Has some chronic hip pain related to osteoarthritis unchanged I interviewed her with a Uzbek audio cover creaser, video was not unavailable. Also her daughter who speaks Niuean and Uzbek was at the bedside and provided additional history Discharge Exam General: 85 yo elderly F, A&Ox3 no distress Resp: normal respiratory effort, lungs clear to auscultation CV: RRR, no murmur, Chest pain on palpation is much improved Abd: bowel sounds normoactive x4 quad, non tender, soft Extremities: Moves all extremities, no edema Neuro: A&O x3, no deficits Discharge Plan Discharge Items Patient Disposition: Home - Self-Care Reason For Visit: UTI, COVID Discharge Diagnosis: UTI, COVID Condition on Discharge: Fair Activity: As commented below Activity Comment: gradually increase as tolerated Weightbearing: Full weightbearing Non-emergency contact: Primary Care Provider Call non-emergency contact if: you have any medication questions, your symptoms worsen and your temperature is above 101 Follow-up/Referrals: Dodie Mares MD [Primary Care Provider] - Diet: Regular Addtl Attending Provider Instructions: Ms. Dickey, You were hospitalized after having congestion, weakness and urinary symptoms at home. You were found to have COVID and a urinary tract infection. For the urinary tract infection, you completed a course of antibiotics while you were here. Continue to stay hydrated to prevent further infections. For COVID you had mild symptoms and were treated with 3 days of remdesivir. You have remained stable on room air. If your cough/mucus is bothersome, you can take Mucinex over the counter. You were seen by physical therapy and occupational therapy because of your weakness and they recommended that you have 24 hour supervision to prevent falls. No other changes to your home medications. Activity: You can do normal everyday activities as your body allows. Take rest breaks if you feel tired. Do not overexert. Stop activity if you have pain, shortness of breath or feel dizzy. Follow-up appointments: Make an appointment with your primary care physician within one week of discharge. A copy of this summary will be sent to them. Every time you see your primary care physician, or any other doctor, bring your medication list, and a list of questions. CONTACT YOUR PRIMARY CARE PROVIDER if you experience any of the following: Shortness of breath or difficulty breathing Fevers or chills Feeling tired with normal activity or experiencing dizziness or fainting Difficulty following your treatment plan, or difficulty taking medications CALL 911 OR GO TO THE EMERGENCY DEPARTMENT if you experience any of the following: Severe abdominal pain or nausea/vomiting Severe chest pain, or chest pain that radiates (moves) to your jaw or arm Sudden, severe shortness of breath or difficulty breathing Thank you for allowing us to participate in your care. Pending Studies at Discharge: No Stand-Alone Forms: [facility], Smoking Cessation Medications and DC Order Prescriptions: Continued cholecalciferol (vitamin D3) 50 mcg (2,000 unit) capsule 50 mcg PO DAILY Qty: 90 3RF Rx Instructions: with heaviest meal of the day (DME) diaper,brief,adult,disposable Misc See Rx Instructions .Route Qty: 60 11RF Rx Instructions: PULL-UP BRIEFS, SIZE LARGE, USING 2 A DAY aspirin [Adult Low Dose Aspirin] 81 mg tablet,delayed release (DR/EC) 0 mg PO DAILY Rx Instructions: UNABLE TO VERIFY cyanocobalamin (vitamin B-12) 2,500 mcg tablet, sublingual 2,500 mcg SL DAILY Eliquis 5 mg tablet 5 mg PO Q12H Qty: 180 3RF Rx Instructions: Filled 12/21/23 for 90 day supply hydrochlorothiazide 25 mg tablet 25 mg PO DAILY Qty: 90 3RF metoprolol succinate 100 mg tablet extended release 24 hr 150 mg PO DAILY Qty: 135 3RF rosuvastatin 10 mg tablet 10 mg PO DAILY Qty: 90 3RF Discharge Orders: Discharge Order (Routine); Ordered 07/18/25 Ordered By: Bertha Do/Other Patient Handouts: COVID-19 Home Care Admission Data Admit Date/Time: 07/11/25 15:34 Attending Provider: Maddi Hardwick Admit Provider: Precious Rodas Primary Care Provider: Dodie Mares V. Other Providers: Precious Rodas; [facility]; [place],[facility] [place]; [facility] Other Interventions: Discharge Summary Assessment (RN) Last Done: 07/18/25 11:24 Hospital Stay Data Consultations 07/10/25 13:40 ED Decision to Admit Stat Diagnostic Imagining Performed 07/10/25 11:30 CT abd pelvis IV con only Stat CT cervical spine wo con Stat CT chest diagnostic w con Stat CT head/brain wo con Stat Pending Results Patient Have Any Pending Studies at Discharge: No Discharge Instructions Given to Patient (Per Discharging Provider) Ms. Dickey, [place] were hospitalized after having congestion, weakness and urinary symptoms at home. You were found to have COVID and a urinary tract infection. For the urinary tract infection, you completed a course of antibiotics while you were here. Continue to stay hydrated to prevent further infections. For COVID you had mild symptoms and were treated with 3 days of remdesivir. You have remained stable on room air. If your cough/mucus is bothersome, you can take Mucinex over the counter. You were seen by physical therapy and occupational therapy because of your weakness and they recommended that you have 24 hour supervision to prevent falls. No other changes to your home medications. Activity: You can do normal everyday activities as your body allows. Take rest breaks if you feel tired. Do not overexert. Stop activity if you have pain, shortness of breath or feel dizzy. Follow-up appointments: Make an appointment with your primary care physician within one week of discharge. A copy of this summary will be sent to them. Every time you see your primary care physician, or any other doctor, bring your medication list, and a list of questions. CONTACT YOUR PRIMARY CARE PROVIDER if you experience any of the following: Shortness of breath or difficulty breathing Fevers or chills Feeling tired with normal activity or experiencing dizziness or fainting Difficulty following your treatment plan, or difficulty taking medications CALL 911 OR GO TO THE EMERGENCY DEPARTMENT if you experience any of the following: Severe abdominal pain or nausea/vomiting Severe chest pain, or chest pain that radiates (moves) to your jaw or arm Sudden, severe shortness of breath or difficulty breathing Thank you for allowing us to participate in your care. Supervising Physician Co-Signing Physician Notes PA Supervision Note: I did not personally see or examine the patient today, but I verified all navarro points of PREETI Bello's assessment and plan with the following exceptions/additions: None Total Time Total Time Spent Total Time Spent (In Minutes): 33 minutes Coding Level of Care Code 36873 INP/OBS DISCH >30 MIN Diagnoses Acute UTI (urinary tract infection) N39.0 COVID-19 U07.1 Coronary artery disease involving [place] coronary artery of [place] heart without angina pectoris I25.10 Associated angina: without angina Coronary Disease-Associated Artery/Lesion type: [place] artery [place] vs. transplanted heart: [place] heart Hypertension, unspecified type I10 Hypertension type: unspecified Fall W19.XXXA"
--- NOTE | 2025-07-18 19:41 | Electrocardiogram Report ---
Test Reason : Blood Pressure : */* mmHG Vent. Rate : 79 BPM Atrial Rate : 79 BPM P-R Int : 214 ms QRS Dur : 112 ms QT Int : 422 ms P-R-T Axes : 43 -25 83 degrees QTcB Int : 483 ms Sinus rhythm with 1st degree A-V block Minimal voltage criteria for LVH, may be normal variant ( [place] product ) Prolonged QT Abnormal ECG When compared with ECG of 13-Jul-2025 10:46, Nonspecific T wave abnormality no longer evident in Anterior leads T wave inversion now evident in Lateral leads Confirmed by Lino Chavarria ([id number]) on 07/18/2025 7:41:19 PM Referred By: REFERRED SELF Confirmed By: Lino Chavarria
== END 2025-07-18 12:10 | DRG 689 ==
LOC: SUATTDRO → ED 11:18 → 3E 11:18 → SUATTDRO 07-11 15:34